=== PATIENT | female | born 1960 | race Caucasian/White ===

== ENCOUNTER 2019-02-24 09:42 | Inpatient (IN) | payer BC, OTHER ==
[~2019-02-24] VITALS: Ht 162.6 cm; Wt 110.2 kg
[~2019-02-24 09:42] MED LIST: ATEN25TA PO; ATOR40TA59 PO; BUPR100T6 PO; BUPR75TA5 PO; DABI150C PO; DABIGATRAN 75 MG; GENT30CR TP; GENTAMICIN; INSU100I13 SQ; INSULIN GLARGINE; LISI-130 PO; SERT25TA PO; SITA100T PO; TRIA15OI TP; triamcinolone cream
[2019-02-24 10:06] LABS: BASO # 0.1 x10^3/uL (0.0-0.2); BASO % 1 % (0-3); EOS # 0.1 x10^3/uL (0.0-0.7); EOS % 2 % (0-3); HEMATOCRIT 38.8 % (36.0-47.0); HEMOGLOBIN 13.1 g/dL (12.0-15.5); LYMPH # 2.2 x10^3/uL (1.0-4.8); LYMPH % 33 % (24-48); MEAN CORPUSCULAR HEMOGLOBIN 29 pg (25-35); MEAN CORPUSCULAR HGB CONC 34 g/dL (31-37); MEAN CORPUSCULAR VOLUME 87 fL (79-100); MONO # 0.4 x10^3/uL (0.0-1.1); MONO % 6 % (0-9); NEUT # 3.8 x10^3/uL (1.8-7.7); NEUT % 59 % (31-73); PLATELET COUNT 247 x10^3/uL (140-400); RED BLOOD COUNT 4.45 x10^6/uL (3.50-5.40); WHITE BLOOD COUNT 6.5 x10^3/uL (4.0-11.0)
--- NOTE | 2019-02-24 10:11 | PHYS DOC ---
Past Medical History Past Medical History: CVA, Diabetes-Type II, High Cholesterol, Hypertension Additional Past Medical Histor: PT HAD CVA IN 2010 WITH NO DEFICIT Past Surgical History: Knee Replacement, Other Additional Past Surgical Histo: R. ELBOW Alcohol Use: Occasionally Drug Use: None Adult General Chief Complaint Chief Complaint: SEIZURE HPI HPI Patient is a 59 year old female who presents with patient lives at [facility] because she had a stroke on December 17, 2018. Patient has right-sided deficits, right-sided facial droop and can only say yes or no. Patient does understand what you're saying and does follow commands. Today patient had a seizure that was witnessed by a the patient's roommate. Patient was sitting in her wheelchair when her left arm and head started moving to the left side that lasted approximately 2-3 minutes. Patient does not have a history of seizures. After the seizure the patient then slumped to the side but did not fall out of her wheelchair. She did not vomit. EMS and the Care Center states that the patient was postictal for 5-7 minutes but she is now at her baseline normal. Review of Systems Review of Systems Constitutional: Denies fever or chills [] Eyes: Denies change in visual acuity, redness, or eye pain [] HENT: Denies nasal congestion or sore throat [] Respiratory: Denies cough or shortness of breath [] Cardiovascular: No additional information not addressed in HPI [] GI: Denies abdominal pain, nausea, vomiting, bloody stools or diarrhea [] : Denies dysuria or hematuria [] Musculoskeletal: Denies back pain or joint pain [] Integument: Denies rash or skin lesions [] Neurologic: Seizure, headache, denies focal weakness or sensory changes [] Endocrine: Denies polyuria or polydipsia [] All other systems were reviewed and found to be within normal limits, except as documented in this note. Current Medications Current Medications Current Medications Medications (Trade) Dose Ordered Sig/Alice Start Time Stop Time Status Last Admin Dose Admin Sodium Chloride 1,000 ml @ 1,000 mls/hr 1X ONCE 02/24/19 10:45 02/24/19 11:44 Cancel Allergies Allergies Allergies Coded Allergies Type Severity Reaction Last Updated Verified Sulfa (Sulfonamide Antibiotics) Allergy Severe Anaphylaxis 07/22/14 Yes Physical Exam Physical Exam Constitutional: Well developed, well nourished, no acute distress, non-toxic appearance. [] HENT: Normocephalic, atraumatic, bilateral external ears normal, oropharynx moist, no oral exudates, nose normal. [] Eyes: PERRLA, EOMI, conjunctiva normal, no discharge. [] Neck: Normal range of motion, no tenderness, supple, no stridor. [] Cardiovascular:Heart rate regular rhythm, no murmur [] Lungs & Thorax: Bilateral breath sounds clear to auscultation [] Abdomen: Bowel sounds normal, soft, no tenderness, no masses, no pulsatile masses. [] Skin: Warm, dry, no erythema, no rash. [] Back: No tenderness, no CVA tenderness. [] Extremities: No tenderness, no cyanosis, no clubbing, Right arm and leg ROM not intact, no edema. [] Neurologic: Aphasia, Alert and oriented X 3, Right sided abnormal motor function, normal sensory function, Right sided focal deficits noted. [] Psychologic: Affect normal, judgement normal, mood normal. [] Current Patient Data Vital Signs Vital Signs Date Time Temp Pulse Resp B/P (MAP) Pulse Ox O2 Delivery O2 Flow Rate FiO2 02/24/19 11:06 86 16 96 02/24/19 09:44 98.7 151/73 (99) Room Air 98.7 Lab Values Laboratory Tests Test 02/24/19 09:55 02/24/19 11:04 White Blood Count 6.5 x10^3/uL (4.0-11.0) Red Blood Count 4.45 x10^6/uL (3.50-5.40) Hemoglobin 13.1 g/dL (12.0-15.5) Hematocrit 38.8 % (36.0-47.0) Mean Corpuscular Volume 87 fL (79-100) Mean Corpuscular Hemoglobin 29 pg (25-35) Mean Corpuscular Hemoglobin Concent 34 g/dL (31-37) Red Cell Distribution Width 14.0 % (11.5-14.5) Platelet Count 247 x10^3/uL (140-400) Neutrophils (%) (Auto) 59 % (31-73) Lymphocytes (%) (Auto) 33 % (24-48) Monocytes (%) (Auto) 6 % (0-9) Eosinophils (%) (Auto) 2 % (0-3) Basophils (%) (Auto) 1 % (0-3) Neutrophils # (Auto) 3.8 x10^3/uL (1.8-7.7) Lymphocytes # (Auto) 2.2 x10^3/uL (1.0-4.8) Monocytes # (Auto) 0.4 x10^3/uL (0.0-1.1) Eosinophils # (Auto) 0.1 x10^3/uL (0.0-0.7) Basophils # (Auto) 0.1 x10^3/uL (0.0-0.2) Prothrombin Time 13.4 SEC (11.7-14.0) Prothrombin Time INR 1.1 (0.8-1.1) Activated Partial Thromboplast Time 31 SEC (24-38) Sodium Level 143 mmol/L (136-145) Potassium Level 3.7 mmol/L (3.5-5.1) Chloride Level 105 mmol/L (98-107) Carbon Dioxide Level 27 mmol/L (21-32) Anion Gap 11 (6-14) Blood Urea Nitrogen 10 mg/dL (7-20) Creatinine 0.8 mg/dL (0.6-1.0) Estimated GFR (Cockcroft-Gault) 73.2 BUN/Creatinine Ratio 13 (6-20) Glucose Level 120 mg/dL (70-99) H Lactic Acid Level 3.8 mmol/L (0.4-2.0) H Calcium Level 9.2 mg/dL (8.5-10.1) Total Bilirubin 0.3 mg/dL (0.2-1.0) Aspartate Amino Transferase (AST) 12 U/L (15-37) L Alanine Aminotransferase (ALT) 13 U/L (14-59) L Alkaline Phosphatase 98 U/L (46-116) Troponin I Quantitative < 0.017 ng/mL (0.000-0.055) Total Protein 6.9 g/dL (6.4-8.2) Albumin 3.6 g/dL (3.4-5.0) Albumin/Globulin Ratio 1.1 (1.0-1.7) Urine Collection Type U cath Urine Color Yellow Urine Clarity Clear Urine pH 5.0 Urine Specific [place] 1.020 Urine Protein 30 mg/dL (NEG-TRACE) Urine Glucose (UA) Negative mg/dL (NEG) Urine Ketones (Stick) Negative mg/dL (NEG) Urine Blood Negative (NEG) Urine Nitrite Negative (NEG) Urine Bilirubin Negative (NEG) Urine Urobilinogen Dipstick 0.2 mg/dL (0.2 mg/dL) Urine Leukocyte Esterase Small (NEG) Urine RBC Occ /HPF (0-2) Urine WBC 5-10 /HPF (0-4) Urine Squamous Epithelial Cells Few /LPF Urine Renal Epithelial Cells Few /LPF Urine Bacteria Many /HPF (0-FEW) Urine Mucus Marked /LPF Laboratory Tests 02/24/19 09:55 Laboratory Tests 02/24/19 09:55 EKG EKG Sinus Rhythm and no STEMI Interpretation Time: [address] Puentes Radiology/Procedures Radiology/Procedures [] Impressions: [facility] [address] [place] [address] IMAGING REPORT Signed PATIENT: TOMMY PRIDECOUNT: [id number] : 1960 LOCATION: ER AGE: 59 SEX: F EXAM STATUS: REG ER ORD. PHYSICIAN: SOMMER MAI APRN REASON: new onset seizure hx stroke PROCEDURE: CT HEAD WO CONTRAST EXAM: CT Head without IV contrast CLINICAL HISTORY: New onset seizure, history of stroke COMPARISON: CT head 10/30/2010. TECHNIQUE: Routine CT of the head without contrast. Soft tissues and bone windows were reviewed. PQRS compliance statement - One or more of the following individualized dose reduction techniques were utilized for this study: 1. Automated exposure control 2. Adjustment of the mA and/or kV according to patient size 3. Use of iterative reconstruction technique FINDINGS: Chronic encephalomalacia of a large segment of the left frontal, parietal and temporal regions from old infarct. Associated chronic appearing calcifications are seen. Ex vacuo dilatation of the left lateral ventricle. Olivares-white differentiation is otherwise maintained with no evidence of edema. Subcortical, periventricular and deep white matter hypoattenuation may be seen with chronic small vessel disease. There is no mass effect or shift of the intracranial structures. The ventricles and cerebral sulci are prominent for the patients stated age consistent with generalized cerebral volume loss. The cerebellum and brainstem are unremarkable. The calvarium demonstrates no evidence of fracture or focal lesion. There is normal aeration of the visualized paranasal sinuses and mastoid air cells. The visualized portions of the orbits are normal. IMPRESSION: 1. No evidence for acute intracranial abnormality. 2. Chronic encephalomalacia likely from old infarct involving large portions of the frontal, parietal and temporal regions. Electronically signed by: Josiah Kidd MD (02/24/2019 10:34 AM) [facility] DICTATED and SIGNED BY: JOSIAH KIDD MD DATE: 02/24/19 1034 [facility] [address] [place] [address] IMAGING REPORT Signed PATIENT: TOMMY PRIDEUNT: [id number] : 1960 LOCATION: ER AGE: 59 SEX: F EXAM STATUS: REG ER ORD. PHYSICIAN: SOMMER MAI APRN REASON: new onset seizure. PROCEDURE: PORTABLE CHEST 1V PORTABLE CHEST 1V History: New onset seizure Comparison: October 30, 2010 Findings: Single view of the chest is submitted. There is no infiltrate, pneumothorax, or effusion. The pericardial cardiac silhouette is within normal limits in size. There is atherosclerotic calcification near aortic arch. Impression: 1. There is no radiographic evidence of acute cardiopulmonary disease. Electronically signed by: Maxwell Medel MD (02/24/2019 10:43 AM) [facility] DICTATED and SIGNED BY: MAXWELL MEDEL MD DATE: 02/24/19 1043 Course & Med Decision Making Course & Med Decision Making Patient is a 59 year old female who presents with patient lives at [facility] because she had a stroke on December 17, 2018. Patient has right-sided deficits, right-sided facial droop and can only say yes or no. Patient does understand what you're saying and does follow commands. Today patient had a seizure that was witnessed by a the patient's roommate. Patient was sitting in her wheelchair when her left arm and head started moving to the left side that lasted approximately 2-3 minutes. Patient does not have a history of seizures. After the seizure the patient then slumped to the side but did not fall out of her wheelchair. She did not vomit. EMS and the Care Center states that the patient was postictal for 5-7 minutes but she is now at her baseline normal. Patient d enies any pain, nausea, vomiting, diarrhea, abdominal pain, new weakness, dizziness, chest pain, shortness of air, numbness or tingling. When asked if patient is having a headache she nodded yes when asked if it was a slight headache she nodded yes and stated no to a bad headache. Patient stated no to visual changes. Abdomen is soft and nontender. Lungs are clear to auscultation all lobes. Skin is pink warm and dry. PERRLA. Patient is able to follow commands and move and lift her left arm and leg without any difficulties. Patient does follow commands and answers yes or no appropriately. Mucus membranes are moist. EKG shows sinus rhythm and no STEMI. Vital signs are within normal range. Afebr ile. Patient did just recently on February 21 start sertraline for depression but that is only new medication. Patient has a history of a CVA in 2009 that did not have deficits, CVA 2019 with the right-sided deficits and communication deficit, hypertension, diabetes, high cholesterol, depression, vascular dementia with behavioral disturbance, dysphasia, a facial. CT head shows no acute findings. Chest x-ray is no acute findings. Patient is admitted by Dr. denney and I have consulted neurology. Letty Disclaimer Letty Disclaimer This electronic medical record was generated, in whole or in part, using a voice recognition dictation system. NIHSS Stroke Scale NIH Stroke Scale: NIH Stroke Scale Response (Comments) Value Level of Consciousness: 0 Alert/Responsive 0 LOC Questions: 0 Answers both correctly (states yes or no only but appropriately) 0 LOC Commands: 0 Performs both tasks 0 Best Gaze: 0 Normal 0 Visual: 0 No visual loss 0 Facial Palsy: 2 Partial paralysis (Right facial droop) 2 Motor - Left Arm 0 No drift 0 Motor - Right Arm 3 Limb falls 3 Motor - Left Leg 0 No drift 0 Motor: Right Leg 3 Limb falls 3 Limb Ataxia: 1 One limb (Right sided weakness) 1 Sensory: 1 Mid to moderate loss (right sided) 1 Best Language: 1 Mild to mod aphasia (Patient nods and states yes or no only but appropriately) 1 Dysathria: 0 Normal 0 Extinction and Inattention: 0 Normal 0 Total 11 Departure Departure Impression: Primary Impression: Seizure Disposition: 09 ADMITTED INPATIENT Admitting Physician: QI Condition: STABLE Referrals: UNKNOWN PCP NAME (PCP) SOMMER MAI APRN Feb 24, 2019 10:11
--- NOTE | 2019-02-24 10:13 | EKG ---
[facility] [address] [place] [address] Test Date: 2019-02-24 Test Time: 09:47:37 Pat Name: TOMMY PRIDE Department: Room: Gender: F Identity Access Management Architect: : 1960 Requested By: SOMMER MAI Order Number: [id number] Reading MD: Measurements Intervals [place] Rate: 88 P: 47 HI: 192 QRS: -34 QRSD: 80 T: 44 QT: 360 QTc: 439 Interpretive Statements SINUS RHYTHM ABNORMAL LEFT AXIS DEVIATION QRS(T) CONTOUR ABNORMALITY CONSIDER ANTEROSEPTAL MYOCARDIAL DAMAGE CONSISTENT WITH INFERIOR INFARCT PROBABLY OLD ABNORMAL ECG No previous ECG available for comparison
[2019-02-24 10:15] LABS: PROTHROMBIN TIME PATIENT 13.4 SEC (11.7-14.0)
[2019-02-24 10:18] LABS: CALCIUM 9.2 mg/dL (8.5-10.1); CREATININE 0.8 mg/dL (0.6-1.0); GFR 73.2; POTASSIUM 3.7 mmol/L (3.5-5.1)
[2019-02-24 10:24] LABS: ALBUMIN 3.6 g/dL (3.4-5.0); ALBUMIN/GLOBULIN RATIO 1.1 (1.0-1.7); TOTAL BILIRUBIN 0.3 mg/dL (0.2-1.0); TOTAL PROTEIN 6.9 g/dL (6.4-8.2)
--- NOTE | 2019-02-24 10:37 | RAD ---
EXAM: CT Head without IV contrast CLINICAL HISTORY: New onset seizure, history of stroke COMPARISON: CT head 10/30/2010. TECHNIQUE: Routine CT of the head without contrast. Soft tissues and bone windows were reviewed. PQRS compliance statement - One or more of the following individualized dose reduction techniques were utilized for this study: 1. Automated exposure control 2. Adjustment of the mA and/or kV according to patient size 3. Use of iterative reconstruction technique FINDINGS: Chronic encephalomalacia of a large segment of the left frontal, parietal and temporal regions from old infarct. Associated chronic appearing calcifications are seen. Ex vacuo dilatation of the left lateral ventricle. Olivares-white differentiation is otherwise maintained with no evidence of edema. Subcortical, periventricular and deep white matter hypoattenuation may be seen with chronic small vessel disease. There is no mass effect or shift of the intracranial structures. The ventricles and cerebral sulci are prominent for the patients stated age consistent with generalized cerebral volume loss. The cerebellum and brainstem are unremarkable. The calvarium demonstrates no evidence of fracture or focal lesion. There is normal aeration of the visualized paranasal sinuses and mastoid air cells. The visualized portions of the orbits are normal. IMPRESSION: 1. No evidence for acute intracranial abnormality. 2. Chronic encephalomalacia likely from old infarct involving large portions of the frontal, parietal and temporal regions. Electronically signed by: Josiah Cannon MD (02/24/2019 10:34 AM) [facility]
[2019-02-24] MEDS ORDERED: IV NORMAL SALINE 1000ML BAG 1,000 ML IV ONE ×3 (10:45→16:30)
--- NOTE | 2019-02-24 10:46 | RAD ---
PORTABLE CHEST 1V History: New onset seizure Comparison: October 30, 2010 Findings: Single view of the chest is submitted. There is no infiltrate, pneumothorax, or effusion. The pericardial cardiac silhouette is within normal limits in size. There is atherosclerotic calcification near aortic arch. Impression: 1. There is no radiographic evidence of acute cardiopulmonary disease. Electronically signed by: Apollo Dubois MD (02/24/2019 10:43 AM) [facility]
[2019-02-24 11:14] LABS: BILIRUBIN,URINE NEGATIVE (NEG); CLARITY,URINE CLEAR; COLOR,URINE YELLOW; NITRITE,URINE NEGATIVE (NEG); PROTEIN,URINE 30 mg/dL (NEG-TRACE); UROBILINOGEN,URINE 0.2 mg/dL (0.2 mg/dL)
[2019-02-24 11:27] LABS: BACTERIA,URINE MANY /HPF (0-FEW); SQUAMOUS EPITHELIAL CELL,UR FEW /LPF
[2019-02-24 11:29] LABS: RBC,URINE OCC /HPF (0-2)
[2019-02-24] MEDS ORDERED: ONDANSETRON PF 4 MG/2 ML VIAL. IV PRN (11:45)
--- NOTE | 2019-02-24 15:20 | PDOC2 ---
NEUROLOGY CONSULT Date of Admission Date of Admission DATE: 02/24/19 TIME: 14:55 Reason for Consult Reason for Consult: IMPRESSION: Seizure x 2 on 02/24/19 new onset. Metabolic encephalopathy. UTI. 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 Right hemiplegia. Aphasia, mixed. DM. HTN. HLD. Obesity. RECOMMENDATIONS/PLAN: Ativan 1-2 mg IV PRN q4-6h if has further seizures. Keppra 500 mg IV q12h, or PO if can swallow. Resume her home anticoagulant if she has been on it. Seizure precautions. EEG. Lab: see orders. OT/PT. HISTORY OF THE PRESENT ILLNESS: This is a 59-year-old female patient with above medical and neurological diseases was brought to the ER of [facility] due to a seizure. She lives at [facility] because after a recent stroke reportedly on December 17, 2018 per ER docu. She had a large left MCA territory infarct in 09/2017 and was treated at . She had right side hemiplegia since and aphasia only can say yes or no, but not able to understand nor follow commands. She had a seizure that was witnessed by her roommate in facility. Patient was sitting in her wheelchair when her left arm and head started moving to the left side that lasted approximately 2-3 minutes. After the seizure the patient then slumped to the side but did not fall out of her wheelchair. EMS and the Care Center states that the patient was postictal for 5-7 minutes. She had another seizure on the floor for about 3 minutes. Past Medical History CVA, Diabetes-Type II, High Cholesterol, Hypertension, CVA. PAST SURGERY HISTORY: Knee Replacement, R. ELBOW ALLERGY: Unknown MEDICATIONS: Refer to [facility] HISTORY: Non contributory. SOCIAL HISTORY: Lives in [facility] currently. Denies current smoking, drinking, and illicit drug use. REVIEW OF SYSTEMS: Constitutional: Obesity. Head: No traumatic brain or head injury. Skin: No edema, or rash. Ear: No infection. Eyes: No vision loss or color blindness. Nose: No bleeding or purulent discharges. Hearing: No hearing decrease. Neck: No injury. Breast: No history of cancer, masses,or discharges. Cardiac: HTN, HLD. Pulmonary: No COPD. GI: No GI ulcer, GI bleeding. Urinary/genital: UTI. Endocrinologic: Diabetes Mellitus, obesity. Skeletomuscular: Right side hemiplegia. Neurological: see HP. Psychiatric: Denies drug use/abuse. Otherwise, not [id number] review of systems. PHYSICAL EXAMINATION: General appearance is in acute distress. HEENT: Normocephalic and nontraumatic. Eyes, nose, ears, and throat are unremarkable. Neck is supple. No lymphadenopathy. No bruits are heard over the carotid artery. No crepitus. Cardiovascular: S1, S2, regular rate and rhythm. 3/6 SM heard. Pulmonary: Mildly decreased to auscultation bilaterally. Abdomen: Bowel sounds are positive. Abdomen is soft, nontender, and nondistended. Extremities: No rash, lesions, or edema. No restriction of range of motion NEUROLOGICAL EXAMINATION: Sleepiness. Not oriented to time, place and person. PERRL. EOMI. CN: no focal findings. Muscle tone: Increased in right UE and LE. within normal. Muscle strength: Minimal movements in right side. 4-5 left side. DTR: 1-2 Plantar reflex: Neutral response bilaterally Gait: not examined in bed. Sensory exam: no acute abnormal findings. No other cerebellar signs elicited. F-T-N test not performed due to not follow commands . Current Medications Current Medications Current Medications Sodium Chloride 1,000 ml @ 1,000 mls/hr 1X ONCE IV Last administered on 02/24/19at 11:10; Start 02/24/19 at 10:45; Stop 02/24/19 at 11:44; Status DC Sodium Chloride 1,000 ml @ 1,000 mls/hr 1X ONCE IV ; Start 02/24/19 at 10:45; Stop 02/24/19 at 11:44; Status Cancel Ondansetron HCl (Zofran) 4 mg PRN Q8HRS PRN IV NAUSEA/VOMITING; Start 02/24/19 at 11:45; Stop 02/25/19 at 11:44 Lorazepam (Ativan Inj) 4 mg PRN Q4HRS PRN IV seizure Last administered on 02/24/19at 14:45; Start 02/24/19 at 14:00 Levetiracetam (Keppra) 500 mg BID PO ; Start 02/24/19 at 21:00 Active Scripts Active Reported [triamcinolone cream] [gentamicin cream] [Lantus 30HS ss] [pradaxa 75mg BID] Wellbutrin (Bupropion Hcl) 100 Mg Tablet 150 Mg PO DAILY Januvia (Sitagliptin Phosphate) 100 Mg Tablet 1 Tab PO DAILY Atorvastatin Calcium 40 Mg Tablet 1 Tab PO DAILY Lisinopril 40 Mg Tablet 1 Tab PO DAILY Atenolol 25 Mg Tablet 25 Mg PO BID Triamcinolone Acetonide 15 Gm Oint...g. 1 Meg TP PRN PRN Gentamicin Sulfate 15 Gm Cream..g. 1 Meg TP PRN PRN Zoloft (Sertraline Hcl) 25 Mg Tablet 1 Tab PO HS Wellbutrin (Bupropion Hcl) 75 Mg Tablet 2 Tab PO DAILY Lantus Solostar (Insulin Glargine,Hum.rec.anlog) 100 Unit/1 Ml Insuln.pen 30 Uni t SQ QHS Januvia (Sitagliptin Phosphate) 100 Mg Tablet 1 Tab PO DAILY Pradaxa (Dabigatran Etexilate Mesylate) 150 Mg Capsule 75 Mg PO BID Atorvastatin Calcium 40 Mg Tablet 1 Tab PO DAILY Lisinopril 40 Mg Tablet 1 Tab PO DAILY Atenolol 25 Mg Tablet 1 Tab PO BID Allergies Allergies: Allergies Coded Allergies Type Severity Reaction Last Updated Verified Sulfa (Sulfonamide Antibiotics) Allergy Severe Anaphylaxis 07/22/14 Yes ROS Review of System The patient denies any associated fevers, chills, headache, ear pain, rhinorrhea, sore throat, stiff neck, productive cough, chest pain, shortness of breath, back or flank pain, abdominal pain, nausea, vomiting, diarrhea, constipation, dysuria, rash, numbness, weakness, tingling, incontinence, difficulty ambulating, or diaphoresis. Physical Exam Physical Exam General: Well developed, well nourished, no acute distress, well appearing HEENT: Pupils equally round and reactive to light, EOMI, no discharge, normal conjunctiva Neck: Supple, no nuchal rigidity, no JVD, trachea midline, no tenderness Cardiac: RRR, no murmurs, no gallops, no rubs Chest/Lungs: CTAB, no wheeze, no rhonchi, no crackles Abdomen: soft, non-distended, no guarding, no peritoneal signs, non-tender Back: No tenderness Extremities: no edema, pulses intact, non-tender,capillary refill <3 sec bilateral upper and lower extremities, Neuro: Alert and oriented x 4, no focal deficits, normal speech Vitals Vitals: Vital Signs Date Time Temp Pulse Resp B/P (MAP) Pulse Ox O2 Delivery O2 Flow Rate FiO2 02/24/19 12:36 78 18 98 02/24/19 09:44 98.7 151/73 (99) Room Air 98.7 Labs Labs Laboratory Tests Test 02/24/19 09:55 02/24/19 11:04 White Blood Count 6.5 x10^3/uL (4.0-11.0) Red Blood Count 4.45 x10^6/uL (3.50-5.40) Hemoglobin 13.1 g/dL (12.0-15.5) Hematocrit 38.8 % (36.0-47.0) Mean Corpuscular Volume 87 fL (79-100) Mean Corpuscular Hemoglobin 29 pg (25-35) Mean Corpuscular Hemoglobin Concent 34 g/dL (31-37) Red Cell Distribution Width 14.0 % (11.5-14.5) Platelet Count 247 x10^3/uL (140-400) Neutrophils (%) (Auto) 59 % (31-73) Lymphocytes (%) (Auto) 33 % (24-48) Monocytes (%) (Auto) 6 % (0-9) Eosinophils (%) (Auto) 2 % (0-3) Basophils (%) (Auto) 1 % (0-3) Neutrophils # (Auto) 3.8 x10^3/uL (1.8-7.7) Lymphocytes # (Auto) 2.2 x10^3/uL (1.0-4.8) Monocytes # (Auto) 0.4 x10^3/uL (0.0-1.1) Eosinophils # (Auto) 0.1 x10^3/uL (0.0-0.7) Basophils # (Auto) 0.1 x10^3/uL (0.0-0.2) Prothrombin Time 13.4 SEC (11.7-14.0) Prothromb Time International Ratio 1.1 (0.8-1.1) Activated Partial Thromboplast Time 31 SEC (24-38) Sodium Level 143 mmol/L (136-145) Potassium Level 3.7 mmol/L (3.5-5.1) Chloride Level 105 mmol/L (98-107) Carbon Dioxide Level 27 mmol/L (21-32) Anion Gap 11 (6-14) Blood Urea Nitrogen 10 mg/dL (7-20) Creatinine 0.8 mg/dL (0.6-1.0) Estimated GFR (Cockcroft-Gault) 73.2 BUN/Creatinine Ratio 13 (6-20) Glucose Level 120 mg/dL (70-99) Lactic Acid Level 3.8 mmol/L (0.4-2.0) Calcium Level 9.2 mg/dL (8.5-10.1) Total Bilirubin 0.3 mg/dL (0.2-1.0) Aspartate Amino Transf (AST/SGOT) 12 U/L (15-37) Alanine Aminotransferase (ALT/SGPT) 13 U/L (14-59) Alkaline Phosphatase 98 U/L (46-116) Troponin I Quantitative < 0.017 ng/mL (0.000-0.055) Total Protein 6.9 g/dL (6.4-8.2) Albumin 3.6 g/dL (3.4-5.0) Albumin/Globulin Ratio 1.1 (1.0-1.7) Urine Collection Type U cath Urine Color Yellow Urine Clarity Clear Urine pH 5.0 Urine Specific [place] 1.020 Urine Protein 30 mg/dL (NEG-TRACE) Urine Glucose (UA) Negative mg/dL (NEG) Urine Ketones (Stick) Negative mg/dL (NEG) Urine Blood Negative (NEG) Urine Nitrite Negative (NEG) Urine Bilirubin Negative (NEG) Urine Urobilinogen Dipstick 0.2 mg/dL (0.2 mg/dL) Urine Leukocyte Esterase Small (NEG) Urine RBC Occ /HPF (0-2) Urine WBC 5-10 /HPF (0-4) Urine Squamous Epithelial Cells Few /LPF Urine Renal Epithelial Cells Few /LPF Urine Bacteria Many /HPF (0-FEW) Urine Mucus Marked /LPF Laboratory Tests Test 02/24/19 09:55 02/24/19 11:04 White Blood Count 6.5 x10^3/uL (4.0-11.0) Red Blood Count 4.45 x10^6/uL (3.50-5.40) Hemoglobin 13.1 g/dL (12.0-15.5) Hematocrit 38.8 % (36.0-47.0) Mean Corpuscular Volume 87 fL (79-100) Mean Corpuscular Hemoglobin 29 pg (25-35) Mean Corpuscular Hemoglobin Concent 34 g/dL (31-37) Red Cell Distribution Width 14.0 % (11.5-14.5) Platelet Count 247 x10^3/uL (140-400) Neutrophils (%) (Auto) 59 % (31-73) Lymphocytes (%) (Auto) 33 % (24-48) Monocytes (%) (Auto) 6 % (0-9) Eosinophils (%) (Auto) 2 % (0-3) Basophils (%) (Auto) 1 % (0-3) Neutrophils # (Auto) 3.8 x10^3/uL (1.8-7.7) Lymphocytes # (Auto) 2.2 x10^3/uL (1.0-4.8) Monocytes # (Auto) 0.4 x10^3/uL (0.0-1.1) Eosinophils # (Auto) 0.1 x10^3/uL (0.0-0.7) Basophils # (Auto) 0.1 x10^3/uL (0.0-0.2) Prothrombin Time 13.4 SEC (11.7-14.0) Prothromb Time International Ratio 1.1 (0.8-1.1) Activated Partial Thromboplast Time 31 SEC (24-38) Sodium Level 143 mmol/L (136-145) Potassium Level 3.7 mmol/L (3.5-5.1) Chloride Level 105 mmol/L (98-107) Carbon Dioxide Level 27 mmol/L (21-32) Anion Gap 11 (6-14) Blood Urea Nitrogen 10 mg/dL (7-20) Creatinine 0.8 mg/dL (0.6-1.0) Estimated GFR (Cockcroft-Gault) 73.2 BUN/Creatinine Ratio 13 (6-20) Glucose Level 120 mg/dL (70-99) Lactic Acid Level 3.8 mmol/L (0.4-2.0) Calcium Level 9.2 mg/dL (8.5-10.1) Total Bilirubin 0.3 mg/dL (0.2-1.0) Aspartate Amino Transf (AST/SGOT) 12 U/L (15-37) Alanine Aminotransferase (ALT/SGPT) 13 U/L (14-59) Alkaline Phosphatase 98 U/L (46-116) Troponin I Quantitative < 0.017 ng/mL (0.000-0.055) Total Protein 6.9 g/dL (6.4-8.2) Albumin 3.6 g/dL (3.4-5.0) Albumin/Globulin Ratio 1.1 (1.0-1.7) Urine Collection Type U cath Urine Color Yellow Urine Clarity Clear Urine pH 5.0 Urine Specific [place] 1.020 Urine Protein 30 mg/dL (NEG-TRACE) Urine Glucose (UA) Negative mg/dL (NEG) Urine Ketones (Stick) Negative mg/dL (NEG) Urine Blood Negative (NEG) Urine Nitrite Negative (NEG) Urine Bilirubin Negative (NEG) Urine Urobilinogen Dipstick 0.2 mg/dL (0.2 mg/dL) Urine Leukocyte Esterase Small (NEG) Urine RBC Occ /HPF (0-2) Urine WBC 5-10 /HPF (0-4) Urine Squamous Epithelial Cells Few /LPF Urine Renal Epithelial Cells Few /LPF Urine Bacteria Many /HPF (0-FEW) Urine Mucus Marked /LPF PARVEEN NAIK MD Feb 24, 2019 15:20
[2019-02-24 15:22] VITALS: BP 154/72
[2019-02-24] MEDS ORDERED: DEXT15DR5 EACHEYE (15:43)
[2019-02-24] MEDS ORDERED: ASPI-630 PO (15:43)
[2019-02-24] MEDS ORDERED: MULT-132 PO (15:44)
[2019-02-24] MEDS ORDERED: SERT100T PO (15:46)
[2019-02-24] MEDS ORDERED: FOLI1TAB16 PO (15:46)
[2019-02-24] MEDS ORDERED: DONE10TA7 PO (15:46)
[2019-02-24] MEDS ORDERED: METF500T16 PO (15:46)
[2019-02-24] MEDS ORDERED: LORA10TA3 PO (15:46)
[2019-02-24] MEDS ORDERED: TRAM50TA PO (15:47)
[2019-02-24] MEDS ORDERED: THIA100T22 PO (15:47)
[2019-02-24] MEDS ORDERED: traMADol 50 MG TABLET PO PRN (16:30)
--- NOTE | 2019-02-24 16:33 | PDOC1 ---
History and Physical Date of Admission Date of Admission DATE: 02/24/19 TIME: 16:29 History of Present Illness History of Present Illness Mary is a 59 year old female who presents with patient lives at [facility] because she had a stroke on December 17, 2018. Patient has right-sided deficits, right-sided facial droop and can only say yes or no. Patient does understand what you're saying and does follow commands. Today patient had a seizure that was witnessed by a the patient's roommate. Patient was sitting in her wheelchair when her left arm and head started moving to the left side that lasted approximately 2-3 minutes. Patient does not have a history of seizures. After the seizure the patient then slumped to the side but did not fall out of her wheelchair. She did not vomit. EMS and the Care Center states that the patient was postictal for 5-7 minutes but she is now at her baseline normal. Past Medical History Cardiovascular: HTN CENTRAL NERVOUS SYSTEM: CVA Psych: Anxiety, Depression Family History Family History: Family History Unknown Social History Smoke: No Current Problem List Problem List Problems Medical Problems: (1) Seizure Status: Acute Current Medications Current Medications Current Medications Sodium Chloride 1,000 ml @ 1,000 mls/hr 1X ONCE IV Last administered on 02/24/19at 11:10; Start 02/24/19 at 10:45; Stop 02/24/19 at 11:44; Status DC Sodium Chloride 1,000 ml @ 1,000 mls/hr 1X ONCE IV ; Start 02/24/19 at 10:45; Stop 02/24/19 at 11:44; Status Cancel Ondansetron HCl (Zofran) 4 mg PRN Q8HRS PRN IV NAUSEA/VOMITING; Start 02/24/19 at 11:45; Stop 02/25/19 at 11:44 Lorazepam (Ativan Inj) 4 mg PRN Q4HRS PRN IV seizure Last administered on 02/24/19at 14:45; Start 02/24/19 at 14:00 Levetiracetam (Keppra) 500 mg BID PO ; Start 02/24/19 at 21:00 Aspirin (Winnie Aspirin) 325 mg [id number] PO ; Start 02/25/19 at 08:00 Active Scripts Active Reported Tramadol Hcl 50 Mg Tablet 50 Mg PO Q6HRS PRN Vitamin B-1 (Thiamine Mononitrate) 100 Mg Tablet 100 Mg PO DAILY Zoloft (Sertraline Hcl) 100 Mg Tablet 150 Mg PO DAILY Metformin Hcl 500 Mg Tablet 500 Mg PO BIDWMEALS Loratadine 10 Mg Tablet 1 Tab PO DAILY Folic Acid 1 Mg Tablet 1 Tab PO DAILY Donepezil Hcl 10 Mg Tablet 10 Mg PO HS A Thru Z Advanced Formula Tab (Multivitamin W-Minerals/Lutein) 1 Each Tablet 1 Each PO DAILY Artificial Tears Eye Drops (Dextran 70/Hypromellose) 15 Ml Drops 1 Drop EACHEYE QID PRN Aspirin 81 Mg Tab.chew 1 Tab PO DAILY Atorvastatin Calcium 40 Mg Tablet 1 Tab PO DAILY Wellbutrin (Bupropion Hcl) 75 Mg Tablet 1 Tab PO BID Allergies Allergies: Coded Allergies: Sulfa (Sulfonamide Antibiotics) (Verified Allergy, Severe, Anaphylaxis, 07/22/14) ROS Review of System unable, pt seizing, then post-ictal Physical Exam General: Other (obtunded, post-ictal) HEENT: Atraumatic, EOMI Lungs: Clear to auscultation Heart: S1S2, RRR Extremities: No clubbing, Normal pulses Skin: No rashes Neuro: Normal tone, Sensation intact, Cranial nerves 3-12 NL Psych/Mental Status: Other (obtunded) Vitals Vitals Vital Signs Date Time Temp Pulse Resp B/P (MAP) Pulse Ox O2 Delivery O2 Flow Rate FiO2 02/24/19 12:36 78 18 98 02/24/19 09:44 98.7 151/73 (99) Room Air 98.7 Labs Labs Laboratory Tests Test 02/24/19 09:55 02/24/19 11:04 02/24/19 13:50 White Blood Count 6.5 x10^3/uL (4.0-11.0) Red Blood Count 4.45 x10^6/uL (3.50-5.40) Hemoglobin 13.1 g/dL (12.0-15.5) Hematocrit 38.8 % (36.0-47.0) Mean Corpuscular Volume 87 fL (79-100) Mean Corpuscular Hemoglobin 29 pg (25-35) Mean Corpuscular Hemoglobin Concent 34 g/dL (31-37) Red Cell Distribution Width 14.0 % (11.5-14.5) Platelet Count 247 x10^3/uL (140-400) Neutrophils (%) (Auto) 59 % (31-73) Lymphocytes (%) (Auto) 33 % (24-48) Monocytes (%) (Auto) 6 % (0-9) Eosinophils (%) (Auto) 2 % (0-3) Basophils (%) (Auto) 1 % (0-3) Neutrophils # (Auto) 3.8 x10^3/uL (1.8-7.7) Lymphocytes # (Auto) 2.2 x10^3/uL (1.0-4.8) Monocytes # (Auto) 0.4 x10^3/uL (0.0-1.1) Eosinophils # (Auto) 0.1 x10^3/uL (0.0-0.7) Basophils # (Auto) 0.1 x10^3/uL (0.0-0.2) Prothrombin Time 13.4 SEC (11.7-14.0) Prothromb Time International Ratio 1.1 (0.8-1.1) Activated Partial Thromboplast Time 31 SEC (24-38) Sodium Level 143 mmol/L (136-145) Potassium Level 3.7 mmol/L (3.5-5.1) Chloride Level 105 mmol/L (98-107) Carbon Dioxide Level 27 mmol/L (21-32) Anion Gap 11 (6-14) Blood Urea Nitrogen 10 mg/dL (7-20) Creatinine 0.8 mg/dL (0.6-1.0) Estimated GFR (Cockcroft-Gault) 73.2 BUN/Creatinine Ratio 13 (6-20) Glucose Level 120 mg/dL (70-99) Lactic Acid Level 3.8 mmol/L (0.4-2.0) 9.4 mmol/L (0.4-2.0) Calcium Level 9.2 mg/dL (8.5-10.1) Total Bilirubin 0.3 mg/dL (0.2-1.0) Aspartate Amino Transf (AST/SGOT) 12 U/L (15-37) Alanine Aminotransferase (ALT/SGPT) 13 U/L (14-59) Alkaline Phosphatase 98 U/L (46-116) Troponin I Quantitative < 0.017 ng/mL (0.000-0.055) Total Protein 6.9 g/dL (6.4-8.2) Albumin 3.6 g/dL (3.4-5.0) Albumin/Globulin Ratio 1.1 (1.0-1.7) Urine Collection Type U cath Urine Color Yellow Urine Clarity Clear Urine pH 5.0 Urine Specific [place] 1.020 Urine Protein 30 mg/dL (NEG-TRACE) Urine Glucose (UA) Negative mg/dL (NEG) Urine Ketones (Stick) Negative mg/dL (NEG) Urine Blood Negative (NEG) Urine Nitrite Negative (NEG) Urine Bilirubin Negative (NEG) Urine Urobilinogen Dipstick 0.2 mg/dL (0.2 mg/dL) Urine Leukocyte Esterase Small (NEG) Urine RBC Occ /HPF (0-2) Urine WBC 5-10 /HPF (0-4) Urine Squamous Epithelial Cells Few /LPF Urine Renal Epithelial Cells Few /LPF Urine Bacteria Many /HPF (0-FEW) Urine Mucus Marked /LPF Laboratory Tests Test 02/24/19 09:55 02/24/19 11:04 02/24/19 13:50 White Blood Count 6.5 x10^3/uL (4.0-11.0) Red Blood Count 4.45 x10^6/uL (3.50-5.40) Hemoglobin 13.1 g/dL (12.0-15.5) Hematocrit 38.8 % (36.0-47.0) Mean Corpuscular Volume 87 fL (79-100) Mean Corpuscular Hemoglobin 29 pg (25-35) Mean Corpuscular Hemoglobin Concent 34 g/dL (31-37) Red Cell Distribution Width 14.0 % (11.5-14.5) Platelet Count 247 x10^3/uL (140-400) Neutrophils (%) (Auto) 59 % (31-73) Lymphocytes (%) (Auto) 33 % (24-48) Monocytes (%) (Auto) 6 % (0-9) Eosinophils (%) (Auto) 2 % (0-3) Basophils (%) (Auto) 1 % (0-3) Neutrophils # (Auto) 3.8 x10^3/uL (1.8-7.7) Lymphocytes # (Auto) 2.2 x10^3/uL (1.0-4.8) Monocytes # (Auto) 0.4 x10^3/uL (0.0-1.1) Eosinophils # (Auto) 0.1 x10^3/uL (0.0-0.7) Basophils # (Auto) 0.1 x10^3/uL (0.0-0.2) Prothrombin Time 13.4 SEC (11.7-14.0) Prothromb Time International Ratio 1.1 (0.8-1.1) Activated Partial Thromboplast Time 31 SEC (24-38) Sodium Level 143 mmol/L (136-145) Potassium Level 3.7 mmol/L (3.5-5.1) Chloride Level 105 mmol/L (98-107) Carbon Dioxide Level 27 mmol/L (21-32) Anion Gap 11 (6-14) Blood Urea Nitrogen 10 mg/dL (7-20) Creatinine 0.8 mg/dL (0.6-1.0) Estimated GFR (Cockcroft-Gault) 73.2 BUN/Creatinine Ratio 13 (6-20) Glucose Level 120 mg/dL (70-99) Lactic Acid Level 3.8 mmol/L (0.4-2.0) 9.4 mmol/L (0.4-2.0) Calcium Level 9.2 mg/dL (8.5-10.1) Total Bilirubin 0.3 mg/dL (0.2-1.0) Aspartate Amino Transf (AST/SGOT) 12 U/L (15-37) Alanine Aminotransferase (ALT/SGPT) 13 U/L (14-59) Alkaline Phosphatase 98 U/L (46-116) Troponin I Quantitative < 0.017 ng/mL (0.000-0.055) Total Protein 6.9 g/dL (6.4-8.2) Albumin 3.6 g/dL (3.4-5.0) Albumin/Globulin Ratio 1.1 (1.0-1.7) Urine Collection Type U cath Urine Color Yellow Urine Clarity Clear Urine pH 5.0 Urine Specific [place] 1.020 Urine Protein 30 mg/dL (NEG-TRACE) Urine Glucose (UA) Negative mg/dL (NEG) Urine Ketones (Stick) Negative mg/dL (NEG) Urine Blood Negative (NEG) Urine Nitrite Negative (NEG) Urine Bilirubin Negative (NEG) Urine Urobilinogen Dipstick 0.2 mg/dL (0.2 mg/dL) Urine Leukocyte Esterase Small (NEG) Urine RBC Occ /HPF (0-2) Urine WBC 5-10 /HPF (0-4) Urine Squamous Epithelial Cells Few /LPF Urine Renal Epithelial Cells Few /LPF Urine Bacteria Many /HPF (0-FEW) Urine Mucus Marked /LPF VTE Prophylaxis Ordered VTE Prophylaxis Devices: No VTE Pharmacological Prophylaxi: Yes Assessment/Plan Assessment/Plan seizure, new, was status, start sarah, neuro consult ativan PRN major depression weakness and debility post CVA hemiparesis admit GHANSHYAM VERDIN MD Feb 24, 2019 16:33
[2019-02-24] MEDS ORDERED: POLYVINYL ALCOHOL 1.4% OPHTH SOLUTION 15ML BOTTLE. OU PRN (17:15)
[2019-02-24] MEDS: metFORMIN 500 MG TABLET PO SCH (17:30)
[2019-02-24 19:20] VITALS: BP 147/75
[2019-02-24] MEDS: DONEPEZIL HCL 10 MG TABLET. PO SCH (20:38)
[2019-02-24] MEDS: ATORVASTATIN CALCIUM 40 MG TABLET. PO SCH (20:38)
[2019-02-24] MEDS: levETIRAcetam 500 MG TABLET PO SCH (20:38)
[2019-02-24] MEDS: buPROPion 75 MG TABLET. PO SCH (20:38)
--- NOTE | 2019-02-24 21:47 | NUR ---
This publications writer unsure if glucophage given per day rn.
[2019-02-24 23:20] VITALS: BP 150/70
[2019-02-25] VITALS (7 sets, daily range): BP systolic 109–155; BP diastolic 52–95
[2019-02-25 04:59] LABS: BASO % 1 % (0-3); EOS % 1 % (0-3); HEMOGLOBIN 12.2 g/dL (12.0-15.5); LYMPH # 3.1 x10^3/uL (1.0-4.8); LYMPH % 38 % (24-48); MEAN CORPUSCULAR HEMOGLOBIN 30 pg (25-35); MEAN CORPUSCULAR HGB CONC 34 g/dL (31-37); MEAN CORPUSCULAR VOLUME 87 fL (79-100); MONO # 0.5 x10^3/uL (0.0-1.1); MONO % 7 % (0-9); NEUT # 4.5 x10^3/uL (1.8-7.7); NEUT % 55 % (31-73); PLATELET COUNT 244 x10^3/uL (140-400); RED BLOOD COUNT 4.13 x10^6/uL (3.50-5.40); WHITE BLOOD COUNT 8.1 x10^3/uL (4.0-11.0)
[2019-02-25 05:40] LABS: ALBUMIN 3.3 g/dL (3.4-5.0); ALBUMIN/GLOBULIN RATIO 1.1 (1.0-1.7); CALCIUM 9.2 mg/dL (8.5-10.1); CREATININE 0.5 mg/dL (0.6-1.0); GFR 125.9; POTASSIUM 3.3 mmol/L (3.5-5.1); TOTAL BILIRUBIN 0.4 mg/dL (0.2-1.0); TOTAL PROTEIN 6.3 g/dL (6.4-8.2)
[2019-02-25] MEDS: metFORMIN 500 MG TABLET PO SCH ×2 (08:00→16:05)
[2019-02-25] MEDS ORDERED: ASPIRIN CHEWABLE 81 MG TABLET. PO SCH (09:00)
--- NOTE | 2019-02-25 09:20 | NUR ---
Pt went to EEG this am @ 0750. Report given to Nannette HORNE who will now assume care. No assessment or meds given prior to pt going to EEG.
[2019-02-25] MEDS: FOLIC ACID 1 MG TABLET. PO SCH (10:02)
[2019-02-25] MEDS: buPROPion 75 MG TABLET. PO SCH ×2 (10:02→21:07)
[2019-02-25] MEDS: levETIRAcetam 500 MG TABLET PO SCH ×2 (10:02→21:07)
[2019-02-25] MEDS: SERTRALINE 50 MG TABLET. PO SCH (10:02)
[2019-02-25] MEDS: MULTIVITAMIN with MINERAL TABLET. PO SCH (10:02)
[2019-02-25] MEDS: ASPIRIN 325 MG TABLET PO SCH (10:02)
[2019-02-25] MEDS: ENOXAPARIN 40 MG/0.4 ML SYRINGE. SQ SCH (10:02)
[2019-02-25] MEDS: THIAMINE 100 MG TABLET. PO SCH (10:02)
[2019-02-25] MEDS: CETIRIZINE HCL 10 MG TABLET. PO SCH (10:06)
--- NOTE | 2019-02-25 10:19 | NUR ---
This nurse took over care of the patient around 0920. Patient was not in her room at the time and returned to the floor around 1000 in which morning medications were given and she was assessed by this RN. Will continue to monitor.
--- NOTE | 2019-02-25 10:49 | PDOC ---
PROGRESS NOTES Assessment Problems Medical Problems: (1) Aphasia, mixed Status: Chronic (2) Diabetes mellitus Status: Chronic (3) HLD (hyperlipidemia) Status: Chronic (4) HTN (hypertension) Status: Chronic (5) Major depression Status: Chronic (6) Metabolic encephalopathy Status: Chronic (7) Obesity Status: Chronic (8) Right hemiplegia Status: Chronic (9) Seizure Status: Acute (10) UTI (urinary tract infection) Status: Acute (11) Weakness Status: Acute Seizure x 2 on 02/24/19 new onset, EEG 02/25 shows left hemispheric slowing, no epileptic activity. Metabolic encephalopathy. UTI. 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 Right hemiplegia. Aphasia Plan Ativan 1-2 mg IV PRN q4-6h if has further seizures. Keppra 500 mg IV q12h, or PO if can swallow. Aspirin, statin Seizure precautions. OT/PT. Return to [facility] any time. Subjective Indicates no pain Objective Vital Signs Date Time Temp Pulse Resp B/P (MAP) Pulse Ox O2 Delivery O2 Flow Rate FiO2 02/25/19 10:13 Room Air 02/25/19 07:00 97.6 78 17 109/52 (71) 93 97.6 Intake and Output 02/25/19 06:59 Intake Total 2000 ml Balance 2000 ml Intake Oral 0 ml IV Total 2000 ml # Voids 6 # Bowel Movements 1 PHYSICAL EXAM Alert. Nonverbal, expressive and receptive aphasia PERRL. EOMI. CN: no focal findings. Muscle tone: spastic on right. Muscle strength: 4/5 left, 1/5 right DTR: 1+ Plantar reflex: flexor on left, silent on right Gait: not examined in bed. Sensory exam: no abnormal findings. No cerebellar signs elicited. Review of Relevant I have reviewed the following items kay (where applicable) has been applied. Labs Laboratory Tests Test 02/24/19 09:55 02/24/19 11:04 02/24/19 13:50 02/24/19 21:05 White Blood Count 6.5 x10^3/uL (4.0-11.0) Red Blood Count 4.45 x10^6/uL (3.50-5.40) Hemoglobin 13.1 g/dL (12.0-15.5) Hematocrit 38.8 % (36.0-47.0) Mean Corpuscular Volume 87 fL (79-100) Mean Corpuscular Hemoglobin 29 pg (25-35) Mean Corpuscular Hemoglobin Concent 34 g/dL (31-37) Red Cell Distribution Width 14.0 % (11.5-14.5) Platelet Count 247 x10^3/uL (140-400) Neutrophils (%) (Auto) 59 % (31-73) Lymphocytes (%) (Auto) 33 % (24-48) Monocytes (%) (Auto) 6 % (0-9) Eosinophils (%) (Auto) 2 % (0-3) Basophils (%) (Auto) 1 % (0-3) Neutrophils # (Auto) 3.8 x10^3/uL (1.8-7.7) Lymphocytes # (Auto) 2.2 x10^3/uL (1.0-4.8) Monocytes # (Auto) 0.4 x10^3/uL (0.0-1.1) Eosinophils # (Auto) 0.1 x10^3/uL (0.0-0.7) Basophils # (Auto) 0.1 x10^3/uL (0.0-0.2) Prothrombin Time 13.4 SEC (11.7-14.0) Prothromb Time International Ratio 1.1 (0.8-1.1) Activated Partial Thromboplast Time 31 SEC (24-38) Sodium Level 143 mmol/L (136-145) Potassium Level 3.7 mmol/L (3.5-5.1) Chloride Level 105 mmol/L (98-107) Carbon Dioxide Level 27 mmol/L (21-32) Anion Gap 11 (6-14) Blood Urea Nitrogen 10 mg/dL (7-20) Creatinine 0.8 mg/dL (0.6-1.0) Estimated GFR (Cockcroft-Gault) 73.2 BUN/Creatinine Ratio 13 (6-20) Glucose Level 120 mg/dL (70-99) Lactic Acid Level 3.8 mmol/L (0.4-2.0) 9.4 mmol/L (0.4-2.0) Calcium Level 9.2 mg/dL (8.5-10.1) Total Bilirubin 0.3 mg/dL (0.2-1.0) Aspartate Amino Transf (AST/SGOT) 12 U/L (15-37) Alanine Aminotransferase (ALT/SGPT) 13 U/L (14-59) Alkaline Phosphatase 98 U/L (46-116) Troponin I Quantitative < 0.017 ng/mL (0.000-0.055) Total Protein 6.9 g/dL (6.4-8.2) Albumin 3.6 g/dL (3.4-5.0) Albumin/Globulin Ratio 1.1 (1.0-1.7) Urine Collection Type U cath Urine Color Yellow Urine Clarity Clear Urine pH 5.0 Urine Specific [place] 1.020 Urine Protein 30 mg/dL (NEG-TRACE) Urine Glucose (UA) Negative mg/dL (NEG) Urine Ketones (Stick) Negative mg/dL (NEG) Urine Blood Negative (NEG) Urine Nitrite Negative (NEG) Urine Bilirubin Negative (NEG) Urine Urobilinogen Dipstick 0.2 mg/dL (0.2 mg/dL) Urine Leukocyte Esterase Small (NEG) Urine RBC Occ /HPF (0-2) Urine WBC 5-10 /HPF (0-4) Urine Squamous Epithelial Cells Few /LPF Urine Renal Epithelial Cells Few /LPF Urine Bacteria Many /HPF (0-FEW) Urine Mucus Marked /LPF Glucose (Fingerstick) 87 mg/dL (70-99) Test 02/24/19 23:10 02/25/19 04:20 02/25/19 07:20 Lactic Acid Level 0.6 mmol/L (0.4-2.0) White Blood Count 8.1 x10^3/uL (4.0-11.0) Red Blood Count 4.13 x10^6/uL (3.50-5.40) Hemoglobin 12.2 g/dL (12.0-15.5) Hematocrit 36.0 % (36.0-47.0) Mean Corpuscular Volume 87 fL (79-100) Mean Corpuscular Hemoglobin 30 pg (25-35) Mean Corpuscular Hemoglobin Concent 34 g/dL (31-37) Red Cell Distribution Width 14.0 % (11.5-14.5) Platelet Count 244 x10^3/uL (140-400) Neutrophils (%) (Auto) 55 % (31-73) Lymphocytes (%) (Auto) 38 % (24-48) Monocytes (%) (Auto) 7 % (0-9) Eosinophils (%) (Auto) 1 % (0-3) Basophils (%) (Auto) 1 % (0-3) Neutrophils # (Auto) 4.5 x10^3/uL (1.8-7.7) Lymphocytes # (Auto) 3.1 x10^3/uL (1.0-4.8) Monocytes # (Auto) 0.5 x10^3/uL (0.0-1.1) Eosinophils # (Auto) 0.0 x10^3/uL (0.0-0.7) Basophils # (Auto) 0.0 x10^3/uL (0.0-0.2) Sodium Level 141 mmol/L (136-145) Potassium Level 3.3 mmol/L (3.5-5.1) Chloride Level 106 mmol/L (98-107) Carbon Dioxide Level 27 mmol/L (21-32) Anion Gap 8 (6-14) Blood Urea Nitrogen 7 mg/dL (7-20) Creatinine 0.5 mg/dL (0.6-1.0) Estimated GFR (Cockcroft-Gault) 125.9 BUN/Creatinine Ratio 14 (6-20) Glucose Level 92 mg/dL (70-99) Calcium Level 9.2 mg/dL (8.5-10.1) Total Bilirubin 0.4 mg/dL (0.2-1.0) Aspartate Amino Transf (AST/SGOT) 14 U/L (15-37) Alanine Aminotransferase (ALT/SGPT) 14 U/L (14-59) Alkaline Phosphatase 87 U/L (46-116) Total Protein 6.3 g/dL (6.4-8.2) Albumin 3.3 g/dL (3.4-5.0) Albumin/Globulin Ratio 1.1 (1.0-1.7) Glucose (Fingerstick) 82 mg/dL (70-99) Laboratory Tests Test 02/24/19 11:04 02/24/19 13:50 02/24/19 21:05 02/24/19 23:10 Urine Collection Type U cath Urine Color Yellow Urine Clarity Clear Urine pH 5.0 Urine Specific [place] 1.020 Urine Protein 30 mg/dL (NEG-TRACE) Urine Glucose (UA) Negative mg/dL (NEG) Urine Ketones (Stick) Negative mg/dL (NEG) Urine Blood Negative (NEG) Urine Nitrite Negative (NEG) Urine Bilirubin Negative (NEG) Urine Urobilinogen Dipstick 0.2 mg/dL (0.2 mg/dL) Urine Leukocyte Esterase Small (NEG) Urine RBC Occ /HPF (0-2) Urine WBC 5-10 /HPF (0-4) Urine Squamous Epithelial Cells Few /LPF Urine Renal Epithelial Cells Few /LPF Urine Bacteria Many /HPF (0-FEW) Urine Mucus Marked /LPF Lactic Acid Level 9.4 mmol/L (0.4-2.0) 0.6 mmol/L (0.4-2.0) Glucose (Fingerstick) 87 mg/dL (70-99) Test 02/25/19 04:20 02/25/19 07:20 White Blood Count 8.1 x10^3/uL (4.0-11.0) Red Blood Count 4.13 x10^6/uL (3.50-5.40) Hemoglobin 12.2 g/dL (12.0-15.5) Hematocrit 36.0 % (36.0-47.0) Mean Corpuscular Volume 87 fL (79-100) Mean Corpuscular Hemoglobin 30 pg (25-35) Mean Corpuscular Hemoglobin Concent 34 g/dL (31-37) Red Cell Distribution Width 14.0 % (11.5-14.5) Platelet Count 244 x10^3/uL (140-400) Neutrophils (%) (Auto) 55 % (31-73) Lymphocytes (%) (Auto) 38 % (24-48) Monocytes (%) (Auto) 7 % (0-9) Eosinophils (%) (Auto) 1 % (0-3) Basophils (%) (Auto) 1 % (0-3) Neutrophils # (Auto) 4.5 x10^3/uL (1.8-7.7) Lymphocytes # (Auto) 3.1 x10^3/uL (1.0-4.8) Monocytes # (Auto) 0.5 x10^3/uL (0.0-1.1) Eosinophils # (Auto) 0.0 x10^3/uL (0.0-0.7) Basophils # (Auto) 0.0 x10^3/uL (0.0-0.2) Sodium Level 141 mmol/L (136-145) Potassium Level 3.3 mmol/L (3.5-5.1) Chloride Level 106 mmol/L (98-107) Carbon Dioxide Level 27 mmol/L (21-32) Anion Gap 8 (6-14) Blood Urea Nitrogen 7 mg/dL (7-20) Creatinine 0.5 mg/dL (0.6-1.0) Estimated GFR (Cockcroft-Gault) 125.9 BUN/Creatinine Ratio 14 (6-20) Glucose Level 92 mg/dL (70-99) Calcium Level 9.2 mg/dL (8.5-10.1) Total Bilirubin 0.4 mg/dL (0.2-1.0) Aspartate Amino Transf (AST/SGOT) 14 U/L (15-37) Alanine Aminotransferase (ALT/SGPT) 14 U/L (14-59) Alkaline Phosphatase 87 U/L (46-116) Total Protein 6.3 g/dL (6.4-8.2) Albumin 3.3 g/dL (3.4-5.0) Albumin/Globulin Ratio 1.1 (1.0-1.7) Glucose (Fingerstick) 82 mg/dL (70-99) Medications Current Medications Sodium Chloride 1,000 ml @ 1,000 mls/hr 1X ONCE IV Last administered on 02/24/19at 11:10; Start 02/24/19 at 10:45; Stop 02/24/19 at 11:44; Status DC Sodium Chloride 1,000 ml @ 1,000 mls/hr 1X ONCE IV ; Start 02/24/19 at 10:45; Stop 02/24/19 at 11:44; Status Cancel Ondansetron HCl (Zofran) 4 mg PRN Q8HRS PRN IV NAUSEA/VOMITING; Start 02/24/19 at 11:45; Stop 02/25/19 at 11:44 Lorazepam (Ativan Inj) 4 mg PRN Q4HRS PRN IV seizure Last administered on 02/24/19at 14:45; Start 02/24/19 at 14:00 Levetiracetam (Keppra) 500 mg BID PO Last administered on 02/25/19at 10:07; Start 02/24/19 at 21:00 Aspirin (Winnie Aspirin) 325 mg DAILYWBKFT PO Last administered on 02/25/19 10:07; Start 02/25/19 at 08:00 Sodium Chloride 1,000 ml @ 100 mls/hr 1X ONCE IV Last administered on 02/24/19 17:00; Start 02/24/19 at 16:30; Stop 02/25/19 at 02:29; Status DC Enoxaparin Sodium (Lovenox Per Pharmacy Prophylaxis Dosing) 1 each PRN DAILY PRN MC SEE COMMENTS; Start 02/24/19 at 16:30 Aspirin (Children'S Aspirin) 81 mg DAILY PO ; Start 02/25/19 at 09:00; Status UNV Atorvastatin Calcium (Lipitor) 40 mg QHS PO Last administered on 02/24/19at 20:38; Start 02/24/19 at 21:00 Bupropion HCl (Wellbutrin) 75 mg BID PO Last administered on 02/25/19 10:07; Start 02/24/19 at 21:00 Donepezil HCl (Aricept) 10 mg HS PO Last administered on 02/24/19at 20:38; Start 02/24/19 at 21:00 Folic Acid (Folic Acid) 1 mg DAILY PO Last administered on 02/25/19 10:07; Start 02/25/19 at 09:00 Metformin HCl (Glucophage) 500 mg BIDWMEALS PO ; Start 02/24/19 at 17:30 Thiamine Mononitrate (Vitamin B-1) 100 mg DAILY PO Last administered on 02/25/19 10:07; Start 02/25/19 at 09:00 Tramadol HCl (Ultram) 50 mg PRN Q6HRS PRN PO PAIN; Start 02/24/19 at 16:30 Artificial Tears (Artificial Tears) 1 drop PRN Q15MIN PRN OU DRY EYE; Start 02/24/19 at 17:15 Cetirizine HCl (ZyrTEC) 10 mg DAILY PO Last administered on 02/25/19 10:07; Start 02/25/19 at 09:00 Multivitamins (Thera M Plus) 1 tab DAILY PO Last administered on 02/25/19 10:07; Start 02/25/19 at 09:00 Sertraline HCl (Zoloft) 150 mg DAILY PO Last administered on 02/25/19at 10:07; Start 02/25/19 at 09:00 Enoxaparin Sodium (Lovenox 40mg Syringe) 40 mg DAILY SQ Last administered on 02/25/19at 10:07; Start 02/25/19 at 09:00 Active Scripts Active Reported Tramadol Hcl 50 Mg Tablet 50 Mg PO Q6HRS PRN Vitamin B-1 (Thiamine Mononitrate) 100 Mg Tablet 100 Mg PO DAILY Zoloft (Sertraline Hcl) 100 Mg Tablet 150 Mg PO DAILY Metformin Hcl 500 Mg Tablet 500 Mg PO BIDWMEALS Loratadine 10 Mg Tablet 1 Tab PO DAILY Folic Acid 1 Mg Tablet 1 Tab PO DAILY Donepezil Hcl 10 Mg Tablet 10 Mg PO HS A Thru Z Advanced Formula Tab (Multivitamin W-Minerals/Lutein) 1 Each Tablet 1 Each PO DAILY Artificial Tears Eye Drops (Dextran 70/Hypromellose) 15 Ml Drops 1 Drop EACHEYE QID PRN Aspirin 81 Mg Tab.chew 1 Tab PO DAILY Atorvastatin Calcium 40 Mg Tablet 1 Tab PO DAILY Wellbutrin (Bupropion Hcl) 75 Mg Tablet 1 Tab PO BID Vitals/I & O Vital Sign - Last 24 Hours 02/24/19 02/24/19 02/24/19 02/24/19 11:06 11:36 12:36 15:22 Temp 98.9 98.9 Pulse 86 83 78 94 Resp 16 23 18 16 B/P (MAP) 154/72 (99) Pulse Ox 96 97 98 94 O2 Delivery Room Air 02/24/19 02/24/19 02/24/19 02/24/19 16:21 19:20 19:55 23:20 Temp 99.3 99.0 99.3 99.0 Pulse 112 97 Resp 18 17 B/P (MAP) 147/75 (99) 150/70 (96) Pulse Ox 95 95 O2 Delivery Room Air Room Air Room Air Room Air 02/25/19 02/25/19 02/25/19 03:20 07:00 10:13 Temp 98.5 97.6 98.5 97.6 Pulse 74 78 Resp 18 17 B/P (MAP) 130/66 (87) 109/52 (71) Pulse Ox 95 93 O2 Delivery Room Air Room Air Room Air Intake and Output 02/24/19 02/24/1919 14:59 22:59 06:59 Intake Total 1000 ml 0 ml 1000 ml Balance 1000 ml 0 ml [address] Head without IV contrast CLINICAL HISTORY: New onset seizure, history of stroke COMPARISON: CT head 10/30/2010. TECHNIQUE: Routine CT of the head without contrast. Soft tissues and bone windows were reviewed. PQRS compliance statement - One or more of the following individualized dose reduction techniques were utilized for this study: 1. Automated exposure control 2. Adjustment of the mA and/or kV according to patient size 3. Use of iterative reconstruction technique FINDINGS: Chronic encephalomalacia of a large segment of the left frontal, parietal and temporal regions from old infarct. Associated chronic appearing calcifications are seen. Ex vacuo dilatation of the left lateral ventricle. Olivares-white differentiation is otherwise maintained with no evidence of edema. Subcortical, periventricular and deep white matter hypoattenuation may be seen with chronic small vessel disease. There is no mass effect or shift of the intracranial structures. The ventricles and cerebral sulci are prominent for the patients stated age consistent with generalized cerebral volume loss. The cerebellum and brainstem are unremarkable. The calvarium demonstrates no evidence of fracture or focal lesion. There is normal aeration of the visualized paranasal sinuses and mastoid air cells. The visualized portions of the orbits are normal. IMPRESSION: 1. No evidence for acute intracranial abnormality. 2. Chronic encephalomalacia likely from old infarct involving large portions of the frontal, parietal and temporal regions. NATALI JOHNSON MD Feb 25, 2019 10:49
--- NOTE | 2019-02-25 11:04 | NUR ---
SS following for discharge planning. SS reviewed pt chart. Pt is from home with spouse and is currently on room air. No discharge needs noted at this time. SS will continue to follow for discharge planning.
--- NOTE | 2019-02-25 11:10 | EEG ---
DATE OF SERVICE: 02/25/2019 PROCEDURE: Electroencephalogram. EEG NUMBER: [id number]. OBJECTIVE: The patient is a 59-year-old female who had a left hemispheric stroke a year ago and had new onset of seizures x 2, yesterday. DESCRIPTION: This is a digital study. Electrodes are placed according to the international 10-20 system. Bipolar and referential montages are available. Activation procedures typically include hyperventilation and intermittent photic stimulation. INTERPRETATION: The background activity consists of 8-9 Hz, 50-100 microvolt activity with slowing of background noted over the left hemispheric leads. Stage 1 sleep is achieved with normal electroencephalogram patterns. Hyperventilation is not performed. Intermittent photic stimulation is noncontributory. IMPRESSION: This electroencephalogram with the patient awake and asleep is within normal limits. There is no focal, paroxysmal, or epileptiform activity. Thank you for letting us help with the patient's care. NATALI JOHNSON MD DR: PILI/coni JOB#: [id number] / [id number] GHANSHYAM Trevizo MD
--- NOTE | 2019-02-25 12:20 | NUR ---
As of this morning patient had not eaten any food in roughly 24 hours due to being admitted yesterday/sleeping and then this morning she went to do an EEG during breakfast. She ate one mckenna cracker upon arrival back to the unit this morning post EEG and grimaced at other food offerings. Metformin held due to BS 82 and patient not eating in 24 hours. Afternoon BS 114 and patient is eating lunch at this time. Will continue to monitor.
--- NOTE | 2019-02-25 14:14 | PDOC ---
[facility] PROGRESS NOTE Chief Complaint Chief Complaint Seizure History of Present Illness History of Present Illness 02/25/19 Pt seen and examined Resting in bed comfortably and speaking softly Vitals/I&O Vitals/I&O: Vital Signs Date Time Temp Pulse Resp B/P (MAP) Pulse Ox O2 Delivery O2 Flow Rate FiO2 02/25/19 11:00 97.9 74 18 123/64 (83) 96 Room Air 97.9 I & O 02/24/19 02/24/19 02/25/19 14:59 22:59 06:59 Intake Total 1000 ml 0 ml 1000 ml Balance 1000 ml 0 ml 1000 ml Physical Exam General: Other (obtunded, post-ictal) Extremities: No clubbing, Normal pulses Skin: No rashes Labs Labs: Laboratory Tests Test 02/24/19 21:05 02/24/19 23:10 02/25/19 04:20 02/25/19 07:20 Glucose (Fingerstick) 87 mg/dL (70-99) 82 mg/dL (70-99) Lactic Acid Level 0.6 mmol/L (0.4-2.0) White Blood Count 8.1 x10^3/uL (4.0-11.0) Red Blood Count 4.13 x10^6/uL (3.50-5.40) Hemoglobin 12.2 g/dL (12.0-15.5) Hematocrit 36.0 % (36.0-47.0) Mean Corpuscular Volume 87 fL (79-100) Mean Corpuscular Hemoglobin 30 pg (25-35) Mean Corpuscular Hemoglobin Concent 34 g/dL (31-37) Red Cell Distribution Width 14.0 % (11.5-14.5) Platelet Count 244 x10^3/uL (140-400) Neutrophils (%) (Auto) 55 % (31-73) Lymphocytes (%) (Auto) 38 % (24-48) Monocytes (%) (Auto) 7 % (0-9) Eosinophils (%) (Auto) 1 % (0-3) Basophils (%) (Auto) 1 % (0-3) Neutrophils # (Auto) 4.5 x10^3/uL (1.8-7.7) Lymphocytes # (Auto) 3.1 x10^3/uL (1.0-4.8) Monocytes # (Auto) 0.5 x10^3/uL (0.0-1.1) Eosinophils # (Auto) 0.0 x10^3/uL (0.0-0.7) Basophils # (Auto) 0.0 x10^3/uL (0.0-0.2) Sodium Level 141 mmol/L (136-145) Potassium Level 3.3 mmol/L (3.5-5.1) Chloride Level 106 mmol/L (98-107) Carbon Dioxide Level 27 mmol/L (21-32) Anion Gap 8 (6-14) Blood Urea Nitrogen 7 mg/dL (7-20) Creatinine 0.5 mg/dL (0.6-1.0) Estimated GFR (Cockcroft-Gault) 125.9 BUN/Creatinine Ratio 14 (6-20) Glucose Level 92 mg/dL (70-99) Calcium Level 9.2 mg/dL (8.5-10.1) Total Bilirubin 0.4 mg/dL (0.2-1.0) Aspartate Amino Transf (AST/SGOT) 14 U/L (15-37) Alanine Aminotransferase (ALT/SGPT) 14 U/L (14-59) Alkaline Phosphatase 87 U/L (46-116) Total Protein 6.3 g/dL (6.4-8.2) Albumin 3.3 g/dL (3.4-5.0) Albumin/Globulin Ratio 1.1 (1.0-1.7) Test 02/25/19 11:40 Glucose (Fingerstick) 114 mg/dL (70-99) Review of Systems Review of Systems: Denies headache Denies change of vision Assessment and Plan Assessmemt and Plan Problems Medical Problems: (1) Aphasia, mixed Status: Chronic (2) Diabetes mellitus Status: Chronic (3) HLD (hyperlipidemia) Status: Chronic (4) HTN (hypertension) Status: Chronic (5) Major depression Status: Chronic (6) Metabolic encephalopathy Status: Chronic (7) Obesity Status: Chronic (8) Right hemiplegia Status: Chronic (9) Seizure Status: Acute (10) UTI (urinary tract infection) Status: Acute (11) Weakness Status: Acute Seizure x 2 on 02/24/19 new onset, EEG 02/25 shows left hemispheric slowing, no epileptic activity. Metabolic encephalopathy. UTI. 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 Right hemiplegia. Aphasia Plan Ativan 1-2 mg IV PRN q4-6h if has further seizures. Keppra 500 mg IV q12h, or PO if can swallow. Aspirin, statin Seizure precautions. OT/PT. Return to group home any time Comment Review of Relevant I have reviewed the following items kay (where applicable) has been applied. Medications: Current Medications Medications (Trade) Dose Ordered Sig/Alice Route PRN Reason Start Time Stop Time Status Last Admin Dose Admin Levetiracetam (Keppra) 500 mg BID PO 02/24/19 21:00 02/25/19 10:07 Aspirin (Winnie Aspirin) 325 mg DAILYWBKFT PO 02/25/19 08:00 02/25/19 10:07 Sodium Chloride 1,000 ml @ 100 mls/hr 1X ONCE IV 02/24/19 16:30 02/25/19 02:29 DC 02/24/19 17:00 Atorvastatin Calcium (Lipitor) 40 mg QHS PO 02/24/19 21:00 02/24/19 20:38 Bupropion HCl (Wellbutrin) 75 mg BID PO 02/24/19 21:00 02/25/19 10:07 Donepezil HCl (Aricept) 10 mg HS PO 02/24/19 21:00 02/24/19 20:38 Folic Acid (Folic Acid) 1 mg DAILY PO 02/25/19 09:00 02/25/19 10:07 Thiamine Mononitrate (Vitamin B-1) 100 mg DAILY PO 02/25/19 09:00 02/25/19 10:07 Cetirizine HCl (ZyrTEC) 10 mg DAILY PO 02/25/19 09:00 02/25/19 10:07 Multivitamins (Thera M Plus) 1 tab DAILY PO 02/25/19 09:00 02/25/19 10:07 Sertraline HCl (Zoloft) 150 mg DAILY PO 02/25/19 09:00 02/25/19 10:07 Enoxaparin Sodium (Lovenox 40mg Syringe) 40 mg DAILY SQ 02/25/19 09:00 02/25/19 10:07 LAUREN CHRIS III DO Feb 25, 2019 14:13
--- NOTE | 2019-02-25 16:47 | NUR ---
SS following up with discharge planning. SS received notification that pt was a LTC resident from [facility]. SS will continue to follow for discharge planning.
[2019-02-25] MEDS: DONEPEZIL HCL 10 MG TABLET. PO SCH (21:07)
[2019-02-25] MEDS: ATORVASTATIN CALCIUM 40 MG TABLET. PO SCH (21:07)
[2019-02-26 03:48] VITALS: BP 132/58
[2019-02-26 07:00] VITALS: BP 122/64
[2019-02-26] MEDS: THIAMINE 100 MG TABLET. PO SCH (07:45)
[2019-02-26] MEDS: ASPIRIN 325 MG TABLET PO SCH (07:45)
[2019-02-26] MEDS: SERTRALINE 50 MG TABLET. PO SCH (07:45)
[2019-02-26] MEDS: metFORMIN 500 MG TABLET PO SCH (07:45)
[2019-02-26] MEDS: MULTIVITAMIN with MINERAL TABLET. PO SCH (07:45)
[2019-02-26] MEDS: buPROPion 75 MG TABLET. PO SCH (07:45)
[2019-02-26] MEDS: levETIRAcetam 500 MG TABLET PO SCH (07:46)
[2019-02-26] MEDS: FOLIC ACID 1 MG TABLET. PO SCH (07:46)
[2019-02-26] MEDS: ENOXAPARIN 40 MG/0.4 ML SYRINGE. SQ SCH (07:46)
[2019-02-26] MEDS: CETIRIZINE HCL 10 MG TABLET. PO SCH (07:46)
--- NOTE | 2019-02-26 10:16 | PDOC ---
[facility] [facility] PROGRESS NOTE Chief Complaint Chief Complaint Seizure Metabolic encephalopathy. UTI. 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 Right hemiplegia. Aphasia History of Present Illness History of Present Illness 02/26/19 Pt seen and examined Pt appears in NAD and resting comfortably 02/25/19 Pt seen and examined Resting in bed comfortably and speaking softly Vitals/I&O Vitals/I&O: Vital Signs Date Time Temp Pulse Resp B/P (MAP) Pulse Ox O2 Delivery O2 Flow Rate FiO2 02/26/19 07:52 Room Air 02/26/19 07:00 98.2 75 18 122/64 (83) 95 98.2 02/25/19 14:30 3.0 I & O 02/25/19 02/25/19 02/26/19 15:00 23:00 07:00 Intake Total 50 ml 50 ml Balance 50 ml 50 ml Physical Exam General: Other (obtunded, post-ictal) Extremities: No clubbing, Normal pulses Skin: No rashes Labs Labs: Laboratory Tests Test 02/25/19 11:40 02/25/19 16:56 02/25/19 19:25 02/26/19 07:22 Glucose (Fingerstick) 114 mg/dL (70-99) 103 mg/dL (70-99) 88 mg/dL (70-99) 78 mg/dL (70-99) Review of Systems Review of Systems: Pt denies headache Pt denies vision change Assessment and Plan Assessmemt and Plan Problems Medical Problems: (1) Aphasia, mixed Status: Chronic (2) Diabetes mellitus Status: Chronic (3) HLD (hyperlipidemia) Status: Chronic (4) HTN (hypertension) Status: Chronic (5) Major depression Status: Chronic (6) Metabolic encephalopathy Status: Chronic (7) Obesity Status: Chronic (8) Right hemiplegia Status: Chronic (9) Seizure Status: Acute (10) UTI (urinary tract infection) Status: Acute (11) Weakness Status: Acute Assessment: Seizure x 2 on 02/24/19 new onset, EEG 02/25 shows left hemispheric slowing, no epileptic activity. Metabolic encephalopathy. UTI. 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 Right hemiplegia. Aphasia Plan Ativan 1-2 mg IV PRN q4-6h if has further seizures. Keppra 500 mg IV q12h, or PO if can swallow. Aspirin, statin Seizure precautions. OT/PT. Discussed treatment plan with neuro Discharge today with home health Comment Review of Relevant I have reviewed the following items kay (where applicable) has been applied. LAUREN CHRIS III DO Feb 26, 2019 10:16
--- NOTE | 2019-02-26 10:32 | SNU/HH DC ---
DISCHARGE WITH HOME HEALTH DISCHARGE INFORMATION: Final Diagnosis: Problems Medical Problems: (1) Aphasia, mixed Status: Chronic (2) Diabetes mellitus Status: Chronic (3) HLD (hyperlipidemia) Status: Chronic (4) HTN (hypertension) Status: Chronic (5) Major depression Status: Chronic (6) Metabolic encephalopathy Status: Chronic (7) Obesity Status: Chronic (8) Right hemiplegia Status: Chronic (9) Seizure Status: Acute (10) UTI (urinary tract infection) Status: Acute (11) Weakness Status: Acute Condition on Discharge: Stable CODE STATUS: Code Status: Full HOME HEALTH: Face to Face: I certify this patient is under my care and that I, or a nurse practitioner or physician's assistant property manager working with me, had a face to face encounter that meets the physician face to face encounter requirements with this patient on []. Medical Complications: THIERRY RN For Eval/Treatment: Yes Physical Therapy For: Evalulation/Treatment Occupational Therapy For: Evaluation/Treatment Home Health Aide For: Self-care TRAINING SPECIALIST For: Community Resources Pt Meets Homebound Status: Poor coordination w/ amb. POST DISCHARGE ORDERS: DIET AFTER DISCHARGE: Cardiac CERTIFICATION STATEMENT: Certification Statement: Certification Statement: Based on the above finding, I certify that this patient is confined to the home and needs intermittent long term care, physical therapy and/or speech therapy, or continues to need occupational therapy.~ This patient is under my care, and I have initiated the establishment of the plan of care.~ This patient will be followed by myself or a community physician who will periodically review the plan of care. Home Meds Reported Medications Tramadol Hcl (TRAMADOL HCL) 50 Mg Tablet, 50 MG PO Q6HRS PRN for PAIN, TAB 02/24/19 Thiamine Mononitrate (VITAMIN B-1) 100 Mg Tablet, 100 MG PO DAILY, TAB 02/24/19 Sertraline Hcl (ZOLOFT) 100 Mg Tablet, 150 MG PO DAILY for ANTI-DEPRESSANT, TAB 0 Refills 02/24/19 Metformin Hcl (METFORMIN HCL) 500 Mg Tablet, 500 MG PO BIDWMEALS for ANTI- DIABETIC, TAB 0 Refills 02/24/19 Loratadine (LORATADINE) 10 Mg Tablet, 1 TAB PO DAILY, #30 TAB 5 Refills 02/24/19 Folic Acid (FOLIC ACID) 1 Mg Tablet, 1 TAB PO DAILY, #90 TAB 1 Refill 02/24/19 Donepezil Hcl (DONEPEZIL HCL) 10 Mg Tablet, 10 MG PO HS, TAB 02/24/19 Multivitamin W-Minerals/Lutein (A THRU Z ADVANCED FORMULA TAB) 1 Each Tablet, 1 EACH PO DAILY, TAB 02/24/19 Dextran 70/Hypromellose (ARTIFICIAL TEARS EYE DROPS) 15 Ml Drops, 1 DROP EACHEYE QID PRN for dry eye, #15 ML 5 Refills 02/24/19 Aspirin (ASPIRIN) 81 Mg Tab.chew, 1 TAB PO DAILY, #30 TAB 3 Refills 02/24/19 Atorvastatin Calcium (ATORVASTATIN CALCIUM) 40 Mg Tablet, 1 TAB PO DAILY, #30 TAB 5 Refills 07/22/14 Bupropion Hcl (WELLBUTRIN) 75 Mg Tablet, 1 TAB PO BID 07/22/14 Discontinued Reported Medications [triamcinolone cream] No Conflict Check 07/22/14 [gentamicin cream] No Conflict Check 07/22/14 [Lantus 30HS ss] No Conflict Check 07/22/14 [pradaxa 75mg BID] No Conflict Check 07/22/14 Bupropion Hcl (WELLBUTRIN) 100 Mg Tablet, 150 MG PO DAILY, TAB 07/22/14 Sitagliptin Phosphate (JANUVIA) 100 Mg Tablet, 1 TAB PO DAILY, #30 TAB 5 Refills 07/22/14 Lisinopril (LISINOPRIL) 40 Mg Tablet, 1 TAB PO DAILY, #30 TAB 5 Refills 07/22/14 Atenolol (ATENOLOL) 25 Mg Tablet, 25 MG PO BID, TAB 07/22/14 Triamcinolone Acetonide (TRIAMCINOLONE ACETONIDE 0.1% OINT) 15 Gm Oint...g., 1 LEEANN TP PRN PRN for RASH, #454 GM 07/22/14 Gentamicin Sulfate (GENTAMICIN SULFATE 0.1% CREAM) 15 Gm Cream..g., 1 LEEANN TP PRN PRN for RASH, #30 GM 1 Refill 07/22/14 Sertraline Hcl (ZOLOFT) 25 Mg Tablet, 1 TAB PO HS, #30 TAB 2 Refills 07/22/14 Insulin Glargine,Hum.rec.anlog (LANTUS SOLOSTAR) 100 Unit/1 Ml Insuln.pen, 30 UNIT SQ QHS, #15 ML 3 Refills 1/13/15 Sitagliptin Phosphate (JANUVIA) 100 Mg Tablet, 1 TAB PO DAILY, #30 TAB 5 Refills 07/22/14 Dabigatran Etexilate Mesylate (PRADAXA) 150 Mg Capsule, 75 MG PO BID, #180 CAP 1 Refill 07/22/14 Atorvastatin Calcium (ATORVASTATIN CALCIUM) 40 Mg Tablet, 1 TAB PO DAILY, #30 TAB 5 Refills 07/22/14 Lisinopril (LISINOPRIL) 40 Mg Tablet, 1 TAB PO DAILY, #30 TAB 5 Refills 07/22/14 Atenolol (ATENOLOL) 25 Mg Tablet, 1 TAB PO BID, #30 TAB 5 Refills 07/22/14 LAUREN CHRIS III DO Feb 26, 2019 10:32
[2019-02-26 11:00] VITALS: BP 111/54
--- NOTE | 2019-02-26 11:12 | DS ---
DATE OF DISCHARGE: 02/26/2019 ADMISSION DIAGNOSIS: Seizure. DISCHARGE DIAGNOSIS: Resolving seizure. CONSULTS: Neurology. PROCEDURES: None. HOSPITAL COURSE: The patient is a pleasant elderly female who presented with acute on chronic seizures. She was admitted. We consulted Dr. Velez. Dr. Velez recommended Keppra 500 b.i.d. and p.r.n. Ativan. Today, I saw the patient, she is doing well. She wants to go home. Her heart tones are normal. Lungs are clear. We plan to discharge with close outpatient followup. DISPOSITION: Home. ACTIVITY: As tolerated. DIET: Low sodium. MEDICATIONS: Please see the MRAD. I resumed her home meds and we put her on Keppra. TOTAL TIME: 34 minutes. LAUREN CHRIS DO DR: PACO/coni JOB#: [id number] / [id number]
--- NOTE | 2019-02-26 12:04 | PDOC ---
PROGRESS NOTES Assessment Problems Medical Problems: (1) Aphasia, mixed Status: Chronic (2) Diabetes mellitus Status: Chronic (3) HLD (hyperlipidemia) Status: Chronic (4) HTN (hypertension) Status: Chronic (5) Major depression Status: Chronic (6) Metabolic encephalopathy Status: Chronic (7) Obesity Status: Chronic (8) Right hemiplegia Status: Chronic (9) Seizure Status: Acute (10) UTI (urinary tract infection) Status: Acute (11) Weakness Status: Acute Seizure x 2 on 02/24/19 new onset, EEG 02/25 shows left hemispheric slowing, no epileptic activity. Metabolic encephalopathy. UTI. 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 Right hemiplegia. Aphasia Plan Keppra 500 mg q12hPO Aspirin, statin Seizure precautions. OT/PT. [facility]. Followup with me 2 months Subjective Indicates no complaints Objective Vital Signs Date Time Temp Pulse Resp B/P (MAP) Pulse Ox O2 Delivery O2 Flow Rate FiO2 02/26/19 11:00 97.5 90 18 111/54 (73) 94 Room Air 97.5 02/25/19 14:30 3.0 Intake and Output 02/26/19 06:59 Intake Total 100 ml Balance 100 ml Intake Oral 100 ml # Voids 5 PHYSICAL EXAM Alert. Nonverbal, expressive and receptive aphasia, but does says "yes," to one question PERRL. EOMI. CN: no focal findings. Muscle tone: spastic on right. Muscle strength: 4/5 left, 1/5 right DTR: 1+ Plantar reflex: flexor on left, silent on right Gait: not examined in bed. Sensory exam: no abnormal findings. No cerebellar signs elicited. Review of Relevant I have reviewed the following items kay (where applicable) has been applied. Labs Laboratory Tests Test 02/24/19 13:50 02/24/19 21:05 02/24/19 23:10 02/25/19 04:20 Lactic Acid Level 9.4 mmol/L (0.4-2.0) 0.6 mmol/L (0.4-2.0) Glucose (Fingerstick) 87 mg/dL (70-99) White Blood Count 8.1 x10^3/uL (4.0-11.0) Red Blood Count 4.13 x10^6/uL (3.50-5.40) Hemoglobin 12.2 g/dL (12.0-15.5) Hematocrit 36.0 % (36.0-47.0) Mean Corpuscular Volume 87 fL (79-100) Mean Corpuscular Hemoglobin 30 pg (25-35) Mean Corpuscular Hemoglobin Concent 34 g/dL (31-37) Red Cell Distribution Width 14.0 % (11.5-14.5) Platelet Count 244 x10^3/uL (140-400) Neutrophils (%) (Auto) 55 % (31-73) Lymphocytes (%) (Auto) 38 % (24-48) Monocytes (%) (Auto) 7 % (0-9) Eosinophils (%) (Auto) 1 % (0-3) Basophils (%) (Auto) 1 % (0-3) Neutrophils # (Auto) 4.5 x10^3/uL (1.8-7.7) Lymphocytes # (Auto) 3.1 x10^3/uL (1.0-4.8) Monocytes # (Auto) 0.5 x10^3/uL (0.0-1.1) Eosinophils # (Auto) 0.0 x10^3/uL (0.0-0.7) Basophils # (Auto) 0.0 x10^3/uL (0.0-0.2) Sodium Level 141 mmol/L (136-145) Potassium Level 3.3 mmol/L (3.5-5.1) Chloride Level 106 mmol/L (98-107) Carbon Dioxide Level 27 mmol/L (21-32) Anion Gap 8 (6-14) Blood Urea Nitrogen 7 mg/dL (7-20) Creatinine 0.5 mg/dL (0.6-1.0) Estimated GFR (Cockcroft-Gault) 125.9 BUN/Creatinine Ratio 14 (6-20) Glucose Level 92 mg/dL (70-99) Calcium Level 9.2 mg/dL (8.5-10.1) Total Bilirubin 0.4 mg/dL (0.2-1.0) Aspartate Amino Transf (AST/SGOT) 14 U/L (15-37) Alanine Aminotransferase (ALT/SGPT) 14 U/L (14-59) Alkaline Phosphatase 87 U/L (46-116) Total Protein 6.3 g/dL (6.4-8.2) Albumin 3.3 g/dL (3.4-5.0) Albumin/Globulin Ratio 1.1 (1.0-1.7) Test 02/25/19 07:20 02/25/19 11:40 02/25/19 16:56 02/25/19 19:25 Glucose (Fingerstick) 82 mg/dL (70-99) 114 mg/dL (70-99) 103 mg/dL (70-99) 88 mg/dL (70-99) Test 02/26/19 07:22 02/26/19 11:36 Glucose (Fingerstick) 78 mg/dL (70-99) 113 mg/dL (70-99) Laboratory Tests Test 02/25/19 16:56 02/25/19 19:25 02/26/19 07:22 02/26/19 11:36 Glucose (Fingerstick) 103 mg/dL (70-99) 88 mg/dL (70-99) 78 mg/dL (70-99) 113 mg/dL (70-99) Medications Current Medications Sodium Chloride 1,000 ml @ 1,000 mls/hr 1X ONCE IV Last administered on 02/24/19 11:10; Start 02/24/19 at 10:45; Stop 02/24/19 at 11:44; Status DC Sodium Chloride 1,000 ml @ 1,000 mls/hr 1X ONCE IV ; Start 02/24/19 at 10:45; Stop 02/24/19 at 11:44; Status Cancel Ondansetron HCl (Zofran) 4 mg PRN Q8HRS PRN IV NAUSEA/VOMITING; Start 02/24/19 at 11:45; Stop 02/25/19 at 11:44; Status DC Lorazepam (Ativan Inj) 4 mg PRN Q4HRS PRN IV seizure Last administered on 02/24/19at 14:45; Start 02/24/19 at 14:00 Levetiracetam (Keppra) 500 mg BID PO Last administered on 02/26/19 07:46; Start 02/24/19 at 21:00 Aspirin (Winnie Aspirin) 325 mg DAILYWBKFT PO Last administered on 02/26/19 07:46; Start 02/25/19 at 08:00 Sodium Chloride 1,000 ml @ 100 mls/hr 1X ONCE IV Last administered on 02/24/19 17:00; Start 02/24/19 at 16:30; Stop 02/25/19 at 02:29; Status DC Enoxaparin Sodium (Lovenox Per Pharmacy Prophylaxis Dosing) 1 each PRN DAILY PRN MC SEE COMMENTS; Start 02/24/19 at 16:30; Stop 02/25/19 at 13:16; Status DC Aspirin (Children'S Aspirin) 81 mg DAILY PO ; Start 02/25/19 at 09:00; Status UNV Atorvastatin Calcium (Lipitor) 40 mg QHS PO Last administered on 02/25/19 21:08; Start 02/24/19 at 21:00 Bupropion HCl (Wellbutrin) 75 mg BID PO Last administered on 02/26/19 07:46; Start 02/24/19 at 21:00 Donepezil HCl (Aricept) 10 mg HS PO Last administered on 02/25/19at 21:08; Start 02/24/19 at 21:00 Folic Acid (Folic Acid) 1 mg DAILY PO Last administered on 02/26/19 07:46; Start 02/25/19 at 09:00 Metformin HCl (Glucophage) 500 mg BIDWMEALS PO Last administered on 02/26/19 07:46; Start 02/24/19 at 17:30 Thiamine Mononitrate (Vitamin B-1) 100 mg DAILY PO Last administered on 02/26/19 07:46; Start 02/25/19 at 09:00 Tramadol HCl (Ultram) 50 mg PRN Q6HRS PRN PO PAIN; Start 02/24/19 at 16:30 Artificial Tears (Artificial Tears) 1 drop PRN Q15MIN PRN OU DRY EYE; Start at 17:15 Cetirizine HCl (ZyrTEC) 10 mg DAILY PO Last administered on 02/26/19 07:46; Start 02/25/19 at 09:00 Multivitamins (Thera M Plus) 1 tab DAILY PO Last administered on 02/26/19 07:46; Start 02/25/19 at 09:00 Sertraline HCl (Zoloft) 150 mg DAILY PO Last administered on 8/20/19at 07:46; Start 02/25/19 at 09:00 Enoxaparin Sodium (Lovenox 40mg Syringe) 40 mg DAILY SQ Last administered on 02/26/19at 07:46; Start 02/25/19 at 09:00 Active Scripts Active Reported Tramadol Hcl 50 Mg Tablet 50 Mg PO Q6HRS PRN Vitamin B-1 (Thiamine Mononitrate) 100 Mg Tablet 100 Mg PO DAILY Zoloft (Sertraline Hcl) 100 Mg Tablet 150 Mg PO DAILY Metformin Hcl 500 Mg Tablet 500 Mg PO BIDWMEALS Loratadine 10 Mg Tablet 1 Tab PO DAILY Folic Acid 1 Mg Tablet 1 Tab PO DAILY Donepezil Hcl 10 Mg Tablet 10 Mg PO HS A Thru Z Advanced Formula Tab (Multivitamin W-Minerals/Lutein) 1 Each Tablet 1 Each PO DAILY Artificial Tears Eye Drops (Dextran 70/Hypromellose) 15 Ml Drops 1 Drop EACHEYE QID PRN Aspirin 81 Mg Tab.chew 1 Tab PO DAILY Atorvastatin Calcium 40 Mg Tablet 1 Tab PO DAILY Wellbutrin (Bupropion Hcl) 75 Mg Tablet 1 Tab PO BID Vitals/I & O Vital Sign - Last 24 Hours 02/25/19 02/25/19 02/25/19 02/25/19 14:30 15:00 19:55 19:55 Temp 98.1 98.5 98.1 98.5 Pulse 90 69 72 Resp 17 18 B/P (MAP) 139/95 (110) 114/61 (78) 130/63 (85) Pulse Ox 94 94 93 O2 Delivery Nasal Cannula Room Air Room Air Room Air O2 Flow Rate 3.0 02/25/19 02/26/19 02/26/19 02/26/19 23:30 03:48 07:00 07:52 Temp 98.2 98.4 98.2 98.2 98.4 98.2 Pulse 67 80 75 Resp 18 18 18 B/P (MAP) 155/75 (101) 132/58 (82) 122/64 (83) Pulse Ox 93 95 95 O2 Delivery Room Air Room Air Room Air Room Air 02/26/19 11:00 Temp 97.5 97.5 Pulse 90 Resp 18 B/P (MAP) 111/54 (73) Pulse Ox 94 O2 Delivery Room Air Intake and Output 02/25/19 02/25/19 02/26/19 14:59 22:59 06:59 Intake Total 50 ml 50 ml Balance 50 ml 50 ml NATALI JOHNSON MD Feb 26, 2019 12:04
--- NOTE | 2019-02-26 15:32 | NUR ---
Discharge Note: [facility]OMMY PR[facility] Discharge instructions and discharge home medications reviewed with Valentina at [facility] and a copy given. All questions have been answered and understanding verbalized. The following instructions and handouts were given: transfer of care Discontinued lines and drains: 20 gauge left wrist, tip intact. patient tolerated well. Patient discharged to [facility] via transport.
--- NOTE | 2019-02-26 15:42 | NUR ---
late note: Orders faxed to [place] and pt will transport via facility arranged stretcher at 1500. Packet on chart. RN and pt's notified of plan.
== END 2019-02-26 14:41 | DRG 101 ==
LOC: ER 09:42 → 6 SOUTH 11:42
PROVIDERS: ADMIT Internal Medicine; ATTEND Internal Medicine
DX: R56.9 Unspecified convulsions (principal); N39.0 Urinary tract infection, site not specified; G81.91 Hemiplegia, unspecified affecting right dominant side; R47.01 Aphasia; E11.9 Type 2 diabetes mellitus without complications; E66.9 Obesity, unspecified; E78.00 Pure hypercholesterolemia, unspecified; E78.5 Hyperlipidemia, unspecified; F32.9 Major depressive disorder, single episode, unspecified; I10 Essential (primary) hypertension; I69.398 Other sequelae of cerebral infarction; R29.810 Facial weakness; Z96.659 Presence of unspecified artificial knee joint; G93.89 Other specified disorders of brain; F41.9 Anxiety disorder, unspecified; Z88.2 Allergy status to sulfonamides
CPT/HCPCS: 36415; 70450; 71045; 80053; 81001; 82962; 83605; 84484; 85025; 85610; 85730; 87086; 93005; 95816; J1650; J2060; J7030; 92610; G0378

== ENCOUNTER 2020-03-13 12:37 | Inpatient (IN) | payer OTHER ==
[~2020-03-13] VITALS: Ht 157.5 cm; Wt 90.4 kg
[~2020-03-13 12:37] MED LIST changes: +ASPI-630 PO; +DEXT15DR5 EACHEYE; +DONE10TA7 PO; +FOLI1TAB16 PO; +LORA10TA3 PO; +METF500T16 PO; +MULT-132 PO; +SERT100T PO; +THIA100T22 PO; +TRAM50TA PO
[2020-03-13] MEDS ORDERED: IV NORMAL SALINE 1000ML BAG 1,000 ML IV ONE ×2 (12:45→18:30)
[2020-03-13 13:21] LABS: BASO % 0 % (0-3); EOS % 0 % (0-3); HEMATOCRIT 43.4 % (36.0-47.0); HEMOGLOBIN 14.4 g/dL (12.0-15.5); LYMPH # 1.3 x10^3/uL (1.0-4.8); LYMPH % 8 % (24-48); MEAN CORPUSCULAR HEMOGLOBIN 30 pg (25-35); MEAN CORPUSCULAR HGB CONC 33 g/dL (31-37); MEAN CORPUSCULAR VOLUME 89 fL (79-100); MONO # 0.2 x10^3/uL (0.0-1.1); MONO % 1 % (0-9); NEUT # 15.5 x10^3/uL (1.8-7.7); NEUT % 91 % (31-73); PLATELET COUNT 336 x10^3/uL (140-400); RED BLOOD COUNT 4.87 x10^6/uL (3.50-5.40); WHITE BLOOD COUNT 17.1 x10^3/uL (4.0-11.0)
[2020-03-13 13:30] LABS: PROTHROMBIN TIME PATIENT 14.3 SEC (11.7-14.0)
[2020-03-13 13:38] LABS: CALCIUM 9.2 mg/dL (8.5-10.1); GFR 56.4; POTASSIUM 3.3 mmol/L (3.5-5.1)
[2020-03-13 13:43] LABS: ALBUMIN 4.5 g/dL (3.4-5.0); ALBUMIN/GLOBULIN RATIO 1.3 (1.0-1.7); MAGNESIUM 1.8 mg/dL (1.8-2.4); TOTAL BILIRUBIN 0.3 mg/dL (0.2-1.0); TOTAL PROTEIN 7.9 g/dL (6.4-8.2)
--- NOTE | 2020-03-13 13:44 | RAD ---
CT head without contrast: Reason for examination: Seizure like activity. History of stroke. Comparison is made to previous study dated 02/24/2019. Axial images were obtained through the brain. No contrast was administered. Exposure: One or more of the following individualized dose reduction techniques were utilized for this examination: 1. Automated exposure control 2. Adjustment of the mA and/or kV according to patient size 3. Use of iterative reconstruction technique. Ventricular systems show some asymmetric dilatation of the left ventricular system consistent with some compensatory enlargement due to the large area of encephalomalacia involving the left frontal, parietal and temporal lobes from chronic infarct. There continues to be associated calcification at the infarct site. No midline shift is seen. No new sites of hemorrhage, infarct or masses are seen. No abnormalities of seen at the orbits. There is a lesion probably representing a mucous retention cyst in the right maxillary antrum measuring approximately 2.2 cm in greatest dimension. The remaining paranasal sinuses and mastoid air cells are clear. No acute skull abnormality is seen. IMPRESSION: No acute intracranial abnormality seen. Chronic infarcts in the left frontal, temporal and parietal lobes with encephalomalacia and some compensatory enlargement of the left lateral ventricular system. Mucous retention cyst in the right maxillary antrum. Electronically signed by: Sigrid Donnelly MD (03/13/2020 1:41 PM) [facility]
[2020-03-13 13:47] LABS: % BANDS 4 % (0-9); % LYMPHS 12 % (24-48); % MONOS 1 % (0-10); % SEGS 83 % (35-66)
[2020-03-13 13:48] LABS: PLT ESTIMATE ADEQUATE (ADEQUATE)
[2020-03-13 13:49] LABS: TOXIC GRANULATION SLIGHT
[2020-03-13 13:54] LABS: BILIRUBIN,URINE NEGATIVE (NEG); CLARITY,URINE CLOUDY; COLOR,URINE YELLOW; NITRITE,URINE NEGATIVE (NEG); PROTEIN,URINE >=300 mg/dL (NEG-TRACE); UROBILINOGEN,URINE 0.2 mg/dL (0.2 mg/dL)
[2020-03-13 13:59] LABS: SQUAMOUS EPITHELIAL CELL,UR MANY /LPF
[2020-03-13 14:00] LABS: BACTERIA,URINE MODERATE /HPF (0-FEW)
[2020-03-13 14:02] LABS: RBC,URINE OCC /HPF (0-2); WBC,URINE RARE /HPF (0-4)
--- NOTE | 2020-03-13 14:05 | PDOC1 ---
History and Physical Date of Admission Date of Admission DATE: 03/13/20 TIME: 14:05 Identification/Chief Complaint Chief Complaint Seizures Source Source: Caregiver, Chart review History of Present Illness History of Present Illness Ms Griffin is a 59 yo F retirement SNF resident w/ PMHx CVA, Diabetes-Type II, High Cholesterol, Hypertension brought to the ER of [facility] due to a seizure witnessed at SNF 0[facility]. She presented to ED approximately 4 hours after having a witnessed seizure at her SNF. Notably confused with new left-sided facial droop and left sided weakness. At baseline has right sided weakness from a large left MCA territory infarct in 09/2017, and is basically non-verbal, but does normally follow most commands and visual prompting. Per EMS the patient is confused and not able to follow commands, which is not her baseline. She is not able to use her left side. EKG sinus tachycardia, no ST segment changes or T wave inversions. Labs significant for WBC 17, Hb 14.4, platelets 336, INR 1.2, troponin 0 0.145, NA 138, K3.3, BUN 13, CR 1, glucose 288, Mg 1.8. Lactate 3.9. CT head negative for acute infarct, Chronic infarcts in the left frontal, temporal and parietal lobes with encephalomalacia and some compensatory enlargement of the left lateral ventricular system On repeat evaluation after 30 minutes she is moving her left side and occasionally answers "yeah" to questions. Past Medical History Cardiovascular: HTN CENTRAL NERVOUS SYSTEM: CVA Psych: Anxiety, Depression Past Surgical History Past Surgical History: No pertinent history Family History Family History: Family History Unknown Social History Smoke: No ALCOHOL: none Drugs: None Current Medications Current Medications Current Medications Sodium Chloride 1,000 ml @ 1,000 mls/hr 1X ONCE IV Last administered on 03/13/20at 13:30; Start 03/13/20 at 12:45; Stop 03/13/20 at 13:44; Status DC Lorazepam (Ativan Inj) 0.5 mg 1X ONCE IVP Last administered on 03/13/20at 13:20; Start 03/13/20 at 13:00; Stop 03/13/20 at 13:01; Status DC Aspirin (Aspirin Rectal Supp) 300 mg 1X ONCE NH ; Start 03/13/20 at 14:15; Stop 03/13/20 at 14:16; Status UNV Labetalol HCl (Normodyne Iv Push) 20 mg 1X ONCE IVP ; Start 03/13/20 at 14:15; Stop 03/13/20 at 14:16; Status UNV Active Scripts Active Reported Tramadol Hcl 50 Mg Tablet 50 Mg PO Q6HRS PRN Vitamin B-1 (Thiamine Mononitrate) 100 Mg Tablet 100 Mg PO DAILY Zoloft (Sertraline Hcl) 100 Mg Tablet 150 Mg PO DAILY Metformin Hcl 500 Mg Tablet 500 Mg PO BIDWMEALS Loratadine 10 Mg Tablet 1 Tab PO DAILY Folic Acid 1 Mg Tablet 1 Tab PO DAILY Donepezil Hcl 10 Mg Tablet 10 Mg PO HS A Thru Z Advanced Formula Tab (Multivitamin W-Minerals/Lutein) 1 Each Tablet 1 Each PO DAILY Artificial Tears Eye Drops (Dextran 70/Hypromellose) 15 Ml Drops 1 Drop EACHEYE QID PRN Aspirin 81 Mg Tab.chew 1 Tab PO DAILY Atorvastatin Calcium 40 Mg Tablet 1 Tab PO DAILY Wellbutrin (Bupropion Hcl) 75 Mg Tablet 1 Tab PO BID Allergies Allergies: Coded Allergies: Sulfa (Sulfonamide Antibiotics) (Verified Allergy, Severe, Anaphylaxis, 07/22/14) ROS Review of System Unable to obtain due to patient nonverbal status. Physical Exam General: Alert, Cooperative, No acute distress HEENT: Atraumatic, PERRLA, EOMI, Mucous membr. moist/pink Lungs: Clear to auscultation, Normal air movement Heart: S1S2, RRR, no thrills, no rubs, murmurs (4/6 ONIEL) Abdomen: Normal bowel sounds, Soft, No tenderness, No hepatosplenomegaly, No masses Rectal Exam: not examined Extremities: No clubbing, No cyanosis, No edema, Normal pulses, No tendern ess/swelling Skin: No rashes, No breakdown, No significant lesion Neuro: Other (Right dense hemiparesis and right facial droop) Psych/Mental Status: Other (Non-verbal except for saying yes) Vitals Vitals Vital Signs Date Time Temp Pulse Resp B/P (MAP) Pulse Ox O2 Delivery O2 Flow Rate FiO2 03/13/20 12:47 98.9 128 22 217/103 (141) 89 Room Air 98.9 Labs Labs Laboratory Tests Test 03/13/20 13:12 03/13/20 13:40 White Blood Count 17.1 x10^3/uL (4.0-11.0) Red Blood Count 4.87 x10^6/uL (3.50-5.40) Hemoglobin 14.4 g/dL (12.0-15.5) Hematocrit 43.4 % (36.0-47.0) Mean Corpuscular Volume 89 fL (79-100) Mean Corpuscular Hemoglobin 30 pg (25-35) Mean Corpuscular Hemoglobin Concent 33 g/dL (31-37) Red Cell Distribution Width 15.0 % (11.5-14.5) Platelet Count 336 x10^3/uL (140-400) Neutrophils (%) (Auto) 91 % (31-73) Lymphocytes (%) (Auto) 8 % (24-48) Monocytes (%) (Auto) 1 % (0-9) Eosinophils (%) (Auto) 0 % (0-3) Basophils (%) (Auto) 0 % (0-3) Neutrophils # (Auto) 15.5 x10^3/uL (1.8-7.7) Lymphocytes # (Auto) 1.3 x10^3/uL (1.0-4.8) Monocytes # (Auto) 0.2 x10^3/uL (0.0-1.1) Eosinophils # (Auto) 0.0 x10^3/uL (0.0-0.7) Basophils # (Auto) 0.0 x10^3/uL (0.0-0.2) Segmented Neutrophils % 83 % (35-66) Band Neutrophils % 4 % (0-9) Lymphocytes % 12 % (24-48) Monocytes % 1 % (0-10) Toxic Granulation Slight Platelet Estimate Adequate (ADEQUATE) Prothrombin Time 14.3 SEC (11.7-14.0) Prothromb Time International Ratio 1.2 (0.8-1.1) Activated Partial Thromboplast Time 36 SEC (24-38) Sodium Level 138 mmol/L (136-145) Potassium Level 3.3 mmol/L (3.5-5.1) Chloride Level 102 mmol/L (98-107) Carbon Dioxide Level 25 mmol/L (21-32) Anion Gap 11 (6-14) Blood Urea Nitrogen 13 mg/dL (7-20) Creatinine 1.0 mg/dL (0.6-1.0) Estimated GFR (Cockcroft-Gault) 56.4 BUN/Creatinine Ratio 13 (6-20) Glucose Level 288 mg/dL (70-99) Calcium Level 9.2 mg/dL (8.5-10.1) Magnesium Level 1.8 mg/dL (1.8-2.4) Total Bilirubin 0.3 mg/dL (0.2-1.0) Aspartate Amino Transf (AST/SGOT) 17 U/L (15-37) Alanine Aminotransferase (ALT/SGPT) 19 U/L (14-59) Alkaline Phosphatase 101 U/L (46-116) Creatine Kinase 103 U/L (26-192) Creatine Kinase MB (Mass) 1.7 ng/mL (0.0-3.6) Creatine Kinase MB Relative Index 1.7 % (0-4) Troponin I Quantitative 0.145 ng/mL (0.000-0.055) Total Protein 7.9 g/dL (6.4-8.2) Albumin 4.5 g/dL (3.4-5.0) Albumin/Globulin Ratio 1.3 (1.0-1.7) Urine Collection Type U cath Urine Color Yellow Urine Clarity Cloudy Urine pH 5.0 (<5.0-8.0) Urine Specific [place] >=1.030 (1.000-1.030) Urine Protein >=300 mg/dL (NEG-TRACE) Urine Glucose (UA) >=1000 mg/dL (NEG) Urine Ketones (Stick) 15 mg/dL (NEG) Urine Blood Small (NEG) Urine Nitrite Negative (NEG) Urine Bilirubin Negative (NEG) Urine Urobilinogen Dipstick 0.2 mg/dL (0.2 mg/dL) Urine Leukocyte Esterase Negative (NEG) Urine RBC Occ /HPF (0-2) Urine WBC Rare /HPF (0-4) Urine Squamous Epithelial Cells Many /LPF Urine Bacteria Moderate /HPF (0-FEW) Laboratory Tests Test 03/13/20 13:12 03/13/20 13:40 White Blood Count 17.1 x10^3/uL (4.0-11.0) Red Blood Count 4.87 x10^6/uL (3.50-5.40) Hemoglobin 14.4 g/dL (12.0-15.5) Hematocrit 43.4 % (36.0-47.0) Mean Corpuscular Volume 89 fL (79-100) Mean Corpuscular Hemoglobin 30 pg (25-35) Mean Corpuscular Hemoglobin Concent 33 g/dL (31-37) Red Cell Distribution Width 15.0 % (11.5-14.5) Platelet Count 336 x10^3/uL (140-400) Neutrophils (%) (Auto) 91 % (31-73) Lymphocytes (%) (Auto) 8 % (24-48) Monocytes (%) (Auto) 1 % (0-9) Eosinophils (%) (Auto) 0 % (0-3) Basophils (%) (Auto) 0 % (0-3) Neutrophils # (Auto) 15.5 x10^3/uL (1.8-7.7) Lymphocytes # (Auto) 1.3 x10^3/uL (1.0-4.8) Monocytes # (Auto) 0.2 x10^3/uL (0.0-1.1) Eosinophils # (Auto) 0.0 x10^3/uL (0.0-0.7) Basophils # (Auto) 0.0 x10^3/uL (0.0-0.2) Segmented Neutrophils % 83 % (35-66) Band Neutrophils % 4 % (0-9) Lymphocytes % 12 % (24-48) Monocytes % 1 % (0-10) Toxic Granulation Slight Platelet Estimate Adequate (ADEQUATE) Prothrombin Time 14.3 SEC (11.7-14.0) Prothromb Time International Ratio 1.2 (0.8-1.1) Activated Partial Thromboplast Time 36 SEC (24-38) Sodium Level 138 mmol/L (136-145) Potassium Level 3.3 mmol/L (3.5-5.1) Chloride Level 102 mmol/L (98-107) Carbon Dioxide Level 25 mmol/L (21-32) Anion Gap 11 (6-14) Blood Urea Nitrogen 13 mg/dL (7-20) Creatinine 1.0 mg/dL (0.6-1.0) Estimated GFR (Cockcroft-Gault) 56.4 BUN/Creatinine Ratio 13 (6-20) Glucose Level 288 mg/dL (70-99) Calcium Level 9.2 mg/dL (8.5-10.1) Magnesium Level 1.8 mg/dL (1.8-2.4) Total Bilirubin 0.3 mg/dL (0.2-1.0) Aspartate Amino Transf (AST/SGOT) 17 U/L (15-37) Alanine Aminotransferase (ALT/SGPT) 19 U/L (14-59) Alkaline Phosphatase 101 U/L (46-116) Creatine Kinase 103 U/L (26-192) Creatine Kinase MB (Mass) 1.7 ng/mL (0.0-3.6) Creatine Kinase MB Relative Index 1.7 % (0-4) Troponin I Quantitative 0.145 ng/mL (0.000-0.055) Total Protein 7.9 g/dL (6.4-8.2) Albumin 4.5 g/dL (3.4-5.0) Albumin/Globulin Ratio 1.3 (1.0-1.7) Urine Collection Type U cath Urine Color Yellow Urine Clarity Cloudy Urine pH 5.0 (<5.0-8.0) Urine Specific [place] >=1.030 (1.000-1.030) Urine Protein >=300 mg/dL (NEG-TRACE) Urine Glucose (UA) >=1000 mg/dL (NEG) Urine Ketones (Stick) 15 mg/dL (NEG) Urine Blood Small (NEG) Urine Nitrite Negative (NEG) Urine Bilirubin Negative (NEG) Urine Urobilinogen Dipstick 0.2 mg/dL (0.2 mg/dL) Urine Leukocyte Esterase Negative (NEG) Urine RBC Occ /HPF (0-2) Urine WBC Rare /HPF (0-4) Urine Squamous Epithelial Cells Many /LPF Urine Bacteria Moderate /HPF (0-FEW) Images Images CT head: Ventricular systems show some asymmetric dilatation of the left ventricular system consistent with some compensatory enlargement due to the large area of encephalomalacia involving the left frontal, parietal and temporal lobes from chronic infarct. There continues to be associated calcification at the infarct site. No midline shift is seen. No new sites of hemorrhage, infarct or masses are seen. No abnormalities of seen at the orbits. There is a lesion probably representing a mucous retention cyst in the right maxillary antrum measuring approximately 2.2 cm in greatest dimension. The remaining paranasal sinuses and mastoid air cells are clear. No acute skull abnormality is seen. IMPRESSION: No acute intracranial abnormality seen. Chronic infarcts in the left frontal, temporal and parietal lobes with encephalomalacia and some compensatory enlargement of the left lateral ventricular system. Mucous retention cyst in the right maxillary antrum. VTE Prophylaxis Ordered VTE Prophylaxis Devices: Yes VTE Pharmacological Prophylaxi: Yes Assessment/Plan Assessment/Plan A/P: Seizures - noted twice 2 today. Was previously noted on 02/24/19 which was her initial onset. Ativan 1-2 mg IV PRN q4-6h if has further seizures, Keppra 500 mg IV q12h, or PO if can swallow, seizure precautions, OT/PT. Neurology consulted Metabolic encephalopathy - likely 2/2 seizure, will monitor Elevated troponin - will trend, likely demand ischemia from seizures. 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 Aphasia, mixed - only uses yes and no DM - sliding scale HTN - cont meds HLD - cont statin Obesity - local city driver to see Leukocytosis - likely reactive given seizures, will trend. Will obtain CXR to r/o aspiration pneumonia or pneumonitis. Urine bland. 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
[2020-03-13] MEDS ORDERED: LABETALOL 20 MG/4 ML DISP.SYRIN. IVP ONE (14:15)
[2020-03-13] MEDS ORDERED: ASPIRIN RECTAL 300 MG SUPP. PR ONE (14:15)
--- NOTE | 2020-03-13 14:17 | PHYS DOC ---
Past Medical History Past Medical History: CVA, Dementia, Diabetes-Type II, High Cholesterol, Hypertension Additional Past Medical Histor: PT HAD CVA IN 2009, PATIENT HAS R SIDE DEFECIT FROM CVA Past Medical History Limited secondary to dementia/nonverbal Past Surgical History: Knee Replacement, Other Additional Past Surgical Histo: R. ELBOW Past Surgical History Limited secondary to dementia/nonverbal Smoking Status: Never Smoker Alcohol Use: Occasionally Drug Use: None Social History Limited secondary to dementia/nonverbal General Adult EDM: Chief Complaint: ALTERED MENTAL STATUS HPI: HPI: Patient is a 60 white female who presents approximately 4 hours after having a witnessed seizure. Witnesses at her halfway slowly lowered her to the ground and laid her down. She woke in a postictal state and as she regained consciousness there was concern for possible mild left-sided facial droop. The patient had has a prior stroke which is left her with little control of her right side, and no ability to speak at baseline. Per EMS the patient is not able to follow commands, which is not her baseline. She is not able to use her left side. Per halfway records, patient is currently on Keppra. History of present illness limited secondary to dementia/nonverbal Review of Systems: Review of Systems: Review of systems limited secondary to dementia/nonverbal Current Medications: Current Medications Medications (Trade) Dose Ordered Sig/Alice Start Time Stop Time Status Last Admin Dose Admin Aspirin (Aspirin Rectal Supp) 300 mg 1X ONCE 03/13/20 14:15 03/13/20 14:16 Labetalol HCl (Normodyne Iv Push) 20 mg 1X ONCE 03/13/20 14:15 03/13/20 14:16 Lorazepam (Ativan Inj) 0.5 mg 1X ONCE 03/13/20 13:00 03/13/20 13:01 DC 03/13/20 13:20 0.5 MG Sodium Chloride 1,000 ml @ 1,000 mls/hr 1X ONCE 03/13/20 12:45 03/13/20 13:44 DC 03/13/20 13:30 1,000 MLS/HR Home Meds:, acetaminophen 3252 3 times daily, 81 mg aspirin p.o. daily, buspirone 5 mg 3 times daily, donepezil 10 mg twice daily, folic acid 1 mg twice daily, Keppra 500 mg allergic, retrogram 10 mg twice daily, MiraLAX 17 g p.o. daily, Robitussin 20 mg and 20 mils as needed, tramadol 50 mg 3 times daily as needed, thiamine 100 mg p.o. daily, sertraline 100 mg x 2 p.o. daily Allergies: Allergies: Allergies Coded Allergies Type Severity Reaction Last Updated Verified Sulfa (Sulfonamide Antibiotics) Allergy Severe Anaphylaxis 07/22/14 Yes Physical Exam: PE: Constitutional: Well developed, well nourished, no acute distress, non-toxic appearance HENT: Normocephalic, atraumatic, cranial nerves appear intact however examination is limited due to limited cognitive ability of patient. Eyes: PERRL, EOMI, conjunctiva normal, no discharge Neck: Normal range of motion, no tenderness, supple. No carotid bruit. Lungs & Thorax: Bilateral breath sounds clear to auscultation, no wheezing Heart: Rapid tachycardia approximately 140 bpm 3+/6 systolic murmur heard throughout best heard at right sternal border radiates to carotids. Abdomen: Soft, no tenderness, bowel sounds present in all 4 quadrants. Skin: Warm, dry, no erythema, no rash Extremities: No tenderness, no deformities, no edema. Neurologic: Patient appears to have no spontaneous control over both right right and left upper and lower extremities. Psychologic: Unable to evaluate. Current Patient Data: Labs: Laboratory Tests Test 03/13/20 13:12 03/13/20 13:40 White Blood Count 17.1 x10^3/uL (4.0-11.0) H Red Blood Count 4.87 x10^6/uL (3.50-5.40) Hemoglobin 14.4 g/dL (12.0-15.5) Hematocrit 43.4 % (36.0-47.0) Mean Corpuscular Volume 89 fL (79-100) Mean Corpuscular Hemoglobin 30 pg (25-35) Mean Corpuscular Hemoglobin Concent 33 g/dL (31-37) Red Cell Distribution Width 15.0 % (11.5-14.5) H Platelet Count 336 x10^3/uL (140-400) Neutrophils (%) (Auto) 91 % (31-73) H Lymphocytes (%) (Auto) 8 % (24-48) L Monocytes (%) (Auto) 1 % (0-9) Eosinophils (%) (Auto) 0 % (0-3) Basophils (%) (Auto) 0 % (0-3) Neutrophils # (Auto) 15.5 x10^3/uL (1.8-7.7) H Lymphocytes # (Auto) 1.3 x10^3/uL (1.0-4.8) Monocytes # (Auto) 0.2 x10^3/uL (0.0-1.1) Eosinophils # (Auto) 0.0 x10^3/uL (0.0-0.7) Basophils # (Auto) 0.0 x10^3/uL (0.0-0.2) Segmented Neutrophils % 83 % (35-66) H Band Neutrophils % 4 % (0-9) Lymphocytes % 12 % (24-48) L Monocytes % 1 % (0-10) Toxic Granulation Slight Platelet Estimate Adequate (ADEQUATE) Prothrombin Time 14.3 SEC (11.7-14.0) H Prothrombin Time INR 1.2 (0.8-1.1) H Activated Partial Thromboplast Time 36 SEC (24-38) Sodium Level 138 mmol/L (136-145) Potassium Level 3.3 mmol/L (3.5-5.1) L Chloride Level 102 mmol/L (98-107) Carbon Dioxide Level 25 mmol/L (21-32) Anion Gap 11 (6-14) Blood Urea Nitrogen 13 mg/dL (7-20) Creatinine 1.0 mg/dL (0.6-1.0) Estimated GFR (Cockcroft-Gault) 56.4 BUN/Creatinine Ratio 13 (6-20) Glucose Level 288 mg/dL (70-99) H Lactic Acid Level 3.9 mmol/L (0.4-2.0) H Calcium Level 9.2 mg/dL (8.5-10.1) Magnesium Level 1.8 mg/dL (1.8-2.4) Total Bilirubin 0.3 mg/dL (0.2-1.0) Aspartate Amino Transferase (AST) 17 U/L (15-37) Alanine Aminotransferase (ALT) 19 U/L (14-59) Alkaline Phosphatase 101 U/L (46-116) Creatine Kinase 103 U/L (26-192) Creatine Kinase MB (Mass) 1.7 ng/mL (0.0-3.6) Creatine Kinase MB Relative Index 1.7 % (0-4) Troponin I Quantitative 0.145 ng/mL (0.000-0.055) Total Protein 7.9 g/dL (6.4-8.2) Albumin 4.5 g/dL (3.4-5.0) Albumin/Globulin Ratio 1.3 (1.0-1.7) Urine Collection Type U cath Urine Color Yellow Urine Clarity Cloudy Urine pH 5.0 (<5.0-8.0) Urine Specific [place] >=1.030 (1.000-1.030) Urine Protein >=300 mg/dL (NEG-TRACE) Urine Glucose (UA) >=1000 mg/dL (NEG) Urine Ketones (Stick) 15 mg/dL (NEG) Urine Blood Small (NEG) Urine Nitrite Negative (NEG) Urine Bilirubin Negative (NEG) Urine Urobilinogen Dipstick 0.2 mg/dL (0.2 mg/dL) Urine Leukocyte Esterase Negative (NEG) Urine RBC Occ /HPF (0-2) Urine WBC Rare /HPF (0-4) Urine Squamous Epithelial Cells Many /LPF Urine Bacteria Moderate /HPF (0-FEW) Laboratory Tests 03/13/20 13:12 Laboratory Tests 03/13/20 13:12 Vital Signs: Vital Signs Date Time Temp Pulse Resp B/P (MAP) Pulse Ox O2 Delivery O2 Flow Rate FiO2 03/13/20 12:47 98.9 128 22 217/103 (141) 89 Room Air 98.9 EKG: EK03-13-2020 at 12:53 PM Heart rate 128 bpm MI: 146 ms QRS: 84 ms QT 280 ms QTc: 412 ms Impression: Sinus tachycardia. 03-13-2020 at 14:23 Heart rate 117 bpm MI: 120ms QRS 138 ms QT 330 ms QTc 465 ms Impression: Sinus tachycard Radiology/Procedures: Radiology/Procedures: PROCEDURE: CT HEAD WO CONTRAST CT head without contrast: Reason for examination: Seizure like activity. History of stroke. Comparison is made to previous study dated 02/24/2019. Axial images were obtained through the brain. No contrast was administered. Exposure: One or more of the following individualized dose reduction techniques were utilized for this examination: 1. Automated exposure control 2. Adjustment of the mA and/or kV according to patient size 3. Use of iterative reconstruction technique. Ventricular systems show some asymmetric dilatation of the left ventricular system consistent with some compensatory enlargement due to the large area of encephalomalacia involving the left frontal, parietal and temporal lobes from chronic infarct. There continues to be associated calcification at the infarct site. No midline shift is seen. No new sites of hemorrhage, infarct or masses are seen. No abnormalities of seen at the orbits. There is a lesion probably representing a mucous retention cyst in the right maxillary antrum measuring approximately 2.2 cm in greatest dimension. The remaining paranasal sinuses and mastoid air cells are clear. No acute skull abnormality is seen. IMPRESSION: No acute intracranial abnormality seen. Chronic infarcts in the left frontal, temporal and parietal lobes with encephalomalacia and some compensatory enlargement of the left lateral ventricular system. Mucous retention cyst in the right maxillary antrum. Electronically signed by: Sigrid Donnelly MD (03/13/2020 1:41 PM) [facility] PROCEDURE: CHEST AP ONLY Study: CR CHEST AP ONLY Indication: New heart murmur. Elevated troponin. Leukocytosis. Concern for pneumonia. Comparison: 02/24/2019 Findings: The cardiomediastinal silhouette and wei are similar in configuration to the 2019 comparison. Generalized increased lung markings are similar to the comparison on the right but slightly more pronounced on the left. There is also hazy increased attenuation mainly at the periphery of the mid to lower left lung. Blunted left costophrenic angle. No confluent infiltrate on the right. The bones appear somewhat osteopenic. Vascular calcifications. Impression: Asymmetric increased lung markings on the left and hazy increased attenuation at the periphery of the mid to lower left lung. Suspected small pleural effusion on the left. Asymmetric interstitial edema or an infectious process, possibly atypical such as viral, are considerations. Electronically signed by: CHAPIN VAUGHN MD (03/13/2020 11:44 PM) [id number] Course & Med Decision Making: Course & Med Decision Making 60-year-old white female who presents approximately 4 hours post seizure, and speculative stroke. Patient with history of dementia, prior stroke, and is nonverbal at baseline. Differential diagnosis: Postictal state, stroke CT without sign of hemorrhage. Labs obtained and posted to chart. WBC slightly elevated. Lactic acid elevated (likely due to seizure like activity). Troponin elevated. EKG stable. CXR with some signs of pleural effusion and probable atelectasis. Patient hypertensive which was also addressed. Patient requiring admission for further evaluation and treatment. Discussed with Dr. Barragan (hospitalist) who is in agreement with admission. Consultation to neurology placed. Saenz Disclaimer: Letty Disclaimer: This electronic medical record was generated, in whole or in part, using a voice recognition dictation system. Departure Departure Impression: Primary Impression: Witnessed seizure-like activity Additional Impressions: Hypertensive urgency Elevated troponin Disposition: ADMITTED INPATIENT Admitting Physician: QI Gonzales) Condition: GUARDED Referrals: UNKNOWN PCP NAME (PCP) Justicifation of Admission Dx: Justifications for Admission: Justification of Admission Dx: Yes Comments: Seizure like activity, elevated troponin Critical Care Time Critical care time was 30 minutes which includes time at bedside, spent in discussion of patient's care with specialists and/or family members, with interpretation of laboratory and/or radiological studies and is exclusive of procedures. ABDIEL LAWSON DO Mar 13, 2020 14:17
[2020-03-13] MEDS ORDERED: ONDANSETRON PF 4 MG/2 ML VIAL. IV PRN ×2 (14:30→16:30)
[2020-03-13] MEDS ORDERED: DEXTROSE 50% 25 GM / 50ML DISP.SYRIN. IV PRN ×2 (14:30→16:30)
[2020-03-13 15:30] VITALS: BP 144/67
--- NOTE | 2020-03-13 15:52 | EKG ---
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
[2020-03-13] MEDS ORDERED: MAGNESIUM SULFATE 2GM 50 ML IV ONE (17:00)
[2020-03-13] MEDS: INSULIN LISPRO 300 UNITS/3 ML VIAL. SQ SCH ×2 (17:00→21:00)
[2020-03-13] MEDS ORDERED: INSULIN LISPRO 300 UNITS/3 ML VIAL. SQ SCH (17:00)
[2020-03-13] MEDS: POTASSIUM CHLORIDE 10MEQ 100 ML IV SCH ×2 (17:56→19:51)
[2020-03-13 18:15] VITALS: BP 134/60
[2020-03-13] MEDS ORDERED: BUSP5TAB PO (18:51)
[2020-03-13] MEDS ORDERED: LEVE500T56 PO (18:51)
[2020-03-13] MEDS ORDERED: [UNRECOGNIZED DRUG - OTHER] PO (18:51)
[2020-03-13] MEDS ORDERED: GUAI237L83 PO ×2 (18:51)
[2020-03-13] MEDS ORDERED: ACET325T21 PO (18:51)
[2020-03-13] MEDS ORDERED: POLY119P4 PO (18:51)
[2020-03-13] MEDS: ATORVASTATIN CALCIUM 40 MG TABLET. PO SCH (21:00)
[2020-03-13] MEDS: busPIRone 5 MG TABLET. PO SCH (21:00)
[2020-03-13] MEDS ORDERED: levETIRAcetam 500 MG TABLET PO SCH (21:00)
[2020-03-13] MEDS ORDERED: POLYETHYLENE GLYCOL 3350 BTL 238 GM POWDER PO PRN (21:00)
[2020-03-13] MEDS: DONEPEZIL HCL 10 MG TABLET. PO SCH (21:00)
[2020-03-13] MEDS: levETIRAcetam 750 MG in IV DEXTROSE 5% 100ML 100 ML IV SCH (21:00)
[2020-03-13] MEDS ORDERED: guaiFENesin DM 200MG/20MG 10 ML SYRUP PO PRN (21:15)
--- NOTE | 2020-03-13 22:39 | CONS ---
DATE OF CONSULTATION: 03/13/2020 REFERRING PHYSICIAN: Rafael Barragan MD REASON FOR CONSULTATION: Seizure, possible recurrent stroke. HISTORY OF PRESENT ILLNESS: The patient is a 60-year-old woman who presented to [facility] via EMS due to a seizure at her nursing facility. She had a stroke in 2018, which was large and involved most of her left hemisphere with devastating consequences with globally aphasia and right hemiplegia. She has inability to speak, but can understand a certain amount of words. She had a witnessed seizure at the [facility] and was lowered to the ground. She was postictal following the event and they noticed neurologic deficits on the left side with a facial droop, which was new because everything was on the right side previously. She was transferred to [facility]. In speaking with her nurse, she has had no further seizures that they are aware of. She did not pass her swallow study. The nurses administered earlier today, so is currently nothing by mouth. PAST MEDICAL HISTORY: 1. Large left hemispheric stroke in 2018. 3. Type 2 diabetes. 4. Hyperlipidemia. 5. Hypertension. 6. Left knee replacement. 7. Right elbow surgery. ALLERGIES: SULFA. MEDICATIONS ON PRIOR ADMISSION: Acetaminophen 650 mg 3 times per day, aspirin 81 mg, buspirone 5 mg 3 times per day, donepezil 10 mg nightly, multivitamin, folic acid 1 mg, Robitussin as needed, levetiracetam 500 mg twice per day, loratadine 10 mg, MiraLax 17 grams as needed, sertraline 200 mg, thiamine 100 mg and tramadol 50 mg every 6 hours as needed. FAMILY HISTORY: Noncontributory. SOCIAL HISTORY: She is a lifelong nonsmoker. She does not drink alcohol or use recreational drugs. REVIEW OF SYSTEMS: Completely unobtainable as the patient is nonverbal. PHYSICAL EXAMINATION: VITAL SIGNS: The blood pressure was 134/60, pulse 126, respirations 20, temperature 98.3 degrees Fahrenheit. Oximetry was 94% on 1 liter nasal cannula. GENERAL: She was alert and awake. She was attentive to the examiner. She did not seem to understand many verbal instructions. She understood more with some pantomime, but still was quite limited. She could say the word yes occasionally. Orientation testing was not possible. NEUROLOGIC: Examination of the cranial nerves revealed that she did not respond to visual threat in the right visual field, but did to the left with a blink. The eyes were conjugate. She was able to follow my hand. Facial sensation was intact. Muscles of mastication were symmetric. She did not have a left facial droop, but had delay of right smile. Hearing was intact to loud clap with a blink. The tongue was midline. Muscle bulk was symmetric. Tone was increased on the right side with spasticity. Left arm strength appeared fairly full. Left leg strength appeared somewhat diminished. She did not have movement on the right side. Reflexes brisker in the right side than the left. She had sustained clonus at the right ankle. Coordination testing was not possible. Spontaneous movements of the left side seemed fairly well-coordinated. Sensory exam was intact on the left side to nail bed pressure with a grimace and withdrawal. In the right hand, she perceived pain after a while, but could not localize it. She did not seem to perceive as much pain in the right foot. Gait was not testable. NECK: Auscultation of the carotid arteries did not reveal a bruit. HEART: Rhythm was regular with a loud systolic murmur heard best in the left second intercostal space. EXTREMITIES: Peripheral pulses were symmetric in the wrists and very difficult to palpate in the feet. There was no edema or cyanosis. LABORATORY RESULTS: CBC was performed 03/13/2020, revealing an elevated white blood cell count of 17.1. Hemoglobin, hematocrit and platelet counts were normal. Chemistries were performed on 03/13/2020. Sodium was normal as well as chloride and CO2. Potassium was low at 3.3. BUN and creatinine were normal with a GFR that calculated at 56.4. The glucose was elevated to 288. Calcium and magnesium were normal. Liver enzymes were not elevated. CPK was not elevated. Total protein and albumin were normal. Urinalysis was performed on 03/13/2020. This revealed a high specific gravity of greater than 1.030 with greater than 300 mg/dL of protein and greater than 1000 glucose. Ketone was 15. There was a small amount of blood. Nitrite and leukocyte esterase were negative. There were occasional red cells and rare white blood cells and many squamous epithelial cells. PT/INR was 1.2 and PTT was 36. DIAGNOSTIC RESULTS: CT scan of the brain was performed without contrast on 03/13/2020. There was no acute intracranial process. She had chronic infarcts in the left frontal, temporal and parietal lobes with encephalomalacia and compensatory enlargement of the left lateral ventricular system. There was a mucous retention cyst in the right maxillary antrum. IMPRESSION: The patient is a 60-year-old woman who had a devastating stroke in 2018, leading to global aphasia, right hemiplegia, right homonymous hemianopsia and right hemisensory loss. She has resided in a [facility] and has made little recovery. She had a seizure today despite the fact that she was receiving Keppra 500 mg twice per day. It is possible she has had a new event, but I do not see definite evidence of this clinically. It may be difficult to determine given her substantial deficits and limited ability to cooperate. RECOMMENDATIONS: I would proceed with an MRI brain without contrast to further evaluate for an acute stroke. I will increase Keppra to 750 mg twice per day. I will switch this to intravenous until it is proven she is able to swallow again. I will be happy to reevaluate. I appreciate being involved in her care. CHRISTIANO WILLOUGHBY MD DR: COLLIN/coni JOB#: [id number] / [id number]
[2020-03-13 23:15] VITALS: BP 127/61
[2020-03-13] MEDS ORDERED: HEPARIN for IV BOLUS 10,000 UNIT/10 ML VIAL. IV PRN (23:45)
[2020-03-13] MEDS ORDERED: HEPARIN for IV BOLUS 10,000 UNIT/10 ML VIAL. IV ONE (23:45)
[2020-03-13] MEDS ORDERED: HEPARIN 25,000UTS/250ML PREMIX 250 ML IV PRN (23:45)
--- NOTE | 2020-03-13 23:47 | RAD ---
Study: CR CHEST AP ONLY Indication: New heart murmur. Elevated troponin. Leukocytosis. Concern for pneumonia. Comparison: 02/24/2019 Findings: The cardiomediastinal silhouette and wei are similar in configuration to the 2019 comparison. Generalized increased lung markings are similar to the comparison on the right but slightly more pronounced on the left. There is also hazy increased attenuation mainly at the periphery of the mid to lower left lung. Blunted left costophrenic angle. No confluent infiltrate on the right. The bones appear somewhat osteopenic. Vascular calcifications. Impression: Asymmetric increased lung markings on the left and hazy increased attenuation at the periphery of the mid to lower left lung. Suspected small pleural effusion on the left. Asymmetric interstitial edema or an infectious process, possibly atypical such as viral, are considerations. Electronically signed by: CHAPIN VAUGHN MD (03/13/2020 11:44 PM) [id number]
[2020-03-14 03:00] VITALS: BP 122/57
[2020-03-14 06:57] LABS: BASO % 1 % (0-3); EOS % 0 % (0-3); LYMPH # 2.1 x10^3/uL (1.0-4.8); LYMPH % 22 % (24-48); MEAN CORPUSCULAR HEMOGLOBIN 29 pg (25-35); MEAN CORPUSCULAR HGB CONC 33 g/dL (31-37); MEAN CORPUSCULAR VOLUME 88 fL (79-100); MONO # 0.6 x10^3/uL (0.0-1.1); MONO % 6 % (0-9); NEUT # 6.7 x10^3/uL (1.8-7.7); NEUT % 71 % (31-73); PLATELET COUNT 264 x10^3/uL (140-400); RED BLOOD COUNT 4.09 x10^6/uL (3.50-5.40); WHITE BLOOD COUNT 9.4 x10^3/uL (4.0-11.0)
[2020-03-14 07:00] VITALS: BP 133/60
[2020-03-14 07:29] LABS: CALCIUM 8.5 mg/dL (8.5-10.1); CREATININE 0.6 mg/dL (0.6-1.0); GFR 101.6; POTASSIUM 3.7 mmol/L (3.5-5.1)
[2020-03-14 07:39] LABS: CHOLESTEROL/HDL RATIO 2.9
[2020-03-14] MEDS: INSULIN LISPRO 300 UNITS/3 ML VIAL. SQ SCH ×4 (08:00→21:00)
[2020-03-14] MEDS: levETIRAcetam 750 MG in IV DEXTROSE 5% 100ML 100 ML IV SCH ×2 (09:00→21:00)
[2020-03-14] MEDS: FOLIC ACID 1 MG TABLET. PO SCH (09:00)
[2020-03-14] MEDS: SERTRALINE 50 MG TABLET. PO SCH (09:00)
[2020-03-14] MEDS: ASPIRIN CHEWABLE 81 MG TABLET. PO SCH (09:00)
[2020-03-14] MEDS: MULTIVITAMIN with MINERAL TABLET. PO SCH (09:00)
[2020-03-14] MEDS: CETIRIZINE HCL 10 MG TABLET. PO SCH (09:00)
[2020-03-14] MEDS: THIAMINE 100 MG TABLET. PO SCH (09:00)
[2020-03-14] MEDS: busPIRone 5 MG TABLET. PO SCH ×3 (09:00→21:59)
--- NOTE | 2020-03-14 10:58 | PDOC ---
[employer] PROGRESS NOTE Date of Service DOS: DATE: 03/14/20 TIME: 10:53 Chief Complaint Chief Complaint Seizures History of Present Illness History of Present Illness 03/14/20 Patient is alert this morning, moving her left upper extremity. She only provides one-word answers, "yeah". Discussed with RN, patient did not pass her bedside swallow and speech therapy has been consulted. She remains n.p.o., and she is on heparin drip due to elevated troponins. Vitals/I&O Vitals/I&O: Vital Signs Date Time Temp Pulse Resp B/P (MAP) Pulse Ox O2 Delivery O2 Flow Rate FiO2 03/14/20 08:00 Nasal Cannula 2.0 03/14/20 07:00 98.0 96 20 133/60 (84) 95 98.0 I & O 03/13/20 03/13/20 03/14/20 15:00 23:00 07:00 Intake Total 0 ml 899 ml Balance 0 ml 899 ml Physical Exam General: Alert, Cooperative, No acute distress Heart: Regular rate, Normal S1, Normal S2 Lungs: Clear Abdomen: Normal bowel sounds, Soft, No tenderness, No hepatosplenomegaly, No masses Extremities: No clubbing, No cyanosis, No edema, Normal pulses, No tenderness/swelling Skin: No rashes, No breakdown, No significant lesion Labs Labs: Laboratory Tests Test 03/13/20 13:12 03/13/20 13:40 03/13/20 16:28 03/13/20 18:07 White Blood Count 17.1 x10^3/uL (4.0-11.0) Red Blood Count 4.87 x10^6/uL (3.50-5.40) Hemoglobin 14.4 g/dL (12.0-15.5) Hematocrit 43.4 % (36.0-47.0) Mean Corpuscular Volume 89 fL (79-100) Mean Corpuscular Hemoglobin 30 pg (25-35) Mean Corpuscular Hemoglobin Concent 33 g/dL (31-37) Red Cell Distribution Width 15.0 % (11.5-14.5) Platelet Count 336 x10^3/uL (140-400) Neutrophils (%) (Auto) 91 % (31-73) Lymphocytes (%) (Auto) 8 % (24-48) Monocytes (%) (Auto) 1 % (0-9) Eosinophils (%) (Auto) 0 % (0-3) Basophils (%) (Auto) 0 % (0-3) Neutrophils # (Auto) 15.5 x10^3/uL (1.8-7.7) Lymphocytes # (Auto) 1.3 x10^3/uL (1.0-4.8) Monocytes # (Auto) 0.2 x10^3/uL (0.0-1.1) Eosinophils # (Auto) 0.0 x10^3/uL (0.0-0.7) Basophils # (Auto) 0.0 x10^3/uL (0.0-0.2) Segmented Neutrophils % 83 % (35-66) Band Neutrophils % 4 % (0-9) Lymphocytes % 12 % (24-48) Monocytes % 1 % (0-10) Toxic Granulation Slight Platelet Estimate Adequate (ADEQUATE) Prothrombin Time 14.3 SEC (11.7-14.0) Prothromb Time International Ratio 1.2 (0.8-1.1) Activated Partial Thromboplast Time 36 SEC (24-38) Sodium Level 138 mmol/L (136-145) Potassium Level 3.3 mmol/L (3.5-5.1) Chloride Level 102 mmol/L (98-107) Carbon Dioxide Level 25 mmol/L (21-32) Anion Gap 11 (6-14) Blood Urea Nitrogen 13 mg/dL (7-20) Creatinine 1.0 mg/dL (0.6-1.0) Estimated GFR (Cockcroft-Gault) 56.4 BUN/Creatinine Ratio 13 (6-20) Glucose Level 288 mg/dL (70-99) Lactic Acid Level 3.9 mmol/L (0.4-2.0) 3.1 mmol/L (0.4-2.0) Calcium Level 9.2 mg/dL (8.5-10.1) Magnesium Level 1.8 mg/dL (1.8-2.4) Total Bilirubin 0.3 mg/dL (0.2-1.0) Aspartate Amino Transf (AST/SGOT) 17 U/L (15-37) Alanine Aminotransferase (ALT/SGPT) 19 U/L (14-59) Alkaline Phosphatase 101 U/L (46-116) Creatine Kinase 103 U/L (26-192) Creatine Kinase MB (Mass) 1.7 ng/mL (0.0-3.6) Creatine Kinase MB Relative Index 1.7 % (0-4) Troponin I Quantitative 0.145 ng/mL (0.000-0.055) 1.875 ng/mL (0.000-0.055) Total Protein 7.9 g/dL (6.4-8.2) Albumin 4.5 g/dL (3.4-5.0) Albumin/Globulin Ratio 1.3 (1.0-1.7) Urine Collection Type U cath Urine Color Yellow Urine Clarity Cloudy Urine pH 5.0 (<5.0-8.0) Urine Specific [place]olia >=1.030 (1.000-1.030) Urine Protein >=300 mg/dL (NEG-TRACE) Urine Glucose (UA) >=1000 mg/dL (NEG) Urine Ketones (Stick) 15 mg/dL (NEG) Urine Blood Small (NEG) Urine Nitrite Negative (NEG) Urine Bilirubin Negative (NEG) Urine Urobilinogen Dipstick 0.2 mg/dL (0.2 mg/dL) Urine Leukocyte Esterase Negative (NEG) Urine RBC Occ /HPF (0-2) Urine WBC Rare /HPF (0-4) Urine Squamous Epithelial Cells Many /LPF Urine Bacteria Moderate /HPF (0-FEW) Glucose (Fingerstick) 155 mg/dL (70-99) Test 03/13/20 21:00 03/13/20 21:40 03/14/20 06:30 03/14/20 08:38 Troponin I Quantitative 2.771 ng/mL (0.000-0.055) 3.704 ng/mL (0.000-0.055) Glucose (Fingerstick) 162 mg/dL (70-99) 136 mg/dL (70-99) White Blood Count 9.4 x10^3/uL (4.0-11.0) Red Blood Count 4.09 x10^6/uL (3.50-5.40) Hemoglobin 12.0 g/dL (12.0-15.5) Hematocrit 36.0 % (36.0-47.0) Mean Corpuscular Volume 88 fL (79-100) Mean Corpuscular Hemoglobin 29 pg (25-35) Mean Corpuscular Hemoglobin Concent 33 g/dL (31-37) Red Cell Distribution Width 15.0 % (11.5-14.5) Platelet Count 264 x10^3/uL (140-400) Neutrophils (%) (Auto) 71 % (31-73) Lymphocytes (%) (Auto) 22 % (24-48) Monocytes (%) (Auto) 6 % (0-9) Eosinophils (%) (Auto) 0 % (0-3) Basophils (%) (Auto) 1 % (0-3) Neutrophils # (Auto) 6.7 x10^3/uL (1.8-7.7) Lymphocytes # (Auto) 2.1 x10^3/uL (1.0-4.8) Monocytes # (Auto) 0.6 x10^3/uL (0.0-1.1) Eosinophils # (Auto) 0.0 x10^3/uL (0.0-0.7) Basophils # (Auto) 0.0 x10^3/uL (0.0-0.2) Heparin Anti-Xa Act, Unfractionated 0.62 IU/mL (0.30-0.70) Sodium Level 139 mmol/L (136-145) Potassium Level 3.7 mmol/L (3.5-5.1) Chloride Level 105 mmol/L (98-107) Carbon Dioxide Level 27 mmol/L (21-32) Anion Gap 7 (6-14) Blood Urea Nitrogen 8 mg/dL (7-20) Creatinine 0.6 mg/dL (0.6-1.0) Estimated GFR (Cockcroft-Gault) 101.6 Glucose Level 122 mg/dL (70-99) Lactic Acid Level 0.7 mmol/L (0.4-2.0) Calcium Level 8.5 mg/dL (8.5-10.1) Triglycerides Level 60 mg/dL (0-150) Cholesterol Level 216 mg/dL (0-200) LDL Cholesterol, Calculated 130 mg/dL (0-100) VLDL Cholesterol, Calculated 12 mg/dL (0-40) Non-HDL Cholesterol Calculated 142 mg/dL (0-129) HDL Cholesterol 74 mg/dL (40-60) Cholesterol/HDL Ratio 2.9 Procalcitonin 0.33 ng/mL (0.00-0.10) Review of Systems Review of Systems: Unable to obtain due to clinical condition Assessment and Plan Assessmemt and Plan Problems Medical Problems: (1) Elevated troponin Status: Acute (2) Hypertensive urgency Status: Acute (3) Witnessed seizure-like activity Status: Acute Comment Review of Relevant I have reviewed the following items kay (where applicable) has been applied. Medications: Current Medications Medications (Trade) Dose Ordered Sig/Alice Route PRN Reason Start Time Stop Time Status Last Admin Dose Admin Sodium Chloride 1,000 ml @ 1,000 mls/hr 1X ONCE IV 03/13/20 12:45 03/13/20 13:44 DC 03/13/20 13:30 Lorazepam (Ativan Inj) 0.5 mg 1X ONCE IVP 03/13/20 13:00 03/13/20 13:01 DC 03/13/20 13:20 Aspirin (Aspirin Rectal Supp) 300 mg 1X ONCE DC 03/13/20 14:15 03/13/20 14:16 DC 03/13/20 14:15 Labetalol HCl (Normodyne Iv Push) 20 mg 1X ONCE IVP 03/13/20 14:15 03/13/20 14:16 DC 03/13/20 14:20 Potassium Chloride/Water 100 ml @ 100 mls/hr Q1H IV 03/13/20 17:00 03/13/20 18:59 DC 03/13/20 19:51 Magnesium Sulfate 50 ml @ 25 mls/hr 1X ONCE IV 03/13/20 17:00 03/13/20 18:59 DC 03/13/20 16:48 Sodium Chloride 1,000 ml @ 75 mls/hr 1X ONCE IV 03/13/20 18:30 03/14/20 07:49 DC 03/13/20 18:53 Levetiracetam 750 mg/Dextrose 107.5 ml @ 420 mls/hr Q12HR IV 03/13/20 21:00 03/14/20 09:00 Heparin Sodium (Porcine) (Heparin Sodium) 4,000 unit 1X ONCE IV 03/13/20 23:45 03/13/20 23:46 DC 03/14/20 00:12 Heparin Sodium/ Dextrose 250 ml @ 0 mls/hr CONT PRN IV PER PROTOCOL 03/13/20 23:45 03/14/20 00:28 Justifications for Admission Other Justification MATIAS CHONG MD Mar 14, 2020 10:57
[2020-03-14 11:00] VITALS: BP 135/62
[2020-03-14 15:00] VITALS: BP 131/60
--- NOTE | 2020-03-14 15:35 | RAD ---
EXAMINATION: Magnetic resonance imaging (MRI) of the brain and brainstem without contrast 03/14/2020 9:00 AM HISTORY: New stroke TECHNIQUE: Multiplanar multi-weighted MRI of the brain and brainstem was performed without intravenous contrast using the general brain protocol. COMPARISON: MRI brain 12/19/2009 FINDINGS: The scalp and calvarium are normal. The superior sagittal sinus demonstrates normal venous flow. The corpus callosum is normal in shape and signal intensity. The posterior fossa is unremarkable. The pituitary and sella are normal. The brainstem and craniocervical junction are unremarkable. There is diffusion signal hyperintensity involving the left amygdala and body and tail of the left hippocampus suggestive of acute ischemia. There is corresponding low signal on ADC map. Remote infarct is noted involving the left middle cerebral artery territory with involvement of the left frontal, parietal and temporal lobes. Infarct involves the left insula with ex vacuo dilatation of the body of the left lateral ventricle as well as the atria and temporal horn. There is cytotoxic edema involving the left hippocampus. The left middle cerebral artery flow void is not definitively visualized. Intrinsic T1 signal hyperintensity along the left cerebral artery territory favors laminar necrosis. Extensive hemosiderin deposition is suggestive of remote hemorrhagic infarct. The susceptibility weighted sequences reveal no evidence of acute or chronic hemorrhage. Mild generalized cerebral volume loss. No hydrocephalus. Mild mucosal thickening of the right maxillary sinus. The visualized portions of the mastoids are unremarkable. The orbits appear normal. IMPRESSION: 1. Suspect acute to subacute ischemia involving the left hippocampus is mild associated cytotoxic edema. No significant mass effect or midline shift. 2. 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 FOR INTERNAL CODING PURPOSES Critical result: Findings discussed with Deandra at 03/14/2020 3:31 PM. RESULT CODE: (C) Electronically signed by: Kiley Zendejas MD (03/14/2020 3:32 PM) [facility]
--- NOTE | 2020-03-14 15:48 | PDOC2 ---
CARDIOLOGY CONSULT NOTE DATE OF SERVICE: DATE: 03/14/20 TIME: 15:39 CHIEF COMPLAINT: Elevated troponin HPI: 60 y.o woman with new diagnosis of stroke possible, ? hippocampal stroke versus seizures. She was noted to have positive troponin. Cardiology asked to evaluate her. She denies any chest pain. She presented with hypertensive emergency, seizure like activity PMHX: 1. CVA 2. HTN 3. DLP SOCHX: No alcohol/tob or illicits. Lives in skilled nursing FAMHX: NC CURRENT MEDS: Current Medications Medications (Trade) Dose Ordered Sig/Alice Route PRN Reason Start Time Stop Time Status Last Admin Dose Admin Potassium Chloride/Water 100 ml @ 100 mls/hr Q1H IV 03/13/20 17:00 03/13/20 18:59 DC 03/13/20 19:51 Magnesium Sulfate 50 ml @ 25 mls/hr 1X ONCE IV 03/13/20 17:00 03/13/20 18:59 DC 03/13/20 16:48 Sodium Chloride 1,000 ml @ 75 mls/hr 1X ONCE IV 03/13/20 18:30 03/14/20 07:49 DC 03/13/20 18:53 Levetiracetam 750 mg/Dextrose 107.5 ml @ 420 mls/hr Q12HR IV 03/13/20 21:00 03/14/20 09:00 Heparin Sodium (Porcine) (Heparin Sodium) 4,000 unit 1X ONCE IV 03/13/20 23:45 03/13/20 23:46 DC 03/14/20 00:12 Heparin Sodium/ Dextrose 250 ml @ 0 mls/hr CONT PRN IV PER PROTOCOL 03/13/20 23:45 03/14/20 00:28 ALLERGIES: Allergies Coded Allergies Type Severity Reaction Last Updated Verified Sulfa (Sulfonamide Antibiotics) Allergy Severe Anaphylaxis 07/22/14 Yes ROS: negative unless noted above in [facility]Pi PHYSICAL EXAM: Vital Signs/I&O: Vital Signs Date Time Temp Pulse Resp B/P (MAP) Pulse Ox O2 Delivery O2 Flow Rate FiO2 03/14/20 11:00 99.1 87 20 135/62 (86) 96 Nasal Cannula 1.0 99.1 I & O 03/13/20 03/13/20 03/14/20 15:00 23:00 07:00 Intake Total 0 ml 899 ml Balance 0 ml 899 ml Physical Exam: GEN.: No apparent distress. Alert and oriented. HEENT: Head is normocephalic, atraumatic NECK: Supple. LUNGS: Clear to auscultation. HEART: RRR, S1, S2 present. Peripheral pulses intact ABDOMEN: Soft, nontender. Positive bowel sounds. EXTREMITIES: Without any cyanosis. SKIN: No ulcerations DIAGNOSTIC TESTING: Labs reviewed. Tele unremarkable. Echo from 2018 with normal LV function Lab Laboratory Tests Test 03/13/20 16:28 03/13/20 18:07 03/13/20 21:40 03/14/20 06:30 Lactic Acid Level 3.1 mmol/L (0.4-2.0) H 0.7 mmol/L (0.4-2.0) Glucose (Fingerstick) 155 mg/dL (70-99) H 162 mg/dL (70-99) H White Blood Count 9.4 x10^3/uL (4.0-11.0) Red Blood Count 4.09 x10^6/uL (3.50-5.40) Hemoglobin 12.0 g/dL (12.0-15.5) Hematocrit 36.0 % (36.0-47.0) Mean Corpuscular Volume 88 fL (79-100) Mean Corpuscular Hemoglobin 29 pg (25-35) Mean Corpuscular Hemoglobin Concent 33 g/dL (31-37) Red Cell Distribution Width 15.0 % (11.5-14.5) H Platelet Count 264 x10^3/uL (140-400) Neutrophils (%) (Auto) 71 % (31-73) Lymphocytes (%) (Auto) 22 % (24-48) L Monocytes (%) (Auto) 6 % (0-9) Eosinophils (%) (Auto) 0 % (0-3) Basophils (%) (Auto) 1 % (0-3) Neutrophils # (Auto) 6.7 x10^3/uL (1.8-7.7) Lymphocytes # (Auto) 2.1 x10^3/uL (1.0-4.8) Monocytes # (Auto) 0.6 x10^3/uL (0.0-1.1) Eosinophils # (Auto) 0.0 x10^3/uL (0.0-0.7) Basophils # (Auto) 0.0 x10^3/uL (0.0-0.2) Heparin Anti-Xa Act, Unfractionated 0.62 IU/mL (0.30-0.70) Sodium Level 139 mmol/L (136-145) Potassium Level 3.7 mmol/L (3.5-5.1) Chloride Level 105 mmol/L (98-107) Carbon Dioxide Level 27 mmol/L (21-32) Anion Gap 7 (6-14) Blood Urea Nitrogen 8 mg/dL (7-20) Creatinine 0.6 mg/dL (0.6-1.0) Estimated GFR (Cockcroft-Gault) 101.6 Glucose Level 122 mg/dL (70-99) H Calcium Level 8.5 mg/dL (8.5-10.1) Cholesterol Level 216 mg/dL (0-200) H LDL Cholesterol, Calculated 130 mg/dL (0-100) H VLDL Cholesterol, Calculated 12 mg/dL (0-40) Non-HDL Cholesterol Calculated 142 mg/dL (0-129) H Cholesterol/HDL Ratio 2.9 Procalcitonin 0.33 ng/mL (0.00-0.10) H Test 03/14/20 08:38 03/14/20 12:46 03/14/20 13:30 Glucose (Fingerstick) 136 mg/dL (70-99) H 149 mg/dL (70-99) H Heparin Anti-Xa Act, Unfractionated 0.34 IU/mL (0.30-0.70) Laboratory Tests 03/14/20 06:30 ASSESSMENT: 1. NSTEMI - likely due to HTN and possible seizure. 2. ? CVA PLAN: 1. Await neurology team decision regarding stroke timing, will hold on hep gtt. 2. Supportive care. Continue asa, atorvastatin. 3. Consider cath if stroke is not acute. Thanks Supportive care. NELSON BRENNAN MD Mar 14, 2020 15:48
[2020-03-14] MEDS ORDERED: ANTI-COAG MONITOR BY PHARMACY. MC PRN (16:00)
[2020-03-14 19:15] VITALS: BP 140/65
[2020-03-14] MEDS: DONEPEZIL HCL 10 MG TABLET. PO SCH (21:59)
[2020-03-14] MEDS: ATORVASTATIN CALCIUM 40 MG TABLET. PO SCH (21:59)
[2020-03-14 23:00] VITALS: BP 134/69
--- NOTE | 2020-03-14 23:48 | PDOC ---
PROGRESS NOTES Date of Service DATE: 03/14/20 TIME: 23:43 Assessment Problems Medical Problems: (1) Elevated troponin-this is being addressed by cardiology. Status: Acute (2) Hypertensive urgency-this is being addressed by medicine modification. Status: Acute (3) Witnessed seizure-like activity-she has had no further seizure-like activity. 4. Hyperlipidemia noted on fasting lipid profile with a markedly elevated LDL cholesterol. 5. 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 This is not a large stroke burden. I am not certain this would clinically change much given the size of her previous stroke. Status: Acute Plan 1. Elevated troponin-the heparin drip may be initiated from a neurologic perspective. I feel there is not a high chance for hemorrhagic conversion of the stroke. I feel a discussion would need to occur with the family before considering a catheterization procedure and intervention. The main question is whether the family desires to do a procedure that would prolong her life. This comes down to her perceived quality of her current existence. Subjective Essentially nonverbal Objective Vital Signs Date Time Temp Pulse Resp B/P (MAP) Pulse Ox O2 Delivery O2 Flow Rate FiO2 03/14/20 19:51 Nasal Cannula 2.0 03/14/20 19:15 98.4 94 20 140/65 (90) 94 98.4 Intake and Output 03/14/20 07:00 Intake Total 899 ml Balance 899 ml Intake Oral 0 ml IV Total 899 ml # Voids 1 PROCEDURE: BRAIN W/O CONTRAST EXAMINATION: Magnetic resonance imaging (MRI) of the brain and brainstem without contrast 03/14/2020 9:00 AM HISTORY: New stroke TECHNIQUE: Multiplanar multi-weighted MRI of the brain and brainstem was performed without intravenous contrast using the general brain protocol. COMPARISON: MRI brain 12/19/2009 FINDINGS: The scalp and calvarium are normal. The superior sagittal sinus demonstrates normal venous flow. The corpus callosum is normal in shape and signal intensity. The posterior fossa is unremarkable. The pituitary and sella are normal. The brainstem and craniocervical junction are unremarkable. There is diffusion signal hyperintensity involving the left amygdala and body and tail of the left hippocampus suggestive of acute ischemia. There is corresponding low signal on ADC map. Remote infarct is noted involving the left middle cerebral artery territory with involvement of the left frontal, parietal and temporal lobes. Infarct involves the left insula with ex vacuo dilatation of the body of the left lateral ventricle as well as the atria and temporal horn. There is cytotoxic edema involving the left hippocampus. The left middle cerebral artery flow void is not definitively visualized. Intrinsic T1 signal hyperintensity along the left cerebral artery territory favors laminar necrosis. Extensive hemosiderin deposition is suggestive of remote hemorrhagic infarct. The susceptibility weighted sequences reveal no evidence of acute or chronic hemorrhage. Mild generalized cerebral volume loss. No hydrocephalus. Mild mucosal thickening of the right maxillary sinus. The visualized portions of the mastoids are unremarkable. The orbits appear normal. IMPRESSION: 1. Suspect acute to subacute ischemia involving the left hippocampus is mild associated cytotoxic edema. No significant mass effect or midline shift. 2. 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 PHYSICAL EXAM She was lying in the bed watching television. She looked at the examiner and was attentive. She did not follow any verbal commands. She was able to move her left side well but could not move her right side. She did not appear to be in pain. She did not have a right visual field. Review of Relevant I have reviewed the following items kay (where applicable) has been applied. Labs Laboratory Tests Test 03/13/20 13:12 03/13/20 13:40 03/13/20 16:28 03/13/20 18:07 White Blood Count 17.1 x10^3/uL (4.0-11.0) Red Blood Count 4.87 x10^6/uL (3.50-5.40) Hemoglobin 14.4 g/dL (12.0-15.5) Hematocrit 43.4 % (36.0-47.0) Mean Corpuscular Volume 89 fL (79-100) Mean Corpuscular Hemoglobin 30 pg (25-35) Mean Corpuscular Hemoglobin Concent 33 g/dL (31-37) Red Cell Distribution Width 15.0 % (11.5-14.5) Platelet Count 336 x10^3/uL (140-400) Neutrophils (%) (Auto) 91 % (31-73) Lymphocytes (%) (Auto) 8 % (24-48) Monocytes (%) (Auto) 1 % (0-9) Eosinophils (%) (Auto) 0 % (0-3) Basophils (%) (Auto) 0 % (0-3) Neutrophils # (Auto) 15.5 x10^3/uL (1.8-7.7) Lymphocytes # (Auto) 1.3 x10^3/uL (1.0-4.8) Monocytes # (Auto) 0.2 x10^3/uL (0.0-1.1) Eosinophils # (Auto) 0.0 x10^3/uL (0.0-0.7) Basophils # (Auto) 0.0 x10^3/uL (0.0-0.2) Segmented Neutrophils % 83 % (35-66) Band Neutrophils % 4 % (0-9) Lymphocytes % 12 % (24-48) Monocytes % 1 % (0-10) Toxic Granulation Slight Platelet Estimate Adequate (ADEQUATE) Prothrombin Time 14.3 SEC (11.7-14.0) Prothromb Time International Ratio 1.2 (0.8-1.1) Activated Partial Thromboplast Time 36 SEC (24-38) Sodium Level 138 mmol/L (136-145) Potassium Level 3.3 mmol/L (3.5-5.1) Chloride Level 102 mmol/L (98-107) Carbon Dioxide Level 25 mmol/L (21-32) Anion Gap 11 (6-14) Blood Urea Nitrogen 13 mg/dL (7-20) Creatinine 1.0 mg/dL (0.6-1.0) Estimated GFR (Cockcroft-Gault) 56.4 BUN/Creatinine Ratio 13 (6-20) Glucose Level 288 mg/dL (70-99) Lactic Acid Level 3.9 mmol/L (0.4-2.0) 3.1 mmol/L (0.4-2.0) Calcium Level 9.2 mg/dL (8.5-10.1) Magnesium Level 1.8 mg/dL (1.8-2.4) Total Bilirubin 0.3 mg/dL (0.2-1.0) Aspartate Amino Transf (AST/SGOT) 17 U/L (15-37) Alanine Aminotransferase (ALT/SGPT) 19 U/L (14-59) Alkaline Phosphatase 101 U/L (46-116) Creatine Kinase 103 U/L (26-192) Creatine Kinase MB (Mass) 1.7 ng/mL (0.0-3.6) Creatine Kinase MB Relative Index 1.7 % (0-4) Troponin I Quantitative 0.145 ng/mL (0.000-0.055) 1.875 ng/mL (0.000-0.055) Total Protein 7.9 g/dL (6.4-8.2) Albumin 4.5 g/dL (3.4-5.0) Albumin/Globulin Ratio 1.3 (1.0-1.7) Urine Collection Type U cath Urine Color Yellow Urine Clarity Cloudy Urine pH 5.0 (<5.0-8.0) Urine Specific [place] >=1.030 (1.000-1.030) Urine Protein >=300 mg/dL (NEG-TRACE) Urine Glucose (UA) >=1000 mg/dL (NEG) Urine Ketones (Stick) 15 mg/dL (NEG) Urine Blood Small (NEG) Urine Nitrite Negative (NEG) Urine Bilirubin Negative (NEG) Urine Urobilinogen Dipstick 0.2 mg/dL (0.2 mg/dL) Urine Leukocyte Esterase Negative (NEG) Urine RBC Occ /HPF (0-2) Urine WBC Rare /HPF (0-4) Urine Squamous Epithelial Cells Many /LPF Urine Bacteria Moderate /HPF (0-FEW) Glucose (Fingerstick) 155 mg/dL (70-99) Test 03/13/20 21:00 03/13/20 21:40 03/14/20 06:30 03/14/20 08:38 Troponin I Quantitative 2.771 ng/mL (0.000-0.055) 3.704 ng/mL (0.000-0.055) Glucose (Fingerstick) 162 mg/dL (70-99) 136 mg/dL (70-99) White Blood Count 9.4 x10^3/uL (4.0-11.0) Red Blood Count 4.09 x10^6/uL (3.50-5.40) Hemoglobin 12.0 g/dL (12.0-15.5) Hematocrit 36.0 % (36.0-47.0) Mean Corpuscular Volume 88 fL (79-100) Mean Corpuscular Hemoglobin 29 pg (25-35) Mean Corpuscular Hemoglobin Concent 33 g/dL (31-37) Red Cell Distribution Width 15.0 % (11.5-14.5) Platelet Count 264 x10^3/uL (140-400) Neutrophils (%) (Auto) 71 % (31-73) Lymphocytes (%) (Auto) 22 % (24-48) Monocytes (%) (Auto) 6 % (0-9) Eosinophils (%) (Auto) 0 % (0-3) Basophils (%) (Auto) 1 % (0-3) Neutrophils # (Auto) 6.7 x10^3/uL (1.8-7.7) Lymphocytes # (Auto) 2.1 x10^3/uL (1.0-4.8) Monocytes # (Auto) 0.6 x10^3/uL (0.0-1.1) Eosinophils # (Auto) 0.0 x10^3/uL (0.0-0.7) Basophils # (Auto) 0.0 x10^3/uL (0.0-0.2) Heparin Anti-Xa Act, Unfractionated 0.62 IU/mL (0.30-0.70) Sodium Level 139 mmol/L (136-145) Potassium Level 3.7 mmol/L (3.5-5.1) Chloride Level 105 mmol/L (98-107) Carbon Dioxide Level 27 mmol/L (21-32) Anion Gap 7 (6-14) Blood Urea Nitrogen 8 mg/dL (7-20) Creatinine 0.6 mg/dL (0.6-1.0) Estimated GFR (Cockcroft-Gault) 101.6 Glucose Level 122 mg/dL (70-99) Lactic Acid Level 0.7 mmol/L (0.4-2.0) Calcium Level 8.5 mg/dL (8.5-10.1) Triglycerides Level 60 mg/dL (0-150) Cholesterol Level 216 mg/dL (0-200) LDL Cholesterol, Calculated 130 mg/dL (0-100) VLDL Cholesterol, Calculated 12 mg/dL (0-40) Non-HDL Cholesterol Calculated 142 mg/dL (0-129) HDL Cholesterol 74 mg/dL (40-60) Cholesterol/HDL Ratio 2.9 Procalcitonin 0.33 ng/mL (0.00-0.10) Test 03/14/20 12:46 03/14/20 13:30 03/14/20 17:20 03/14/20 20:55 Glucose (Fingerstick) 149 mg/dL (70-99) 128 mg/dL (70-99) 125 mg/dL (70-99) Heparin Anti-Xa Act, Unfractionated 0.34 IU/mL (0.30-0.70) Laboratory Tests Test 03/14/20 06:30 03/14/20 08:38 03/14/20 12:46 03/14/20 13:30 White Blood Count 9.4 x10^3/uL (4.0-11.0) Red Blood Count 4.09 x10^6/uL (3.50-5.40) Hemoglobin 12.0 g/dL (12.0-15.5) Hematocrit 36.0 % (36.0-47.0) Mean Corpuscular Volume 88 fL (79-100) Mean Corpuscular Hemoglobin 29 pg (25-35) Mean Corpuscular Hemoglobin Concent 33 g/dL (31-37) Red Cell Distribution Width 15.0 % (11.5-14.5) Platelet Count 264 x10^3/uL (140-400) Neutrophils (%) (Auto) 71 % (31-73) Lymphocytes (%) (Auto) 22 % (24-48) Monocytes (%) (Auto) 6 % (0-9) Eosinophils (%) (Auto) 0 % (0-3) Basophils (%) (Auto) 1 % (0-3) Neutrophils # (Auto) 6.7 x10^3/uL (1.8-7.7) Lymphocytes # (Auto) 2.1 x10^3/uL (1.0-4.8) Monocytes # (Auto) 0.6 x10^3/uL (0.0-1.1) Eosinophils # (Auto) 0.0 x10^3/uL (0.0-0.7) Basophils # (Auto) 0.0 x10^3/uL (0.0-0.2) Heparin Anti-Xa Act, Unfractionated 0.62 IU/mL (0.30-0.70) 0.34 IU/mL (0.30-0.70) Sodium Level 139 mmol/L (136-145) Potassium Level 3.7 mmol/L (3.5-5.1) Chloride Level 105 mmol/L (98-107) Carbon Dioxide Level 27 mmol/L (21-32) Anion Gap 7 (6-14) Blood Urea Nitrogen 8 mg/dL (7-20) Creatinine 0.6 mg/dL (0.6-1.0) Estimated GFR (Cockcroft-Gault) 101.6 Glucose Level 122 mg/dL (70-99) Lactic Acid Level 0.7 mmol/L (0.4-2.0) Calcium Level 8.5 mg/dL (8.5-10.1) Troponin I Quantitative 3.704 ng/mL (0.000-0.055) Triglycerides Level 60 mg/dL (0-150) Cholesterol Level 216 mg/dL (0-200) LDL Cholesterol, Calculated 130 mg/dL (0-100) VLDL Cholesterol, Calculated 12 mg/dL (0-40) Non-HDL Cholesterol Calculated 142 mg/dL (0-129) HDL Cholesterol 74 mg/dL (40-60) Cholesterol/HDL Ratio 2.9 Procalcitonin 0.33 ng/mL (0.00-0.10) Glucose (Fingerstick) 136 mg/dL (70-99) 149 mg/dL (70-99) Test 03/14/20 17:20 03/14/20 20:55 Glucose (Fingerstick) 128 mg/dL (70-99) 125 mg/dL (70-99) Microbiology 03/13/20 Urine Culture - Final, Complete 03/13/20 Blood Culture - Preliminary, Resulted NO GROWTH AFTER 1 DAY Medications Current Medications Sodium Chloride 1,000 ml @ 1,000 mls/hr 1X ONCE IV Last administered on 03/13/20at 13:30; Start 03/13/20 at 12:45; Stop 03/13/20 at 13:44; Status DC Lorazepam (Ativan Inj) 0.5 mg 1X ONCE IVP Last administered on 03/13/20at 13:20; Start 03/13/20 at 13:00; Stop 03/13/20 at 13:01; Status DC Aspirin (Aspirin Rectal Supp) 300 mg 1X ONCE NE Last administered on 03/13/20at 14:15; Start 03/13/20 at 14:15; Stop 03/13/20 at 14:16; Status DC Labetalol HCl (Normodyne Iv Push) 20 mg 1X ONCE IVP Last administered on 03/13/20at 14:20; Start 03/13/20 at 14:15; Stop 03/13/20 at 14:16; Status DC Ondansetron HCl (Zofran) 4 mg PRN Q8HRS PRN IV NAUSEA/VOMITING; Start 03/13/20 at 14:30; Stop 03/13/20 at 16:26; Status DC Insulin Human Lispro (HumaLOG) 0-5 UNITS TIDWMEALS SQ ; Start 03/13/20 at 17:00; Stop 03/13/20 at 16:28; Status DC Dextrose (Dextrose 50%-Water Syringe) 12.5 gm PRN Q15MIN PRN IV SEE COMMENTS; Start 03/13/20 at 14:30; Status Cancel Ondansetron HCl (Zofran) 4 mg PRN Q4HRS PRN IV NAUSEA/VOMITING; Start 03/13/20 at 16:30 Potassium Chloride/Water 100 ml @ 100 mls/hr Q1H IV Last administered on 03/13/20at 19:51; Start 03/13/20 at 17:00; Stop 03/13/20 at 18:59; Status DC Magnesium Sulfate 50 ml @ 25 mls/hr 1X ONCE IV Last administered on 03/13/20at 16:48; Start 03/13/20 at 17:00; Stop 03/13/20 at 18:59; Status DC Insulin Human Lispro (HumaLOG) 0-9 UNITS TIDWMEALHC SQ ; Start 03/13/20 at 17:00 Dextrose (Dextrose 50%-Water Syringe) 12.5 gm PRN Q15MIN PRN IV SEE COMMENTS; Start 03/13/20 at 16:30 Atorvastatin Calcium (Lipitor) 40 mg QHS PO Last administered on 03/14/20at 21:59; Start 03/13/20 at 21:00 Sodium Chloride 1,000 ml @ 75 mls/hr 1X ONCE IV Last administered on 03/13/20at 18:53; Start 03/13/20 at 18:30; Stop 03/14/20 at 07:49; Status DC Aspirin (Aspirin Chewable) 81 mg DAILY PO ; Start 03/14/20 at 09:00 Buspirone HCl (Buspar) 5 mg TID PO Last administered on 03/14/20at 21:59; Start 03/13/20 at 21:00 Donepezil HCl (Aricept) 10 mg HS PO Last administered on 03/14/20at 21:59; Start 03/13/20 at 21:00 Folic Acid (Folic Acid) 1 mg DAILY PO ; Start 03/14/20 at 09:00 Levetiracetam (Keppra) 500 mg BID PO ; Start 03/13/20 at 21:00; Stop 03/13/20 at 21:03; Status DC Polyethylene Glycol (miraLAX Powder BULK BOTTLE) 17 gm PRN DAILY PRN PO CONSTIPATION; Start 03/13/20 at 21:00 Thiamine Mononitrate (Vitamin B-1) 100 mg DAILY PO ; Start 03/14/20 at 09:00 Multivitamins (Thera M Plus) 1 tab DAILY PO ; Start 03/14/20 at 09:00 Guaifenesin (Robitussin Dm) 10 ml PRN Q6HRS PRN PO COUGH; Start 03/13/20 at 21:15 Cetirizine HCl (ZyrTEC) 10 mg DAILY PO ; Start 03/14/20 at 09:00 Sertraline HCl (Zoloft) 200 mg DAILY PO ; Start 03/14/20 at 09:00 Levetiracetam 750 mg/Dextrose 107.5 ml @ 420 mls/hr Q12HR IV Last administered on 03/14/20at 21:00; Start 03/13/20 at 21:00; Stop 03/14/20 at 23:17; Status DC Heparin Sodium (Porcine) (Heparin Sodium) 4,000 unit 1X ONCE IV Last administered on 03/14/20at 00:12; Start 03/13/20 at 23:45; Stop 03/14/20 at 19:05; Status DC Heparin Sodium/ Dextrose 250 ml @ 0 mls/hr CONT PRN IV PER PROTOCOL Last administered on 03/14/20at 00:28; Start 03/13/20 at 23:45; Stop 03/14/20 at 19:06; Status DC Heparin Sodium (Porcine) (Heparin Sodium) 2,200 unit PRN Q6HRS PRN IV FOR UFH LEVEL LESS THAN 0.2; Start 03/13/20 at 23:45; Stop 03/14/20 at 19:06; Status DC Info (Anti-Coagulation Monitoring By Pharmacy) 1 each PRN DAILY PRN MC SEE COMMENTS Last administered on 03/14/20at 15:59; Start 03/14/20 at 16:00 Levetiracetam (Keppra) 750 mg BID PO ; Start 03/15/20 at 09:00; Status UNV Active Scripts Active Reported Robitussin Cough-Chest Dm Liq (Guaifenesin/Dextromethorphan) 237 Ml Liquid 10 Ml PO PRN Q8HRS PRN Robitussin Cough-Chest Dm Liq (Guaifenesin/Dextromethorphan) 237 Ml Liquid 10 Ml PO QHS Miralax (Polyethylene Glycol 3350) 119 Gm Powder 17 Gm PO PRN DAILY PRN dissolve in water Keppra (Levetiracetam) 500 Mg Tablet 500 Mg PO BID Centravites Tablet (Fa/Mv,Ca,Iron,Min/Lycopene/Lut) 1 Each Tablet 1 Each PO DAILY Buspirone Hcl 5 Mg Tablet 5 Mg PO TID Acetaminophen 325 Mg Tablet 650 Mg PO TID Tramadol Hcl 50 Mg Tablet 50 Mg PO Q6HRS PRN Vitamin B-1 (Thiamine Mononitrate) 100 Mg Tablet 100 Mg PO DAILY Zoloft (Sertraline Hcl) 100 Mg Tablet 200 Mg PO DAILY Loratadine 10 Mg Tablet 1 Tab PO DAILY Folic Acid 1 Mg Tablet 1 Tab PO DAILY Donepezil Hcl 10 Mg Tablet 10 Mg PO HS Aspirin 81 Mg Tab.chew 1 Tab PO DAILY Vitals/I & O Vital Sign - Last 24 Hours 03/14/20 03/14/20 03/14/20 03/14/20 03:00 07:00 08:00 11:00 Temp 98.8 98.0 99.1 98.8 98.0 99.1 Pulse 99 96 87 Resp 20 B/P (MAP) 122/57 (78) 133/60 (84) 135/62 (86) Pulse Ox 95 95 96 O2 Delivery Nasal Cannula Nasal Cannula Nasal Cannula Nasal Cannula O2 Flow Rate 2.0 2.0 2.0 1.0 03/14/20 03/14/20 03/14/20 15:00 19:15 19:51 Temp 98.3 98.4 98.3 98.4 Pulse 81 94 Resp 20 B/P (MAP) 131/60 (83) 140/65 (90) Pulse Ox 96 94 O2 Delivery Room Air Room Air Nasal Cannula O2 Flow Rate 2.0 Intake and Output 03/13/20 03/13/20 03/14/20 15:00 23:00 07:00 Intake Total 0 ml 899 ml Balance 0 ml 899 ml Justicifation of Admission Dx: Justifications for Admission: Justification of Admission Dx: Yes CHRISTIANO WILLOUGHBY MD Mar 14, 2020 23:48
[2020-03-15 03:00] VITALS: BP 145/70
[2020-03-15 05:40] LABS: BASO % 1 % (0-3); EOS % 0 % (0-3); HEMATOCRIT 36.4 % (36.0-47.0); HEMOGLOBIN 12.4 g/dL (12.0-15.5); LYMPH # 2.8 x10^3/uL (1.0-4.8); LYMPH % 30 % (24-48); MEAN CORPUSCULAR HEMOGLOBIN 30 pg (25-35); MEAN CORPUSCULAR HGB CONC 34 g/dL (31-37); MEAN CORPUSCULAR VOLUME 88 fL (79-100); MONO # 0.7 x10^3/uL (0.0-1.1); MONO % 8 % (0-9); NEUT # 5.7 x10^3/uL (1.8-7.7); NEUT % 62 % (31-73); PLATELET COUNT 270 x10^3/uL (140-400); RED BLOOD COUNT 4.16 x10^6/uL (3.50-5.40); RED CELL DISTRIBUTION WIDTH 14.7 % (11.5-14.5); WHITE BLOOD COUNT 9.3 x10^3/uL (4.0-11.0)
[2020-03-15 06:03] LABS: CALCIUM 9.2 mg/dL (8.5-10.1); CREATININE 0.6 mg/dL (0.6-1.0); GFR 101.6; POTASSIUM 3.4 mmol/L (3.5-5.1)
[2020-03-15 07:00] VITALS: BP 139/64
[2020-03-15] MEDS: INSULIN LISPRO 300 UNITS/3 ML VIAL. SQ SCH ×4 (08:00→20:41)
[2020-03-15] MEDS: FOLIC ACID 1 MG TABLET. PO SCH (09:19)
[2020-03-15] MEDS: CETIRIZINE HCL 10 MG TABLET. PO SCH (09:19)
[2020-03-15] MEDS: SERTRALINE 50 MG TABLET. PO SCH (09:19)
[2020-03-15] MEDS: MULTIVITAMIN with MINERAL TABLET. PO SCH (09:20)
[2020-03-15] MEDS: THIAMINE 100 MG TABLET. PO SCH (09:20)
[2020-03-15] MEDS: levETIRAcetam 500 MG TABLET PO SCH ×2 (09:20→20:41)
[2020-03-15] MEDS: ASPIRIN CHEWABLE 81 MG TABLET. PO SCH (09:20)
[2020-03-15] MEDS: busPIRone 5 MG TABLET. PO SCH ×3 (09:20→20:40)
--- NOTE | 2020-03-15 10:38 | PDOC ---
CARDIOLOGY PROGRESS NOTE SUBJECTIVE: No new events. OBJECTIVE: Vital Signs/I&O: Vital Signs Date Time Temp Pulse Resp B/P (MAP) Pulse Ox O2 Delivery O2 Flow Rate FiO2 03/15/20 07:00 98.5 77 20 139/64 (89) 95 Room Air 98.5 03/14/20 23:00 2.0 I & O 03/14/20 03/14/20 03/15/20 15:00 23:00 07:00 Intake Total 200 ml 280 ml 150 ml Balance 200 ml 280 ml 150 ml Objective: No new changes CURRENT MEDICATIONS: Current Medications Medications (Trade) Dose Ordered Sig/Alice Route PRN Reason Start Time Stop Time Status Last Admin Dose Admin Info (Anti-Coagulation Monitoring By Pharmacy) 1 each PRN DAILY PRN MC SEE COMMENTS 03/14/20 16:00 03/15/20 07:26 DC 03/14/20 15:59 Levetiracetam (Keppra) 750 mg BID PO 03/15/20 09:00 03/15/20 09:20 DIAGNOSTIC TESTING: labs reviewed Labs: Laboratory Tests 03/15/20 05:20 Laboratory Tests Test 03/14/20 12:46 03/14/20 13:30 03/14/20 17:20 03/14/20 20:55 Glucose (Fingerstick) 149 mg/dL (70-99) H 128 mg/dL (70-99) H 125 mg/dL (70-99) H Heparin Anti-Xa Act, Unfractionated 0.34 IU/mL (0.30-0.70) Test 03/15/20 05:20 03/15/20 07:46 White Blood Count 9.3 x10^3/uL (4.0-11.0) Red Blood Count 4.16 x10^6/uL (3.50-5.40) Hemoglobin 12.4 g/dL (12.0-15.5) Hematocrit 36.4 % (36.0-47.0) Mean Corpuscular Volume 88 fL (79-100) Mean Corpuscular Hemoglobin 30 pg (25-35) Mean Corpuscular Hemoglobin Concent 34 g/dL (31-37) Red Cell Distribution Width 14.7 % (11.5-14.5) H Platelet Count 270 x10^3/uL (140-400) Neutrophils (%) (Auto) 62 % (31-73) Lymphocytes (%) (Auto) 30 % (24-48) Monocytes (%) (Auto) 8 % (0-9) Eosinophils (%) (Auto) 0 % (0-3) Basophils (%) (Auto) 1 % (0-3) Neutrophils # (Auto) 5.7 x10^3/uL (1.8-7.7) Lymphocytes # (Auto) 2.8 x10^3/uL (1.0-4.8) Monocytes # (Auto) 0.7 x10^3/uL (0.0-1.1) Eosinophils # (Auto) 0.0 x10^3/uL (0.0-0.7) Basophils # (Auto) 0.0 x10^3/uL (0.0-0.2) Sodium Level 142 mmol/L (136-145) Potassium Level 3.4 mmol/L (3.5-5.1) L Chloride Level 105 mmol/L (98-107) Carbon Dioxide Level 28 mmol/L (21-32) Anion Gap 9 (6-14) Blood Urea Nitrogen 13 mg/dL (7-20) Creatinine 0.6 mg/dL (0.6-1.0) Estimated GFR (Cockcroft-Gault) 101.6 Glucose Level 113 mg/dL (70-99) H Calcium Level 9.2 mg/dL (8.5-10.1) Glucose (Fingerstick) 112 mg/dL (70-99) H ASSESSMENT: 1. NSTEMI - likely Type 2 2. CVA - ? acute PLAN: 1. Repeat troponin. 2. Start plavix. 3. Await echo 4. left message for regarding goals of care. If her echo looks normal, would favor conservative mgmt, if abnormal, could consider cath depending on pt and family wishes. Thanks. Justicifation of Admission Dx: Justifications for Admission: Justification of Admission Dx: Yes NELSON BRENNAN MD Mar 15, 2020 10:38
[2020-03-15 11:00] VITALS: BP 128/61
[2020-03-15] MEDS ORDERED: CLOPIDOGREL BISULFATE 75 MG TABLET PO ONE (12:00)
[2020-03-15] MEDS: METOPROLOL TART IMMED RELEASE 25 MG TABLET. PO SCH ×2 (12:13→20:40)
--- NOTE | 2020-03-15 14:36 | PDOC ---
[facility] PROGRESS NOTE Date of Service DOS: DATE: 03/15/20 TIME: 14:34 Chief Complaint Chief Complaint Seizures History of Present Illness History of Present Illness 03/15/2020 Patient evaluated bedside, moving left arm spontaneously. Attempted to contact to discuss goals of care, no answer left voicemail. Agree with cardiology plan of care for heart cath if abnormal echo. Discussed with RN. 03/14/20 Patient is alert this morning, moving her left upper extremity. She only provides one-word answers, "yeah". Discussed with RN, patient did not pass her bedside swallow and speech therapy has been consulted. She remains n.p.o., and she is on heparin drip due to elevated troponins. Vitals/I&O Vitals/I&O: Vital Signs Date Time Temp Pulse Resp B/P (MAP) Pulse Ox O2 Delivery O2 Flow Rate FiO2 03/15/20 12:13 83 128/61 03/15/20 11:00 98.8 20 100 Room Air 98.8 03/14/20 23:00 2.0 I & O 03/14/20 03/14/20 03/15/20 15:00 23:00 07:00 Intake Total 200 ml 280 ml 150 ml Balance 200 ml 280 ml 150 ml Physical Exam General: Alert, Cooperative, No acute distress Heart: Regular rate, Normal S1, Normal S2 Lungs: Clear Abdomen: Normal bowel sounds, Soft, No tenderness, No hepatosplenomegaly, No masses Extremities: No clubbing, No cyanosis, No edema, Normal pulses, No tenderness/swelling Skin: No rashes, No breakdown, No significant lesion Labs Labs: Laboratory Tests Test 03/14/20 17:20 03/14/20 20:55 03/15/20 05:20 03/15/20 07:46 Glucose (Fingerstick) 128 mg/dL (70-99) 125 mg/dL (70-99) 112 mg/dL (70-99) White Blood Count 9.3 x10^3/uL (4.0-11.0) Red Blood Count 4.16 x10^6/uL (3.50-5.40) Hemoglobin 12.4 g/dL (12.0-15.5) Hematocrit 36.4 % (36.0-47.0) Mean Corpuscular Volume 88 fL (79-100) Mean Corpuscular Hemoglobin 30 pg (25-35) Mean Corpuscular Hemoglobin Concent 34 g/dL (31-37) Red Cell Distribution Width 14.7 % (11.5-14.5) Platelet Count 270 x10^3/uL (140-400) Neutrophils (%) (Auto) 62 % (31-73) Lymphocytes (%) (Auto) 30 % (24-48) Monocytes (%) (Auto) 8 % (0-9) Eosinophils (%) (Auto) 0 % (0-3) Basophils (%) (Auto) 1 % (0-3) Neutrophils # (Auto) 5.7 x10^3/uL (1.8-7.7) Lymphocytes # (Auto) 2.8 x10^3/uL (1.0-4.8) Monocytes # (Auto) 0.7 x10^3/uL (0.0-1.1) Eosinophils # (Auto) 0.0 x10^3/uL (0.0-0.7) Basophils # (Auto) 0.0 x10^3/uL (0.0-0.2) Sodium Level 142 mmol/L (136-145) Potassium Level 3.4 mmol/L (3.5-5.1) Chloride Level 105 mmol/L (98-107) Carbon Dioxide Level 28 mmol/L (21-32) Anion Gap 9 (6-14) Blood Urea Nitrogen 13 mg/dL (7-20) Creatinine 0.6 mg/dL (0.6-1.0) Estimated GFR (Cockcroft-Gault) 101.6 Glucose Level 113 mg/dL (70-99) Calcium Level 9.2 mg/dL (8.5-10.1) Troponin I Quantitative 1.911 ng/mL (0.000-0.055) Test 03/15/20 11:55 Glucose (Fingerstick) 116 mg/dL (70-99) Assessment and Plan Assessmemt and Plan Problems Medical Problems: (1) Elevated troponin Status: Acute (2) Hypertensive urgency Status: Acute (3) Witnessed seizure-like activity Status: Acute Comment Review of Relevant I have reviewed the following items kay (where applicable) has been applied. Medications: Current Medications Medications (Trade) Dose Ordered Sig/Alice Route PRN Reason Start Time Stop Time Status Last Admin Dose Admin Info (Anti-Coagulation Monitoring By Pharmacy) 1 each PRN DAILY PRN MC SEE COMMENTS 03/14/20 16:00 03/15/20 07:26 DC 03/14/20 15:59 Levetiracetam (Keppra) 750 mg BID PO 03/15/20 09:00 03/15/20 09:20 Metoprolol Tartrate (Lopressor) 12.5 mg BID PO 03/15/20 12:00 03/15/20 12:13 Clopidogrel Bisulfate (Plavix) 75 mg 1X ONCE PO 03/15/20 12:00 03/15/20 12:01 DC 03/15/20 12:12 Justifications for Admission Other Justification MATIAS CHONG MD Mar 15, 2020 14:36
[2020-03-15 15:00] VITALS: BP 118/58
[2020-03-15 19:00] VITALS: BP 131/62
[2020-03-15] MEDS: DONEPEZIL HCL 10 MG TABLET. PO SCH (20:41)
[2020-03-15] MEDS: ATORVASTATIN CALCIUM 40 MG TABLET. PO SCH (20:41)
[2020-03-15 23:08] VITALS: BP 133/67
[2020-03-16 02:45] VITALS: BP 126/61
[2020-03-16 05:56] LABS: BASO # 0.1 x10^3/uL (0.0-0.2); BASO % 1 % (0-3); EOS % 0 % (0-3); HEMATOCRIT 38.2 % (36.0-47.0); LYMPH # 3.1 x10^3/uL (1.0-4.8); LYMPH % 37 % (24-48); MEAN CORPUSCULAR HEMOGLOBIN 30 pg (25-35); MEAN CORPUSCULAR HGB CONC 34 g/dL (31-37); MEAN CORPUSCULAR VOLUME 88 fL (79-100); MONO # 0.6 x10^3/uL (0.0-1.1); MONO % 7 % (0-9); NEUT # 4.7 x10^3/uL (1.8-7.7); NEUT % 55 % (31-73); PLATELET COUNT 249 x10^3/uL (140-400); RED BLOOD COUNT 4.35 x10^6/uL (3.50-5.40); RED CELL DISTRIBUTION WIDTH 14.6 % (11.5-14.5); WHITE BLOOD COUNT 8.5 x10^3/uL (4.0-11.0)
[2020-03-16 06:01] LABS: CREATININE 0.7 mg/dL (0.6-1.0); GFR 85.1; POTASSIUM 3.3 mmol/L (3.5-5.1)
[2020-03-16 07:00] VITALS: BP 133/70
[2020-03-16] MEDS: INSULIN LISPRO 300 UNITS/3 ML VIAL. SQ SCH ×4 (07:42→21:00)
[2020-03-16] MEDS: ASPIRIN CHEWABLE 81 MG TABLET. PO SCH (08:47)
[2020-03-16] MEDS: levETIRAcetam 500 MG TABLET PO SCH ×2 (08:47→21:56)
[2020-03-16] MEDS: METOPROLOL TART IMMED RELEASE 25 MG TABLET. PO SCH ×2 (08:48→21:56)
[2020-03-16] MEDS: CETIRIZINE HCL 10 MG TABLET. PO SCH (08:48)
[2020-03-16] MEDS: busPIRone 5 MG TABLET. PO SCH ×3 (08:48→21:55)
[2020-03-16] MEDS: MULTIVITAMIN with MINERAL TABLET. PO SCH (08:48)
[2020-03-16] MEDS: CLOPIDOGREL BISULFATE 75 MG TABLET PO SCH (08:48)
[2020-03-16] MEDS: THIAMINE 100 MG TABLET. PO SCH (08:48)
[2020-03-16] MEDS: SERTRALINE 50 MG TABLET. PO SCH (08:48)
[2020-03-16] MEDS: FOLIC ACID 1 MG TABLET. PO SCH (08:48)
[2020-03-16 11:00] VITALS: BP 134/62
[2020-03-16] MEDS ORDERED: POTASSIUM CHLORIDE 10MEQ 100 ML IV PRN ×3 (11:00→12:15)
[2020-03-16] MEDS ORDERED: MAGNESIUM SULFATE 2GM 50 ML IV SCH (11:00)
[2020-03-16] MEDS ORDERED: POTASSIUM CHLORIDE 20 MEQ TABLET.ER. PO PRN ×2 (11:00→12:15)
[2020-03-16] MEDS ORDERED: POTASSIUM CHLORIDE 10MEQ 100 ML IV SCH (11:00)
--- NOTE | 2020-03-16 12:09 | PDOC ---
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 Pending echo, possible left heart cath depending on results Heparin drip for DVT prophylaxis Pepcid GI prophylaxis ADA diet Full code Discussed with RN and SW Disposition pending echo Surrogate decision maker is the History of Present Illness History of Present Illness 03/16/2020 No acute events overnight. Tolerating diet. Patient seen and examined bedside. No new focal neurological deficits. Pending echo at this time. Patient's chart, labs, images were reviewed and discussed with RN 03/15/2020 Patient evaluated bedside, moving left arm spontaneously. Attempted to contact to discuss goals of care, no answer left voicemail. Agree with cardiology plan of care for heart cath if abnormal echo. Discussed with RN. 03/14/20 Patient is alert this morning, moving her left upper extremity. She only provides one-word answers, "yeah". Discussed with RN, patient did not pass her bedside swallow and speech therapy has been consulted. She remains n.p.o., and she is on heparin drip due to elevated troponins. Vitals/I&O Vitals/I&O: Vital Signs Date Time Temp Pulse Resp B/P (MAP) Pulse Ox O2 Delivery O2 Flow Rate FiO2 03/16/20 11:00 99.0 76 16 134/62 (86) 94 Room Air 99.0 I & O 03/15/20 03/15/20 03/16/20 15:00 23:00 07:00 Intake Total 630 ml 325 ml 25 ml Balance 630 ml 325 ml 25 ml Physical Exam Physical Exam: GEN: No apparent distress. Alert and oriented HEENT: Normal cephalic, atraumatic, external auditory canals are patent NECK: Supple, no JVD, no thyromegaly was noted LUNGS: Bilateral crackles HEART: RRR, S1, S2 present. Peripheral pulses intact, no obvious murmurs noted ABDOMEN: Soft, nontender. Positive bowel sounds, no organomegaly, normal bowel sounds EXTREMITIES: Right side residual hemiparesis. General: Alert, Cooperative, No acute distress Heart: Regular rate, Normal S1, Normal S2 Lungs: Clear Abdomen: Normal bowel sounds, Soft, No tenderness, No hepatosplenomegaly, No masses Extremities: No clubbing, No cyanosis, No edema, Normal pulses, No tenderness/swelling Skin: No rashes, No breakdown, No significant lesion Labs Labs: Laboratory Tests Test 03/15/20 17:11 03/15/20 20:39 03/16/20 05:06 03/16/20 07:34 Glucose (Fingerstick) 114 mg/dL (70-99) 123 mg/dL (70-99) 88 mg/dL (70-99) White Blood Count 8.5 x10^3/uL (4.0-11.0) Red Blood Count 4.35 x10^6/uL (3.50-5.40) Hemoglobin 13.0 g/dL (12.0-15.5) Hematocrit 38.2 % (36.0-47.0) Mean Corpuscular Volume 88 fL (79-100) Mean Corpuscular Hemoglobin 30 pg (25-35) Mean Corpuscular Hemoglobin Concent 34 g/dL (31-37) Red Cell Distribution Width 14.6 % (11.5-14.5) Platelet Count 249 x10^3/uL (140-400) Neutrophils (%) (Auto) 55 % (31-73) Lymphocytes (%) (Auto) 37 % (24-48) Monocytes (%) (Auto) 7 % (0-9) Eosinophils (%) (Auto) 0 % (0-3) Basophils (%) (Auto) 1 % (0-3) Neutrophils # (Auto) 4.7 x10^3/uL (1.8-7.7) Lymphocytes # (Auto) 3.1 x10^3/uL (1.0-4.8) Monocytes # (Auto) 0.6 x10^3/uL (0.0-1.1) Eosinophils # (Auto) 0.0 x10^3/uL (0.0-0.7) Basophils # (Auto) 0.1 x10^3/uL (0.0-0.2) Sodium Level 143 mmol/L (136-145) Potassium Level 3.3 mmol/L (3.5-5.1) Chloride Level 106 mmol/L (98-107) Carbon Dioxide Level 28 mmol/L (21-32) Anion Gap 9 (6-14) Blood Urea Nitrogen 13 mg/dL (7-20) Creatinine 0.7 mg/dL (0.6-1.0) Estimated GFR (Cockcroft-Gault) 85.1 Glucose Level 105 mg/dL (70-99) Calcium Level 9.0 mg/dL (8.5-10.1) Test 03/16/20 11:55 Glucose (Fingerstick) 122 mg/dL (70-99) Assessment and Plan Assessmemt and Plan Problems Medical Problems: (1) Elevated troponin Status: Acute (2) Hypertensive urgency Status: Acute (3) Witnessed seizure-like activity Status: Acute Comment Review of Relevant I have reviewed the following items kay (where applicable) has been applied. Medications: Current Medications Medications (Trade) Dose Ordered Sig/Alice Route PRN Reason Start Time Stop Time Status Last Admin Dose Admin Clopidogrel Bisulfate (Plavix) 75 mg DAILYWBKFT PO 03/16/20 08:00 03/16/20 08:48 Justifications for Admission Other Justification JUNAID NAVA MD Mar 16, 2020 12:09
[2020-03-16] MEDS ORDERED: MAGNESIUM SULFATE 2GM 50 ML IV PRN (12:15)
[2020-03-16] MEDS: FAMOTIDINE 20 MG TABLET. PO SCH ×2 (12:34→21:55)
[2020-03-16 15:00] VITALS: BP 112/57
[2020-03-16 19:00] VITALS: BP 126/60
[2020-03-16] MEDS ORDERED: MAGNESIUM OXIDE 400 MG TABLET PO PRN (21:00)
[2020-03-16] MEDS ORDERED: MAGNESIUM OXIDE 400 MG TABLET PO SCH (21:00)
[2020-03-16] MEDS: DONEPEZIL HCL 10 MG TABLET. PO SCH (21:55)
[2020-03-16] MEDS: ATORVASTATIN CALCIUM 40 MG TABLET. PO SCH (21:55)
[2020-03-16 22:42] VITALS: BP 130/63
[2020-03-17 02:34] VITALS: BP 135/63
[2020-03-17 07:00] VITALS: BP 119/65
[2020-03-17 07:57] LABS: BASO # 0.1 x10^3/uL (0.0-0.2); BASO % 1 % (0-3); EOS # 0.1 x10^3/uL (0.0-0.7); EOS % 1 % (0-3); HEMATOCRIT 40.3 % (36.0-47.0); HEMOGLOBIN 13.5 g/dL (12.0-15.5); LYMPH # 3.6 x10^3/uL (1.0-4.8); LYMPH % 40 % (24-48); MEAN CORPUSCULAR HEMOGLOBIN 30 pg (25-35); MEAN CORPUSCULAR HGB CONC 34 g/dL (31-37); MEAN CORPUSCULAR VOLUME 88 fL (79-100); MONO # 0.6 x10^3/uL (0.0-1.1); MONO % 7 % (0-9); NEUT # 4.6 x10^3/uL (1.8-7.7); NEUT % 52 % (31-73); PLATELET COUNT 264 x10^3/uL (140-400); RED BLOOD COUNT 4.59 x10^6/uL (3.50-5.40); RED CELL DISTRIBUTION WIDTH 14.5 % (11.5-14.5); WHITE BLOOD COUNT 8.8 x10^3/uL (4.0-11.0)
[2020-03-17] MEDS: INSULIN LISPRO 300 UNITS/3 ML VIAL. SQ SCH ×4 (08:00→20:48)
[2020-03-17 08:13] LABS: CALCIUM 8.9 mg/dL (8.5-10.1); CREATININE 0.6 mg/dL (0.6-1.0); GFR 101.6; POTASSIUM 3.5 mmol/L (3.5-5.1)
[2020-03-17] MEDS: levETIRAcetam 500 MG TABLET PO SCH ×2 (08:44→20:48)
[2020-03-17] MEDS: FAMOTIDINE 20 MG TABLET. PO SCH ×2 (08:44→20:47)
[2020-03-17] MEDS: busPIRone 5 MG TABLET. PO SCH ×3 (08:45→20:48)
[2020-03-17] MEDS: CLOPIDOGREL BISULFATE 75 MG TABLET PO SCH (08:45)
[2020-03-17] MEDS: METOPROLOL TART IMMED RELEASE 25 MG TABLET. PO SCH ×2 (08:45→20:48)
[2020-03-17] MEDS: ASPIRIN CHEWABLE 81 MG TABLET. PO SCH (08:45)
[2020-03-17] MEDS: MULTIVITAMIN with MINERAL TABLET. PO SCH (08:45)
[2020-03-17] MEDS: THIAMINE 100 MG TABLET. PO SCH (08:45)
[2020-03-17] MEDS: CETIRIZINE HCL 10 MG TABLET. PO SCH (08:45)
[2020-03-17] MEDS: SERTRALINE 50 MG TABLET. PO SCH (08:45)
[2020-03-17] MEDS: FOLIC ACID 1 MG TABLET. PO SCH (08:45)
[2020-03-17 10:50] VITALS: BP 131/63
--- NOTE | 2020-03-17 11:47 | PDOC ---
PROGRESS NOTES Date of Service DATE: 03/17/20 TIME: 11:42 Assessment Problems Medical Problems: (1) Elevated troponin Status: Acute (2) Hypertensive urgency Status: Acute (3) Witnessed seizure-like activity Status: Acute Seizure activity, no recurrence Tiny area of acute ischemia in the left hippocampus on top of a massive left hemispheric stroke before, probably not clinically relevant Plan Rehabilitation modalities Continue levetiracetam at higher dose, 750 mg twice a day She is on aspirin, clopidogrel, and statin Await cardiology plans Return to retirement any time. Subjective Indicates no pain Objective Vital Signs Date Time Temp Pulse Resp B/P (MAP) Pulse Ox O2 Delivery O2 Flow Rate FiO2 03/17/20 10:50 98.3 91 16 131/63 (85) 97 Room Air 98.3 03/17/20 08:00 2.0 Intake and Output 03/17/20 07:00 Intake Total 350 ml Output Total 1 ml Balance 349 ml Intake Oral 350 ml Output Urine Total 1 ml # Voids 7 # Bowel Movements 1 PHYSICAL EXAM Alert. Expressive and receptive aphasia, can follow several commands, though PERRL. EOMI. CN: right central facial weakness. Muscle tone: increased on the right. Muscle strength: 2/5 right hemiparesis DTR: 2+ Plantar reflex: flexor Gait: not examined in bed. Sensory exam: no abnormal findings. No cerebellar signs elicited. Review of Relevant I have reviewed the following items kay (where applicable) has been applied. Labs Laboratory Tests Test 03/15/20 11:55 03/15/20 17:11 03/15/20 20:39 03/16/20 05:06 Glucose (Fingerstick) 116 mg/dL (70-99) 114 mg/dL (70-99) 123 mg/dL (70-99) White Blood Count 8.5 x10^3/uL (4.0-11.0) Red Blood Count 4.35 x10^6/uL (3.50-5.40) Hemoglobin 13.0 g/dL (12.0-15.5) Hematocrit 38.2 % (36.0-47.0) Mean Corpuscular Volume 88 fL (79-100) Mean Corpuscular Hemoglobin 30 pg (25-35) Mean Corpuscular Hemoglobin Concent 34 g/dL (31-37) Red Cell Distribution Width 14.6 % (11.5-14.5) Platelet Count 249 x10^3/uL (140-400) Neutrophils (%) (Auto) 55 % (31-73) Lymphocytes (%) (Auto) 37 % (24-48) Monocytes (%) (Auto) 7 % (0-9) Eosinophils (%) (Auto) 0 % (0-3) Basophils (%) (Auto) 1 % (0-3) Neutrophils # (Auto) 4.7 x10^3/uL (1.8-7.7) Lymphocytes # (Auto) 3.1 x10^3/uL (1.0-4.8) Monocytes # (Auto) 0.6 x10^3/uL (0.0-1.1) Eosinophils # (Auto) 0.0 x10^3/uL (0.0-0.7) Basophils # (Auto) 0.1 x10^3/uL (0.0-0.2) Sodium Level 143 mmol/L (136-145) Potassium Level 3.3 mmol/L (3.5-5.1) Chloride Level 106 mmol/L (98-107) Carbon Dioxide Level 28 mmol/L (21-32) Anion Gap 9 (6-14) Blood Urea Nitrogen 13 mg/dL (7-20) Creatinine 0.7 mg/dL (0.6-1.0) Estimated GFR (Cockcroft-Gault) 85.1 Glucose Level 105 mg/dL (70-99) Calcium Level 9.0 mg/dL (8.5-10.1) Test 03/16/20 07:34 03/16/20 11:55 03/16/20 17:04 03/16/20 20:53 Glucose (Fingerstick) 88 mg/dL (70-99) 122 mg/dL (70-99) 127 mg/dL (70-99) 116 mg/dL (70-99) Test 03/17/20 07:05 03/17/20 07:49 White Blood Count 8.8 x10^3/uL (4.0-11.0) Red Blood Count 4.59 x10^6/uL (3.50-5.40) Hemoglobin 13.5 g/dL (12.0-15.5) Hematocrit 40.3 % (36.0-47.0) Mean Corpuscular Volume 88 fL (79-100) Mean Corpuscular Hemoglobin 30 pg (25-35) Mean Corpuscular Hemoglobin Concent 34 g/dL (31-37) Red Cell Distribution Width 14.5 % (11.5-14.5) Platelet Count 264 x10^3/uL (140-400) Neutrophils (%) (Auto) 52 % (31-73) Lymphocytes (%) (Auto) 40 % (24-48) Monocytes (%) (Auto) 7 % (0-9) Eosinophils (%) (Auto) 1 % (0-3) Basophils (%) (Auto) 1 % (0-3) Neutrophils # (Auto) 4.6 x10^3/uL (1.8-7.7) Lymphocytes # (Auto) 3.6 x10^3/uL (1.0-4.8) Monocytes # (Auto) 0.6 x10^3/uL (0.0-1.1) Eosinophils # (Auto) 0.1 x10^3/uL (0.0-0.7) Basophils # (Auto) 0.1 x10^3/uL (0.0-0.2) Sodium Level 144 mmol/L (136-145) Potassium Level 3.5 mmol/L (3.5-5.1) Chloride Level 107 mmol/L (98-107) Carbon Dioxide Level 29 mmol/L (21-32) Anion Gap 8 (6-14) Blood Urea Nitrogen 13 mg/dL (7-20) Creatinine 0.6 mg/dL (0.6-1.0) Estimated GFR (Cockcroft-Gault) 101.6 Glucose Level 100 mg/dL (70-99) Calcium Level 8.9 mg/dL (8.5-10.1) Glucose (Fingerstick) 103 mg/dL (70-99) Laboratory Tests Test 03/16/20 11:55 03/16/20 17:04 03/16/20 20:53 03/17/20 07:05 Glucose (Fingerstick) 122 mg/dL (70-99) 127 mg/dL (70-99) 116 mg/dL (70-99) White Blood Count 8.8 x10^3/uL (4.0-11.0) Red Blood Count 4.59 x10^6/uL (3.50-5.40) Hemoglobin 13.5 g/dL (12.0-15.5) Hematocrit 40.3 % (36.0-47.0) Mean Corpuscular Volume 88 fL (79-100) Mean Corpuscular Hemoglobin 30 pg (25-35) Mean Corpuscular Hemoglobin Concent 34 g/dL (31-37) Red Cell Distribution Width 14.5 % (11.5-14.5) Platelet Count 264 x10^3/uL (140-400) Neutrophils (%) (Auto) 52 % (31-73) Lymphocytes (%) (Auto) 40 % (24-48) Monocytes (%) (Auto) 7 % (0-9) Eosinophils (%) (Auto) 1 % (0-3) Basophils (%) (Auto) 1 % (0-3) Neutrophils # (Auto) 4.6 x10^3/uL (1.8-7.7) Lymphocytes # (Auto) 3.6 x10^3/uL (1.0-4.8) Monocytes # (Auto) 0.6 x10^3/uL (0.0-1.1) Eosinophils # (Auto) 0.1 x10^3/uL (0.0-0.7) Basophils # (Auto) 0.1 x10^3/uL (0.0-0.2) Sodium Level 144 mmol/L (136-145) Potassium Level 3.5 mmol/L (3.5-5.1) Chloride Level 107 mmol/L (98-107) Carbon Dioxide Level 29 mmol/L (21-32) Anion Gap 8 (6-14) Blood Urea Nitrogen 13 mg/dL (7-20) Creatinine 0.6 mg/dL (0.6-1.0) Estimated GFR (Cockcroft-Gault) 101.6 Glucose Level 100 mg/dL (70-99) Calcium Level 8.9 mg/dL (8.5-10.1) Test 03/17/20 07:49 Glucose (Fingerstick) 103 mg/dL (70-99) Microbiology 03/13/20 Urine Culture - Final, Complete 03/13/20 Blood Culture - Preliminary, Resulted NO GROWTH AFTER 3 DAYS Medications Current Medications Sodium Chloride 1,000 ml @ 1,000 mls/hr 1X ONCE IV Last administered on 03/13/20at 13:30; Start 03/13/20 at 12:45; Stop 03/13/20 at 13:44; Status DC Lorazepam (Ativan Inj) 0.5 mg 1X ONCE IVP Last administered on 03/13/20at 13:20; Start 03/13/20 at 13:00; Stop 03/13/20 at 13:01; Status DC Aspirin (Aspirin Rectal Supp) 300 mg 1X ONCE NE Last administered on 03/13/20at 14:15; Start 03/13/20 at 14:15; Stop 03/13/20 at 14:16; Status DC Labetalol HCl (Normodyne Iv Push) 20 mg 1X ONCE IVP Last administered on 03/13/20at 14:20; Start 03/13/20 at 14:15; Stop 03/13/20 at 14:16; Status DC Ondansetron HCl (Zofran) 4 mg PRN Q8HRS PRN IV NAUSEA/VOMITING; Start 03/13/20 at 14:30; Stop 03/13/20 at 16:26; Status DC Insulin Human Lispro (HumaLOG) 0-5 UNITS TIDWMEALS SQ ; Start 03/13/20 at 17:00; Stop 03/13/20 at 16:28; Status DC Dextrose (Dextrose 50%-Water Syringe) 12.5 gm PRN Q15MIN PRN IV SEE COMMENTS; Start 03/13/20 at 14:30; Status Cancel Ondansetron HCl (Zofran) 4 mg PRN Q4HRS PRN IV NAUSEA/VOMITING; Start 03/13/20 at 16:30 Potassium Chloride/Water 100 ml @ 100 mls/hr Q1H IV Last administered on 03/13/20at 19:51; Start 03/13/20 at 17:00; Stop 03/13/20 at 18:59; Status DC Magnesium Sulfate 50 ml @ 25 mls/hr 1X ONCE IV Last administered on 03/13/20at 16:48; Start 03/13/20 at 17:00; Stop 03/13/20 at 18:59; Status DC Insulin Human Lispro (HumaLOG) 0-9 UNITS TIDWMEALHC SQ ; Start 03/13/20 at 17:00 Dextrose (Dextrose 50%-Water Syringe) 12.5 gm PRN Q15MIN PRN IV SEE COMMENTS; Start 03/13/20 at 16:30 Atorvastatin Calcium (Lipitor) 40 mg QHS PO Last administered on 03/16/20 2 1:55; Start 03/13/20 at 21:00 Sodium Chloride 1,000 ml @ 75 mls/hr 1X ONCE IV Last administered on 03/13/20at 18:53; Start 03/13/20 at 18:30; Stop 03/14/20 at 07:49; Status DC Aspirin (Aspirin Chewable) 81 mg DAILY PO Last administered on 03/17/20 08:45; Start 03/14/20 at 09:00 Buspirone HCl (Buspar) 5 mg TID PO Last administered on 03/17/20 08:45; Start 03/13/20 at 21:00 Donepezil HCl (Aricept) 10 mg HS PO Last administered on 03/16/20at 21:55; Start 03/13/20 at 21:00 Folic Acid (Folic Acid) 1 mg DAILY PO Last administered on 03/17/20 08:45; Start 03/14/20 at 09:00 Levetiracetam (Keppra) 500 mg BID PO ; Start 03/13/20 at 21:00; Stop 03/13/20 at 21:03; Status DC Polyethylene Glycol (miraLAX Powder BULK BOTTLE) 17 gm PRN DAILY PRN PO CONSTIPATION; Start 03/13/20 at 21:00 Thiamine Mononitrate (Vitamin B-1) 100 mg DAILY PO Last administered on 03/17/20 08:45; Start 03/14/20 at 09:00 Multivitamins (Thera M Plus) 1 tab DAILY PO Last administered on 03/17/20 08:45; Start 03/14/20 at 09:00 Guaifenesin (Robitussin Dm) 10 ml PRN Q6HRS PRN PO COUGH; Start 03/13/20 at 21:15 Cetirizine HCl (ZyrTEC) 10 mg DAILY PO Last administered on 03/17/20 08:45; Start 03/14/20 at 09:00 Sertraline HCl (Zoloft) 200 mg DAILY PO Last administered on 03/17/20 08:45; Start 9/5/20 at 09:00 Levetiracetam 750 mg/Dextrose 107.5 ml @ 420 mls/hr Q12HR IV Last administered on 03/14/20at 21:00; Start 03/13/20 at 21:00; Stop 03/14/20 at 23:17; Status DC Heparin Sodium (Porcine) (Heparin Sodium) 4,000 unit 1X ONCE IV Last administered on 03/14/20at 00:12; Start 03/13/20 at 23:45; Stop 03/14/20 at 19:05; Status DC Heparin Sodium/ Dextrose 250 ml @ 0 mls/hr CONT PRN IV PER PROTOCOL Last administered on 03/14/20at 00:28; Start 03/13/20 at 23:45; Stop 03/14/20 at 19:06; Status DC Heparin Sodium (Porcine) (Heparin Sodium) 2,200 unit PRN Q6HRS PRN IV FOR UFH LEVEL LESS THAN 0.2; Start 03/13/20 at 23:45; Stop 03/14/20 at 19:06; Status DC Info (Anti-Coagulation Monitoring By Pharmacy) 1 each PRN DAILY PRN MC SEE COMMENTS Last administered on 03/14/20at 15:59; Start 03/14/20 at 16:00; Stop 03/15/20 at 07:26; Status DC Levetiracetam (Keppra) 750 mg BID PO Last administered on 03/17/20at 08:44; St art 03/15/20 at 09:00 Metoprolol Tartrate (Lopressor) 12.5 mg BID PO Last administered on 03/17/20at 08:45; Start 03/15/20 at 12:00 Clopidogrel Bisulfate (Plavix) 75 mg DAILYWBKFT PO Last administered on 03/17/20at 08:45; Start 03/16/20 at 08:00 Clopidogrel Bisulfate (Plavix) 75 mg 1X ONCE PO Last administered on 03/15/20at 12:12; Start 03/15/20 at 12:00; Stop 03/15/20 at 12:01; Status DC Potassium Chloride (Klor-Con) 40 meq 1X PRN PO PER PROTOCOL Last administered on 03/16/20at 12:34; Start 03/16/20 at 11:00 Magnesium Oxide (Magnesium Oxide) 400 mg BID PO ; Start 03/16/20 at 21:00; Stop 03/16/20 at 10:54; Status DC Potassium Chloride/Water 100 ml @ 100 mls/hr Q1H IV ; Start 03/16/20 at 11:00; Stop 03/16/20 at 10:54; Status DC Magnesium Sulfate 50 ml @ 25 mls/hr Q24H IV ; Start 03/16/20 at 11:00; Stop 03/16/20 at 10:54; Status DC Potassium Chloride/Water 100 ml @ 100 mls/hr Q1H PRN IV low k; Start 03/16/20 at 11:00; Stop 03/16/20 at 10:54; Status DC Potassium Chloride (Klor-Con) 40 meq 1X PRN PRN PO PER PROTOCOL; Start 03/16/20 at 12:15 Magnesium Oxide (Magnesium Oxide) 400 mg PRN BID PRN PO SEE COMMENTS; Start 03/16/20 at 21:00 Potassium Chloride/Water 100 ml @ 100 mls/hr PRN Q1HR PRN IV SEE COMMENTS; Start 03/16/20 at 12:15 Magnesium Sulfate 50 ml @ 25 mls/hr PRN DAILY PRN IV SEE COMMENTS; Start 03/16/20 at 12:15 Potassium Chloride/Water 100 ml @ 100 mls/hr PRN Q1HR PRN IV SEE COMMENTS; St art 03/16/20 at 12:15 Famotidine (Pepcid) 20 mg BID PO Last administered on 03/17/20at 08:44; Start 03/16/20 at 13:00 Active Scripts Active Reported Robitussin Cough-Chest Dm Liq (Guaifenesin/Dextromethorphan) 237 Ml Liquid 10 Ml PO PRN Q8HRS PRN Robitussin Cough-Chest Dm Liq (Guaifenesin/Dextromethorphan) 237 Ml Liquid 10 Ml PO QHS Miralax (Polyethylene Glycol 3350) 119 Gm Powder 17 Gm PO PRN DAILY PRN dissolve in water Keppra (Levetiracetam) 500 Mg Tablet 500 Mg PO BID Centravites Tablet (Fa/Mv,Ca,Iron,Min/Lycopene/Lut) 1 Each Tablet 1 Each PO DAILY Buspirone Hcl 5 Mg Tablet 5 Mg PO TID Acetaminophen 325 Mg Tablet 650 Mg PO TID Tramadol Hcl 50 Mg Tablet 50 Mg PO Q6HRS PRN Vitamin B-1 (Thiamine Mononitrate) 100 Mg Tablet 100 Mg PO DAILY Zoloft (Sertraline Hcl) 100 Mg Tablet 200 Mg PO DAILY Loratadine 10 Mg Tablet 1 Tab PO DAILY Folic Acid 1 Mg Tablet 1 Tab PO DAILY Donepezil Hcl 10 Mg Tablet 10 Mg PO HS Aspirin 81 Mg Tab.chew 1 Tab PO DAILY Vitals/I & O Vital Sign - Last 24 Hours 03/16/20 03/16/20 03/16/20 03/16/20 15:00 19:00 20:00 21:56 Temp 98.3 99.0 98.3 99.0 Pulse 90 96 96 Resp 16 19 B/P (MAP) 112/57 (75) 126/60 (82) 126/60 Pulse Ox 100 94 O2 Delivery Room Air Room Air Room Air 03/16/20 03/17/20 03/17/20 03/17/20 22:42 02:34 07:00 08:00 Temp 99.1 97.8 98.0 99.1 97.8 98.0 Pulse 81 96 93 Resp 19 20 16 B/P (MAP) 130/63 (85) 135/63 (87) 119/65 (83) Pulse Ox 96 96 97 O2 Delivery Room Air Room Air Room Air Room Air O2 Flow Rate 2.0 03/17/20 03/17/20 08:45 10:50 Temp 98.3 98.3 Pulse 93 91 Resp 16 B/P (MAP) 119/65 131/63 (85) Pulse Ox 97 O2 Delivery Room Air Intake and Output 03/16/20 03/16/20 03/17/20 15:00 23:00 07:00 Intake Total 250 ml 100 ml Output Total 1 ml Balance 249 ml 100 ml Justicifation of Admission Dx: Justifications for Admission: Justification of Admission Dx: Yes NATALI JOHNSON MD Mar 17, 2020 11:47
--- NOTE | 2020-03-17 12:36 | PDOC ---
ELMO MARTINEZ PRACTICE ADVISOR 03/17/20 1236: CARDIO Progress Notes Date and Time Date of Service 03/17/20 Time of Evaluation 1210 Subjective Subjective: No Chest Pain, No shortness of breath Vitals Vitals Vital Signs Date Time Temp Pulse Resp B/P (MAP) Pulse Ox O2 Delivery O2 Flow Rate FiO2 03/17/20 10:50 98.3 91 16 131/63 (85) 97 Room Air 98.3 03/17/20 08:00 2.0 Weight Weight [ ] Input and Output Intake and Output Intake and Output 03/17/20 07:00 Intake Total 350 ml Output Total 1 ml Balance 349 ml Intake Oral 350 ml Output Urine Total 1 ml # Voids 7 # Bowel Movements 1 Laboratory Labs Laboratory Tests Test 03/16/20 17:04 03/16/20 20:53 03/17/20 07:05 03/17/20 07:49 Glucose (Fingerstick) 127 mg/dL (70-99) 116 mg/dL (70-99) 103 mg/dL (70-99) White Blood Count 8.8 x10^3/uL (4.0-11.0) Red Blood Count 4.59 x10^6/uL (3.50-5.40) Hemoglobin 13.5 g/dL (12.0-15.5) Hematocrit 40.3 % (36.0-47.0) Mean Corpuscular Volume 88 fL (79-100) Mean Corpuscular Hemoglobin 30 pg (25-35) Mean Corpuscular Hemoglobin Concent 34 g/dL (31-37) Red Cell Distribution Width 14.5 % (11.5-14.5) Platelet Count 264 x10^3/uL (140-400) Neutrophils (%) (Auto) 52 % (31-73) Lymphocytes (%) (Auto) 40 % (24-48) Monocytes (%) (Auto) 7 % (0-9) Eosinophils (%) (Auto) 1 % (0-3) Basophils (%) (Auto) 1 % (0-3) Neutrophils # (Auto) 4.6 x10^3/uL (1.8-7.7) Lymphocytes # (Auto) 3.6 x10^3/uL (1.0-4.8) Monocytes # (Auto) 0.6 x10^3/uL (0.0-1.1) Eosinophils # (Auto) 0.1 x10^3/uL (0.0-0.7) Basophils # (Auto) 0.1 x10^3/uL (0.0-0.2) Sodium Level 144 mmol/L (136-145) Potassium Level 3.5 mmol/L (3.5-5.1) Chloride Level 107 mmol/L (98-107) Carbon Dioxide Level 29 mmol/L (21-32) Anion Gap 8 (6-14) Blood Urea Nitrogen 13 mg/dL (7-20) Creatinine 0.6 mg/dL (0.6-1.0) Estimated GFR (Cockcroft-Gault) 101.6 Glucose Level 100 mg/dL (70-99) Calcium Level 8.9 mg/dL (8.5-10.1) Test 03/17/20 12:20 Glucose (Fingerstick) 82 mg/dL (70-99) Microbiology Micro Microbiology 03/13/20 Urine Culture - Final, Complete 03/13/20 Blood Culture - Preliminary, Resulted NO GROWTH AFTER 3 DAYS Physical Exam Chest: Symmetric Heart: S1S2, RRR, murmurs (3/6 systolic murmur ) Extremities: No Edema, Other (right hemiparesis ) Neurology: alert, oriented, follow commands, other (expressive aphasia ) Assessment Assessment 1. NSTEMI; trop peak 3.7. Possibly type II, demand ischemia 2. H/o CVA; ? new acute stroke. 3. Seizure 4. Hypertensive urgency; now controlled 5. Dyslipidemia; statin Recommendations Secondary prevention measures BP control Await echo If echo WNL, recommend conservative management. If abnormal, will contact DPOA and determine goals of care/consideration of further workup Supportive care Justicifation of Admission Dx: Justifications for Admission: Justification of Admission Dx: Yes NELSON BRENNAN MD 03/17/20 1251: CARDIO Progress Notes Plan Plan Pt. seen and examined. 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 Await echo. If echo WNL, plan for outpt stress testing. Continue plavix, metoprolol, asa, atorvastatin. Bp at goal. Thanks. ELMO MARTINEZ APRN Mar 17, 2020 12:36 NELSON BRENNAN MD Mar 17, 2020 12:51
--- NOTE | 2020-03-17 14:01 | PDOC ---
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 Pending echo, possible left heart cath depending on results Heparin drip for DVT prophylaxis Pepcid GI prophylaxis ADA diet Full code Discussed with RN and SW Surrogate decision maker is the History of Present Illness History of Present Illness 03/17/2020 No acute events reported overnight, case discussed with nursing staff patient in no acute distress no complaints during my visit, discussed with content management consultant will most likely will need to take the patient for a cardiac cath we will follow results of echocardiogram most likely significant MR given physical exam 03/16/2020 No acute events overnight. Tolerating diet. Patient seen and examined bedside. No new focal neurological deficits. Pending echo at this time. Patient's chart, labs, images were reviewed and discussed with RN 03/15/2020 Patient evaluated bedside, moving left arm spontaneously. Attempted to contact to discuss goals of care, no answer left voicemail. Agree with cardiology plan of care for heart cath if abnormal echo. Discussed with RN. 03/14/20 Patient is alert this morning, moving her left upper extremity. She only provides one-word answers, "yeah". Discussed with RN, patient did not pass her bedside swallow and speech therapy has been consulted. She remains n.p.o., and she is on heparin drip due to elevated troponins. Vitals Vitals Vital Signs Date Time Temp Pulse Resp B/P (MAP) Pulse Ox O2 Delivery O2 Flow Rate FiO2 03/17/20 10:50 98.3 91 16 131/63 (85) 97 Room Air 98.3 03/17/20 08:00 2.0 Physical Exam Physical Exam GEN: No apparent distress. Alert and oriented HEENT: Normal cephalic, atraumatic, external auditory canals are patent NECK: Supple, no JVD, no thyromegaly was noted LUNGS: Bilateral crackles HEART: RRR, S1, S2 present. Peripheral pulses intact, no obvious murmurs noted ABDOMEN: Soft, nontender. Positive bowel sounds, no organomegaly, normal bowel sounds EXTREMITIES: Right side residual hemiparesis. General: Alert, Cooperative, No acute distress Heart: Regular rate, Normal S1, Normal S2, Other (Systolic murmur best heard of the left parasternal border with radiation to the apex no radiation to the carotids) Lungs: Clear Abdomen: Normal bowel sounds, Soft, No tenderness, No hepatosplenomegaly, No masses Extremities: No clubbing, No cyanosis, No edema, Normal pulses, No tenderness/swelling Skin: No rashes, No breakdown, No significant lesion Labs LABS Laboratory Tests Test 03/16/20 17:04 03/16/20 20:53 03/17/20 07:05 03/17/20 07:49 Glucose (Fingerstick) 127 mg/dL (70-99) 116 mg/dL (70-99) 103 mg/dL (70-99) White Blood Count 8.8 x10^3/uL (4.0-11.0) Red Blood Count 4.59 x10^6/uL (3.50-5.40) Hemoglobin 13.5 g/dL (12.0-15.5) Hematocrit 40.3 % (36.0-47.0) Mean Corpuscular Volume 88 fL (79-100) Mean Corpuscular Hemoglobin 30 pg (25-35) Mean Corpuscular Hemoglobin Concent 34 g/dL (31-37) Red Cell Distribution Width 14.5 % (11.5-14.5) Platelet Count 264 x10^3/uL (140-400) Neutrophils (%) (Auto) 52 % (31-73) Lymphocytes (%) (Auto) 40 % (24-48) Monocytes (%) (Auto) 7 % (0-9) Eosinophils (%) (Auto) 1 % (0-3) Basophils (%) (Auto) 1 % (0-3) Neutrophils # (Auto) 4.6 x10^3/uL (1.8-7.7) Lymphocytes # (Auto) 3.6 x10^3/uL (1.0-4.8) Monocytes # (Auto) 0.6 x10^3/uL (0.0-1.1) Eosinophils # (Auto) 0.1 x10^3/uL (0.0-0.7) Basophils # (Auto) 0.1 x10^3/uL (0.0-0.2) Sodium Level 144 mmol/L (136-145) Potassium Level 3.5 mmol/L (3.5-5.1) Chloride Level 107 mmol/L (98-107) Carbon Dioxide Level 29 mmol/L (21-32) Anion Gap 8 (6-14) Blood Urea Nitrogen 13 mg/dL (7-20) Creatinine 0.6 mg/dL (0.6-1.0) Estimated GFR (Cockcroft-Gault) 101.6 Glucose Level 100 mg/dL (70-99) Calcium Level 8.9 mg/dL (8.5-10.1) Test 03/17/20 12:20 Glucose (Fingerstick) 82 mg/dL (70-99) Assessment and Plan Assessmemt and Plan Problems Medical Problems: (1) Elevated troponin Status: Acute (2) Hypertensive urgency Status: Acute (3) Witnessed seizure-like activity Status: Acute Comment Review of Relevant I have reviewed the following items kay (where applicable) has been applied. Labs Laboratory Tests Test 03/15/20 17:11 03/15/20 20:39 03/16/20 05:06 03/16/20 07:34 Glucose (Fingerstick) 114 mg/dL (70-99) 123 mg/dL (70-99) 88 mg/dL (70-99) White Blood Count 8.5 x10^3/uL (4.0-11.0) Red Blood Count 4.35 x10^6/uL (3.50-5.40) Hemoglobin 13.0 g/dL (12.0-15.5) Hematocrit 38.2 % (36.0-47.0) Mean Corpuscular Volume 88 fL (79-100) Mean Corpuscular Hemoglobin 30 pg (25-35) Mean Corpuscular Hemoglobin Concent 34 g/dL (31-37) Red Cell Distribution Width 14.6 % (11.5-14.5) Platelet Count 249 x10^3/uL (140-400) Neutrophils (%) (Auto) 55 % (31-73) Lymphocytes (%) (Auto) 37 % (24-48) Monocytes (%) (Auto) 7 % (0-9) Eosinophils (%) (Auto) 0 % (0-3) Basophils (%) (Auto) 1 % (0-3) Neutrophils # (Auto) 4.7 x10^3/uL (1.8-7.7) Lymphocytes # (Auto) 3.1 x10^3/uL (1.0-4.8) Monocytes # (Auto) 0.6 x10^3/uL (0.0-1.1) Eosinophils # (Auto) 0.0 x10^3/uL (0.0-0.7) Basophils # (Auto) 0.1 x10^3/uL (0.0-0.2) Sodium Level 143 mmol/L (136-145) Potassium Level 3.3 mmol/L (3.5-5.1) Chloride Level 106 mmol/L (98-107) Carbon Dioxide Level 28 mmol/L (21-32) Anion Gap 9 (6-14) Blood Urea Nitrogen 13 mg/dL (7-20) Creatinine 0.7 mg/dL (0.6-1.0) Estimated GFR (Cockcroft-Gault) 85.1 Glucose Level 105 mg/dL (70-99) Calcium Level 9.0 mg/dL (8.5-10.1) Test 03/16/20 11:55 03/16/20 17:04 03/16/20 20:53 03/17/20 07:05 Glucose (Fingerstick) 122 mg/dL (70-99) 127 mg/dL (70-99) 116 mg/dL (70-99) White Blood Count 8.8 x10^3/uL (4.0-11.0) Red Blood Count 4.59 x10^6/uL (3.50-5.40) Hemoglobin 13.5 g/dL (12.0-15.5) Hematocrit 40.3 % (36.0-47.0) Mean Corpuscular Volume 88 fL (79-100) Mean Corpuscular Hemoglobin 30 pg (25-35) Mean Corpuscular Hemoglobin Concent 34 g/dL (31-37) Red Cell Distribution Width 14.5 % (11.5-14.5) Platelet Count 264 x10^3/uL (140-400) Neutrophils (%) (Auto) 52 % (31-73) Lymphocytes (%) (Auto) 40 % (24-48) Monocytes (%) (Auto) 7 % (0-9) Eosinophils (%) (Auto) 1 % (0-3) Basophils (%) (Auto) 1 % (0-3) Neutrophils # (Auto) 4.6 x10^3/uL (1.8-7.7) Lymphocytes # (Auto) 3.6 x10^3/uL (1.0-4.8) Monocytes # (Auto) 0.6 x10^3/uL (0.0-1.1) Eosinophils # (Auto) 0.1 x10^3/uL (0.0-0.7) Basophils # (Auto) 0.1 x10^3/uL (0.0-0.2) Sodium Level 144 mmol/L (136-145) Potassium Level 3.5 mmol/L (3.5-5.1) Chloride Level 107 mmol/L (98-107) Carbon Dioxide Level 29 mmol/L (21-32) Anion Gap 8 (6-14) Blood Urea Nitrogen 13 mg/dL (7-20) Creatinine 0.6 mg/dL (0.6-1.0) Estimated GFR (Cockcroft-Gault) 101.6 Glucose Level 100 mg/dL (70-99) Calcium Level 8.9 mg/dL (8.5-10.1) Test 03/17/20 07:49 03/17/20 12:20 Glucose (Fingerstick) 103 mg/dL (70-99) 82 mg/dL (70-99) Laboratory Tests Test 03/16/20 17:04 03/16/20 20:53 03/17/20 07:05 03/17/20 07:49 Glucose (Fingerstick) 127 mg/dL (70-99) 116 mg/dL (70-99) 103 mg/dL (70-99) White Blood Count 8.8 x10^3/uL (4.0-11.0) Red Blood Count 4.59 x10^6/uL (3.50-5.40) Hemoglobin 13.5 g/dL (12.0-15.5) Hematocrit 40.3 % (36.0-47.0) Mean Corpuscular Volume 88 fL (79-100) Mean Corpuscular Hemoglobin 30 pg (25-35) Mean Corpuscular Hemoglobin Concent 34 g/dL (31-37) Red Cell Distribution Width 14.5 % (11.5-14.5) Platelet Count 264 x10^3/uL (140-400) Neutrophils (%) (Auto) 52 % (31-73) Lymphocytes (%) (Auto) 40 % (24-48) Monocytes (%) (Auto) 7 % (0-9) Eosinophils (%) (Auto) 1 % (0-3) Basophils (%) (Auto) 1 % (0-3) Neutrophils # (Auto) 4.6 x10^3/uL (1.8-7.7) Lymphocytes # (Auto) 3.6 x10^3/uL (1.0-4.8) Monocytes # (Auto) 0.6 x10^3/uL (0.0-1.1) Eosinophils # (Auto) 0.1 x10^3/uL (0.0-0.7) Basophils # (Auto) 0.1 x10^3/uL (0.0-0.2) Sodium Level 144 mmol/L (136-145) Potassium Level 3.5 mmol/L (3.5-5.1) Chloride Level 107 mmol/L (98-107) Carbon Dioxide Level 29 mmol/L (21-32) Anion Gap 8 (6-14) Blood Urea Nitrogen 13 mg/dL (7-20) Creatinine 0.6 mg/dL (0.6-1.0) Estimated GFR (Cockcroft-Gault) 101.6 Glucose Level 100 mg/dL (70-99) Calcium Level 8.9 mg/dL (8.5-10.1) Test 03/17/20 12:20 Glucose (Fingerstick) 82 mg/dL (70-99) Microbiology 03/13/20 Urine Culture - Final, Complete 03/13/20 Blood Culture - Preliminary, Resulted NO GROWTH AFTER 4 DAYS Medications Current Medications Sodium Chloride 1,000 ml @ 1,000 mls/hr 1X ONCE IV Last administered on 03/13/20at 13:30; Start 03/13/20 at 12:45; Stop 03/13/20 at 13:44; Status DC Lorazepam (Ativan Inj) 0.5 mg 1X ONCE IVP Last administered on 03/13/20at 13:20; Start 03/13/20 at 13:00; Stop 03/13/20 at 13:01; Status DC Aspirin (Aspirin Rectal Supp) 300 mg 1X ONCE MN Last administered on 03/13/20at 14:15; Start 03/13/20 at 14:15; Stop 03/13/20 at 14:16; Status DC Labetalol HCl (Normodyne Iv Push) 20 mg 1X ONCE IVP Last administered on 03/13/20at 14:20; Start 03/13/20 at 14:15; Stop 03/13/20 at 14:16; Status DC Ondansetron HCl (Zofran) 4 mg PRN Q8HRS PRN IV NAUSEA/VOMITING; Start 03/13/20 at 14:30; Stop 03/13/20 at 16:26; Status DC Insulin Human Lispro (HumaLOG) 0-5 UNITS TIDWMEALS SQ ; Start 03/13/20 at 17:00; Stop 03/13/20 at 16:28; Status DC Dextrose (Dextrose 50%-Water Syringe) 12.5 gm PRN Q15MIN PRN IV SEE COMMENTS; Start 03/13/20 at 14:30; Status Cancel Ondansetron HCl (Zofran) 4 mg PRN Q4HRS PRN IV NAUSEA/VOMITING; Start 03/13/20 at 16:30 Potassium Chloride/Water 100 ml @ 100 mls/hr Q1H IV Last administered on 03/13/20at 19:51; Start 03/13/20 at 17:00; Stop 03/13/20 at 18:59; Status DC Magnesium Sulfate 50 ml @ 25 mls/hr 1X ONCE IV Last administered on 03/13/20at 16:48; Start 03/13/20 at 17:00; Stop 03/13/20 at 18:59; Status DC Insulin Human Lispro (HumaLOG) 0-9 UNITS TIDWMEALHC SQ ; Start 03/13/20 at 17:00 Dextrose (Dextrose 50%-Water Syringe) 12.5 gm PRN Q15MIN PRN IV SEE COMMENTS; Start 03/13/20 at 16:30 Atorvastatin Calcium (Lipitor) 40 mg QHS PO Last administered on 03/16/20at 21:55; Start 03/13/20 at 21:00 Sodium Chloride 1,000 ml @ 75 mls/hr 1X ONCE IV Last administered on 03/13/20at 18:53; Start 03/13/20 at 18:30; Stop 03/14/20 at 07:49; Status DC Aspirin (Aspirin Chewable) 81 mg DAILY PO Last administered on 03/17/20 08:45; Start 03/14/20 at 09:00 Buspirone HCl (Buspar) 5 mg TID PO Last administered on 03/17/20 08:45; Start 03/13/20 at 21:00 Donepezil HCl (Aricept) 10 mg HS PO Last administered on 03/16/20at 21:55; Start 03/13/20 at 21:00 Folic Acid (Folic Acid) 1 mg DAILY PO Last administered on 03/17/20 08:45; Start 03/14/20 at 09:00 Levetiracetam (Keppra) 500 mg BID PO ; Start 03/13/20 at 21:00; Stop 03/13/20 at 21:03; Status DC Polyethylene Glycol (miraLAX Powder BULK BOTTLE) 17 gm PRN DAILY PRN PO CONSTIPATION; Start 03/13/20 at 21:00 Thiamine Mononitrate (Vitamin B-1) 100 mg DAILY PO Last administered on 03/17/20 08:45; Start 03/14/20 at 09:00 Multivitamins (Thera M Plus) 1 tab DAILY PO Last administered on 03/17/20 08:45; Start 03/14/20 at 09:00 Guaifenesin (Robitussin Dm) 10 ml PRN Q6HRS PRN PO COUGH; Start 03/13/20 at 21:15 Cetirizine HCl (ZyrTEC) 10 mg DAILY PO Last administered on 03/17/20 08:45; Start 03/14/20 at 09:00 Sertraline HCl (Zoloft) 200 mg DAILY PO Last administered on 03/17/20 08:45; Start 03/14/20 at 09:00 Levetiracetam 750 mg/Dextrose 107.5 ml @ 420 mls/hr Q12HR IV Last administered on 03/14/20 21:00; Start 03/13/20 at 21:00; Stop 03/14/20 at 23:17; Status DC Heparin Sodium (Porcine) (Heparin Sodium) 4,000 unit 1X ONCE IV Last administered on 03/14/20at 00:12; Start 03/13/20 at 23:45; Stop 03/14/20 at 19:05; Status DC Heparin Sodium/ Dextrose 250 ml @ 0 mls/hr CONT PRN IV PER PROTOCOL Last administered on 03/14/20at 00:28; Start 03/13/20 at 23:45; Stop 03/14/20 at 19:06; Status DC Heparin Sodium (Porcine) (Heparin Sodium) 2,200 unit PRN Q6HRS PRN IV FOR UFH LEVEL LESS THAN 0.2; Start 03/13/20 at 23:45; Stop 03/14/20 at 19:06; Status DC Info (Anti-Coagulation Monitoring By Pharmacy) 1 each PRN DAILY PRN MC SEE COMMENTS Last administered on 03/14/20at 15:59; Start 03/14/20 at 16:00; Stop 03/15/20 at 07:26; Status DC Levetiracetam (Keppra) 750 mg BID PO Last administered on 03/17/20at 08:44; Start 03/15/20 at 09:00 Metoprolol Tartrate (Lopressor) 12.5 mg BID PO Last administered on 03/17/20at 08:45; Start 03/15/20 at 12:00 Clopidogrel Bisulfate (Plavix) 75 mg DAILYWBKFT PO Last administered on 03/17/20at 08:45; Start 03/16/20 at 08:00 Clopidogrel Bisulfate (Plavix) 75 mg 1X ONCE PO Last administered on 03/15/20at 12:12; Start 03/15/20 at 12:00; Stop 03/15/20 at 12:01; Status DC Potassium Chloride (Klor-Con) 40 meq 1X PRN PO PER PROTOCOL Last administered on 03/16/20at 12:34; Start 03/16/20 at 11:00 Magnesium Oxide (Magnesium Oxide) 400 mg BID PO ; Start 03/16/20 at 21:00; Stop 03/16/20 at 10:54; Status DC Potassium Chloride/Water 100 ml @ 100 mls/hr Q1H IV ; Start 03/16/20 at 11:00; Stop 03/16/20 at 10:54; Status DC Magnesium Sulfate 50 ml @ 25 mls/hr Q24H IV ; Start 03/16/20 at 11:00; Stop 03/16/20 at 10:54; Status DC Potassium Chloride/Water 100 ml @ 100 mls/hr Q1H PRN IV low k; Start 03/16/20 at 11:00; Stop 03/16/20 at 10:54; Status DC Potassium Chloride (Klor-Con) 40 meq 1X PRN PRN PO PER PROTOCOL; Start 03/16/20 at 12:15 Magnesium Oxide (Magnesium Oxide) 400 mg PRN BID PRN PO SEE COMMENTS; Start 03/16/20 at 21:00 Potassium Chloride/Water 100 ml @ 100 mls/hr PRN Q1HR PRN IV SEE COMMENTS; Start 03/16/20 at 12:15 Magnesium Sulfate 50 ml @ 25 mls/hr PRN DAILY PRN IV SEE COMMENTS; Start 03/16/20 at 12:15 Potassium Chloride/Water 100 ml @ 100 mls/hr PRN Q1HR PRN IV SEE COMMENTS; Start 03/16/20 at 12:15 Famotidine (Pepcid) 20 mg BID PO Last administered on 03/17/20at 08:44; Start 03/16/20 at 13:00 Active Scripts Active Reported Robitussin Cough-Chest Dm Liq (Guaifenesin/Dextromethorphan) 237 Ml Liquid 10 Ml PO PRN Q8HRS PRN Robitussin Cough-Chest Dm Liq (Guaifenesin/Dextromethorphan) 237 Ml Liquid 10 Ml PO QHS Miralax (Polyethylene Glycol 3350) 119 Gm Powder 17 Gm PO PRN DAILY PRN dissolve in water Keppra (Levetiracetam) 500 Mg Tablet 500 Mg PO BID Centravites Tablet (Fa/Mv,Ca,Iron,Min/Lycopene/Lut) 1 Each Tablet 1 Each PO DAILY Buspirone Hcl 5 Mg Tablet 5 Mg PO TID Acetaminophen 325 Mg Tablet 650 Mg PO TID Tramadol Hcl 50 Mg Tablet 50 Mg PO Q6HRS PRN Vitamin B-1 (Thiamine Mononitrate) 100 Mg Tablet 100 Mg PO DAILY Zoloft (Sertraline Hcl) 100 Mg Tablet 200 Mg PO DAILY Loratadine 10 Mg Tablet 1 Tab PO DAILY Folic Acid 1 Mg Tablet 1 Tab PO DAILY Donepezil Hcl 10 Mg Tablet 10 Mg PO HS Aspirin 81 Mg Tab.chew 1 Tab PO DAILY Vitals/I & O Vital Sign - Last 24 Hours 03/16/20 03/16/20 03/16/20 03/16/20 15:00 19:00 20:00 21:56 Temp 98.3 99.0 98.3 99.0 Pulse 90 96 96 Resp 16 19 B/P (MAP) 112/57 (75) 126/60 (82) 126/60 Pulse Ox 100 94 O2 Delivery Room Air Room Air Room Air 03/16/20 03/17/20 03/17/20 03/17/20 22:42 02:34 07:00 08:00 Temp 99.1 97.8 98.0 99.1 97.8 98.0 Pulse 81 96 93 Resp 19 20 16 B/P (MAP) 130/63 (85) 135/63 (87) 119/65 (83) Pulse Ox 96 96 97 O2 Delivery Room Air Room Air Room Air Room Air O2 Flow Rate 2.0 03/17/20 03/17/20 08:45 10:50 Temp 98.3 98.3 Pulse 93 91 Resp 16 B/P (MAP) 119/65 131/63 (85) Pulse Ox 97 O2 Delivery Room Air Intake and Output 03/16/20 03/16/20 03/17/20 15:00 23:00 07:00 Intake Total 250 ml 100 ml Output Total 1 ml Balance 249 ml 100 ml Justicifation of Admission Dx: Justifications for Admission: Justification of Admission Dx: Yes ORAL ZABALA MD Mar 17, 2020 14:01
--- NOTE | 2020-03-17 14:10 | CARD ---
MR#: [id number] Date of Study: 03/17/2020 Ordering Physician: SCHUYLER VARGAS, Referring Physician: SCHUYLER VARGAS, Tech: Betsy Golden APPROVED REPORT EXAM: Two-dimensional and M-mode echocardiogram with Doppler and color Doppler. Other Information Quality : AverageHR: 79bpm Technically limited study due to patient supine INDICATION Syncope Non STEMI RISK FACTORS Hypertension Hyperlipidemia Diabetes 2D DIMENSIONS RVDd3.7 (2.9-3.5cm)Left Atrium(2D)2.8 (1.6-4.0cm) IVSd0.9 (0.7-1.1cm)Aortic Root(2D)3.0 (2.0-3.7cm) LVDd4.6 (3.9-5.9cm)LVOT Diameter2.1 (1.8-2.4cm) PWd0.8 (0.7-1.1cm)LVDs3.4 (2.5-4.0cm) FS (%) 26.1 %SV49.9 ml LVEF(%)51.3 (>50%) Aortic Valve AoV Peak Chris.123.0cm/sAoV VTI23.4cm AO Peak GR.6.1mmHgLVOT VTI 17.53cm AO Mean GR.4mmHg Mitral Valve MV E Ujhdzfjk398.8cm/sMV E Peak Gr.114mmHg MV DECEL [id number] A Jbefxqbl585.1cm/s MV E Mean Gr.4mmHgE/A Ratio1.3 TDI Lateral E' P. V5.02cm/sMedial E' P. V5.08cm/s E/Lateral E'28.2E/Medial E'27.9 Tricuspid Valve TR P. [id number]/sRAP [id number] TR Peak Gr.28tvBdLIKR55pzOq Pulmonary Vein S1 Omuxbmax30.5cm/sS2 Grlzvwqj68.82cm/s D2 Dqdovbum64.8cm/sPVa [id number] LEFT VENTRICLE The left ventricle is normal size. There is normal left ventricular wall thickness. The left ventricu lar systolic function is normal and the ejection fraction is within normal range. The Ejection Fracti on is 50-55%. There is normal LV segmental wall motion. Transmitral Doppler flow pattern is Grade II- pseudonormal filling dynamics. RIGHT VENTRICLE The right ventricle is normal size. There is normal right ventricular wall thickness. The right ventr icular systolic function is normal. ATRIA The left atrium is borderline dilated. The right atrium size is normal. The interatrial septum is int act with no evidence for an atrial septal defect or patent foramen ovale as noted on 2-D or Doppler i maging. AORTIC VALVE The aortic valve is normal in structure and function. Doppler and Color Flow revealed no significant aortic regurgitation. There is no significant aortic valvular stenosis. Calculated aortic valve area is 2.62 cm2 with maximum pressure gradient of 6 mmHg and mean pressure gradient of 4 mmHg. MITRAL VALVE The mitral valve is normal in structure and function. There is no evidence of mitral valve prolapse. There is no mitral valve stenosis. Maximum pressure gradient of 6.41 mmHg and mean pressure gradient of 3.57 mmHg. Doppler and Color-flow revealed mild mitral regurgitation. TRICUSPID VALVE The tricuspid valve is normal in structure and function. Doppler and Color Flow revealed trace tricus pid regurgitation with an estimated PAP of 27 mmHg. There is no tricuspid valve stenosis. PULMONIC VALVE The pulmonic valve is not well visualized. Doppler and Color Flow revealed trace pulmonic valvular re gurgitation. GREAT VESSELS The aortic root is normal in size. The ascending aorta is normal in size. The IVC is normal in size a nd collapses >50% with inspiration. PERICARDIAL EFFUSION There is a trace pericardial effusion. Critical Notification Critical Value: No <Conclusion> The left ventricular systolic function is normal and the ejection fraction is within normal range. Th e Ejection Fraction is 50-55%. There is normal LV segmental wall motion. Doppler and Color-flow revealed mild mitral regurgitation. Signed by : Denzel Heard, Electronically Approved : 03/17/2020 14:09:20
[2020-03-17 15:00] VITALS: BP 128/65
[2020-03-17 19:00] VITALS: BP 131/59
[2020-03-17] MEDS: ATORVASTATIN CALCIUM 40 MG TABLET. PO SCH (20:47)
[2020-03-17] MEDS: DONEPEZIL HCL 10 MG TABLET. PO SCH (20:48)
[2020-03-17 23:00] VITALS: BP 117/69
[2020-03-18 03:11] VITALS: BP 110/57
[2020-03-18 07:00] VITALS: BP 109/53
[2020-03-18 07:05] LABS: BASO # 0.1 x10^3/uL (0.0-0.2); BASO % 1 % (0-3); EOS # 0.1 x10^3/uL (0.0-0.7); EOS % 1 % (0-3); HEMATOCRIT 42.7 % (36.0-47.0); HEMOGLOBIN 14.3 g/dL (12.0-15.5); LYMPH # 3.3 x10^3/uL (1.0-4.8); LYMPH % 38 % (24-48); MEAN CORPUSCULAR HEMOGLOBIN 30 pg (25-35); MEAN CORPUSCULAR HGB CONC 34 g/dL (31-37); MEAN CORPUSCULAR VOLUME 89 fL (79-100); MONO # 0.7 x10^3/uL (0.0-1.1); MONO % 7 % (0-9); NEUT # 4.7 x10^3/uL (1.8-7.7); NEUT % 53 % (31-73); PLATELET COUNT 257 x10^3/uL (140-400); RED BLOOD COUNT 4.81 x10^6/uL (3.50-5.40); RED CELL DISTRIBUTION WIDTH 14.4 % (11.5-14.5); WHITE BLOOD COUNT 8.9 x10^3/uL (4.0-11.0)
[2020-03-18 07:11] LABS: CALCIUM 9.3 mg/dL (8.5-10.1); CREATININE 0.6 mg/dL (0.6-1.0); GFR 101.6; POTASSIUM 3.9 mmol/L (3.5-5.1)
[2020-03-18] MEDS ORDERED: ATOR40TA59 PO (07:44)
[2020-03-18] MEDS ORDERED: CLOP75TA PO (07:44)
[2020-03-18] MEDS ORDERED: BUSP5TAB PO (07:44)
[2020-03-18] MEDS ORDERED: METO25TA4 PO (07:44)
[2020-03-18] MEDS ORDERED: TRAM50TA PO (07:44)
--- NOTE | 2020-03-18 07:45 | SNU/HH DC ---
DISCHARGE ORDERS DISCHARGE INFORMATION: DISCHARGE DATE: Mar 18, 2020 FINAL DIAGNOSIS Problems Medical Problems: (1) Elevated troponin Status: Acute (2) Hypertensive urgency Status: Acute (3) Witnessed seizure-like activity Status: Acute CONDITION ON DISCHARGE: Stable CODE STATUS: Code Status: Full FPC: SNF STAY <30 DAYS: Yes POST DISCHARGE ORDERS: DIET AFTER DISCHARGE: Cardiac TREATMENT/EQUIPMENT ORDERS: Physical Therapy For: Evalulation/Treatment Occupational Therapy For: Evaluation/Treatment DISCHARGE MEDICATIONS: Home Meds Active Scripts Metoprolol Tartrate (METOPROLOL TARTRATE) 25 Mg Tablet, 12.5 MG PO BID for rate control for 30 Days, #30 TAB Prov:ORAL ZABALA MD 03/18/20 Atorvastatin Calcium (ATORVASTATIN CALCIUM) 40 Mg Tablet, 40 MG PO QHS for dyslipidemia for 30 Days, #30 TAB Prov:ORAL ZABALA MD 03/18/20 Clopidogrel Bisulfate (CLOPIDOGREL) 75 Mg Tablet, 75 MG PO DAILYWBKFT for antiplatelet for 30 Days, #30 TAB Prov:ORAL ZABALA MD 03/18/20 Buspirone Hcl (BUSPIRONE HCL) 5 Mg Tablet, 5 MG PO TID for ANXIETY for 30 Days, #90 TAB Prov:ORAL ZABALA MD 03/18/20 Tramadol Hcl (TRAMADOL HCL) 50 Mg Tablet, 50 MG PO Q6HRS PRN for PAIN for 5 Days, #20 TAB Prov:ORAL ZABALA MD 03/18/20 Reported Medications Guaifenesin/Dextromethorphan (Robitussin Cough-Chest Dm Liq) 237 Ml Liquid, 10 ML PO PRN Q8HRS PRN for COUGH, LIQUID 03/13/20 Guaifenesin/Dextromethorphan (Robitussin Cough-Chest Dm Liq) 237 Ml Liquid, 10 ML PO QHS for COUGH, LIQUID 03/13/20 Polyethylene Glycol 3350 (MIRALAX) 119 Gm Powder, 17 GM PO PRN DAILY PRN for CONSTIPATION, #255 GM 0 Refills dissolve in water 03/13/20 Levetiracetam (KEPPRA) 500 Mg Tablet, 500 MG PO BID for SEIZURES, TAB 03/13/20 Fa/Mv,Ca,Iron,Min/Lycopene/Lut (CENTRAVITES TABLET) 1 Each Tablet, 1 EACH PO DAILY for , TAB 03/13/20 Acetaminophen (ACETAMINOPHEN) 325 Mg Tablet, 650 MG PO TID for PAIN, TAB 03/13/20 Thiamine Mononitrate (VITAMIN B-1) 100 Mg Tablet, 100 MG PO DAILY, TAB 02/24/19 Sertraline Hcl (ZOLOFT) 100 Mg Tablet, 200 MG PO DAILY for ANTI-DEPRESSANT, TAB 0 Refills 02/24/19 Loratadine (LORATADINE) 10 Mg Tablet, 1 TAB PO DAILY, #30 TAB 5 Refills 02/24/19 Folic Acid (FOLIC ACID) 1 Mg Tablet, 1 TAB PO DAILY, #90 TAB 1 Refill 02/24/19 Donepezil Hcl (DONEPEZIL HCL) 10 Mg Tablet, 10 MG PO HS, TAB 02/24/19 Aspirin (ASPIRIN) 81 Mg Tab.chew, 1 TAB PO DAILY, #30 TAB 3 Refills 02/24/19 ORAL ZABALA MD Mar 18, 2020 07:45
--- NOTE | 2020-03-18 07:50 | PDOC3 ---
Discharge Summary Visit Information Date of Admission: Mar 13, 2020 Date of Discharge: Mar 18, 2020 Admitting Diagnosis Comment: Seizures - noted twice 2 today. Was previously noted on 02/24/19 which was her initial onset. Ativan 1-2 mg IV PRN q4-6h if has further seizures, Keppra 500 mg IV q12h, or PO if can swallow, seizure precautions, OT/PT. Neurology consulted Metabolic encephalopathy - likely 2/2 seizure, will monitor Elevated troponin - will trend, likely demand ischemia from seizures. 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 Right side residual hemiparesis Brief Hospital Course Allergies Allergies Coded Allergies Type Severity Reaction Last Updated Verified Sulfa (Sulfonamide Antibiotics) Allergy Severe Anaphylaxis 07/22/14 Yes Vital Signs Vital Signs Date Time Temp Pulse Resp B/P (MAP) Pulse Ox O2 Delivery O2 Flow Rate FiO2 03/18/20 03:11 97.8 83 19 110/57 (74) 96 Room Air 97.8 03/17/20 08:00 2.0 Lab Results Laboratory Tests Test 03/16/20 11:55 03/16/20 17:04 03/16/20 20:53 03/17/20 07:05 Glucose (Fingerstick) 122 mg/dL (70-99) 127 mg/dL (70-99) 116 mg/dL (70-99) White Blood Count 8.8 x10^3/uL (4.0-11.0) Red Blood Count 4.59 x10^6/uL (3.50-5.40) Hemoglobin 13.5 g/dL (12.0-15.5) Hematocrit 40.3 % (36.0-47.0) Mean Corpuscular Volume 88 fL (79-100) Mean Corpuscular Hemoglobin 30 pg (25-35) Mean Corpuscular Hemoglobin Concent 34 g/dL (31-37) Red Cell Distribution Width 14.5 % (11.5-14.5) Platelet Count 264 x10^3/uL (140-400) Neutrophils (%) (Auto) 52 % (31-73) Lymphocytes (%) (Auto) 40 % (24-48) Monocytes (%) (Auto) 7 % (0-9) Eosinophils (%) (Auto) 1 % (0-3) Basophils (%) (Auto) 1 % (0-3) Neutrophils # (Auto) 4.6 x10^3/uL (1.8-7.7) Lymphocytes # (Auto) 3.6 x10^3/uL (1.0-4.8) Monocytes # (Auto) 0.6 x10^3/uL (0.0-1.1) Eosinophils # (Auto) 0.1 x10^3/uL (0.0-0.7) Basophils # (Auto) 0.1 x10^3/uL (0.0-0.2) Sodium Level 144 mmol/L (136-145) Potassium Level 3.5 mmol/L (3.5-5.1) Chloride Level 107 mmol/L (98-107) Carbon Dioxide Level 29 mmol/L (21-32) Anion Gap 8 (6-14) Blood Urea Nitrogen 13 mg/dL (7-20) Creatinine 0.6 mg/dL (0.6-1.0) Estimated GFR (Cockcroft-Gault) 101.6 Glucose Level 100 mg/dL (70-99) Calcium Level 8.9 mg/dL (8.5-10.1) Test 03/17/20 07:49 03/17/20 12:20 03/17/20 17:01 03/17/20 20:47 Glucose (Fingerstick) 103 mg/dL (70-99) 82 mg/dL (70-99) 91 mg/dL (70-99) 112 mg/dL (70-99) Test 03/18/20 06:16 03/18/20 07:34 White Blood Count 8.9 x10^3/uL (4.0-11.0) Red Blood Count 4.81 x10^6/uL (3.50-5.40) Hemoglobin 14.3 g/dL (12.0-15.5) Hematocrit 42.7 % (36.0-47.0) Mean Corpuscular Volume 89 fL (79-100) Mean Corpuscular Hemoglobin 30 pg (25-35) Mean Corpuscular Hemoglobin Concent 34 g/dL (31-37) Red Cell Distribution Width 14.4 % (11.5-14.5) Platelet Count 257 x10^3/uL (140-400) Neutrophils (%) (Auto) 53 % (31-73) Lymphocytes (%) (Auto) 38 % (24-48) Monocytes (%) (Auto) 7 % (0-9) Eosinophils (%) (Auto) 1 % (0-3) Basophils (%) (Auto) 1 % (0-3) Neutrophils # (Auto) 4.7 x10^3/uL (1.8-7.7) Lymphocytes # (Auto) 3.3 x10^3/uL (1.0-4.8) Monocytes # (Auto) 0.7 x10^3/uL (0.0-1.1) Eosinophils # (Auto) 0.1 x10^3/uL (0.0-0.7) Basophils # (Auto) 0.1 x10^3/uL (0.0-0.2) Sodium Level 144 mmol/L (136-145) Potassium Level 3.9 mmol/L (3.5-5.1) Chloride Level 108 mmol/L (98-107) Carbon Dioxide Level 27 mmol/L (21-32) Anion Gap 9 (6-14) Blood Urea Nitrogen 18 mg/dL (7-20) Creatinine 0.6 mg/dL (0.6-1.0) Estimated GFR (Cockcroft-Gault) 101.6 Glucose Level 105 mg/dL (70-99) Calcium Level 9.3 mg/dL (8.5-10.1) Glucose (Fingerstick) 105 mg/dL (70-99) Laboratory Tests Test 03/17/20 07:49 03/17/20 12:20 03/17/20 17:01 03/17/20 20:47 Glucose (Fingerstick) 103 mg/dL (70-99) 82 mg/dL (70-99) 91 mg/dL (70-99) 112 mg/dL (70-99) Test 03/18/20 06:16 03/18/20 07:34 White Blood Count 8.9 x10^3/uL (4.0-11.0) Red Blood Count 4.81 x10^6/uL (3.50-5.40) Hemoglobin 14.3 g/dL (12.0-15.5) Hematocrit 42.7 % (36.0-47.0) Mean Corpuscular Volume 89 fL (79-100) Mean Corpuscular Hemoglobin 30 pg (25-35) Mean Corpuscular Hemoglobin Concent 34 g/dL (31-37) Red Cell Distribution Width 14.4 % (11.5-14.5) Platelet Count 257 x10^3/uL (140-400) Neutrophils (%) (Auto) 53 % (31-73) Lymphocytes (%) (Auto) 38 % (24-48) Monocytes (%) (Auto) 7 % (0-9) Eosinophils (%) (Auto) 1 % (0-3) Basophils (%) (Auto) 1 % (0-3) Neutrophils # (Auto) 4.7 x10^3/uL (1.8-7.7) Lymphocytes # (Auto) 3.3 x10^3/uL (1.0-4.8) Monocytes # (Auto) 0.7 x10^3/uL (0.0-1.1) Eosinophils # (Auto) 0.1 x10^3/uL (0.0-0.7) Basophils # (Auto) 0.1 x10^3/uL (0.0-0.2) Sodium Level 144 mmol/L (136-145) Potassium Level 3.9 mmol/L (3.5-5.1) Chloride Level 108 mmol/L (98-107) Carbon Dioxide Level 27 mmol/L (21-32) Anion Gap 9 (6-14) Blood Urea Nitrogen 18 mg/dL (7-20) Creatinine 0.6 mg/dL (0.6-1.0) Estimated GFR (Cockcroft-Gault) 101.6 Glucose Level 105 mg/dL (70-99) Calcium Level 9.3 mg/dL (8.5-10.1) Glucose (Fingerstick) 105 mg/dL (70-99) Brief Hospital Course History of Present Illness Ms Griffin 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 She presented to ED approximately 4 hours after having a witnessed seizure at her SNF. Notably confused with new left-sided facial droop and left sided weak ness. At baseline has right sided weakness from a large left MCA territory infarct in 09/2017, and is basically non-verbal, but does normally follow most commands and visual prompting. Per EMS the patient is confused and not able to follow commands, which is not her baseline. She is not able to use her left side. EKG sinus tachycardia, no ST segment changes or T wave inversions. Labs significant for WBC 17, Hb 14.4, platelets 336, INR 1.2, troponin 0 0.145, NA 138, K3.3, BUN 13, CR 1, glucose 288, Mg 1.8. Lactate 3.9. CT head negative for acute infarct, Chronic infarcts in the left frontal, temporal and parietal lobes with encephalomalacia and some compensatory enlargement of the left lateral ventricular system On repeat evaluation after 30 minutes she is moving her left side and occasionally answers "yeah" to questions. 03/17/2020 No acute events reported overnight, case discussed with nursing staff patient in no acute distress no complaints during my visit, discussed with benefits sales consultant will most likely will need to take the patient for a cardiac cath we will follow results of echocardiogram most likely significant MR given physical exam 03/16/2020 No acute events overnight. Tolerating diet. Patient seen and examined bedside. No new focal neurological deficits. Pending echo at this time. Patient's chart, labs, images were reviewed and discussed with RN 03/15/2020 Patient evaluated bedside, moving left arm spontaneously. Attempted to contact to discuss goals of care, no answer left voicemail. Agree with cardiology plan of care for heart cath if abnormal echo. Discussed with RN. 03/14/20 Patient is alert this morning, moving her left upper extremity. She only provides one-word answers, "yeah". Discussed with RN, patient did not pass her bedside swallow and speech therapy has been consulted. She remains n.p.o., and she is on heparin drip due to elevated troponins. Patient did not have further episodes of seizure like activity she was deemed appropriate for discharge from the neurological standpoint of view and Keppra dose was adjusted to 750 mg twice a day and recommendation was to be on aspirin Plavix and statin therapy. From the neurological standpoint of view. She was evaluated by Dr. Morales with the following recommendations: Seizure activity, no recurrence Tiny area of acute ischemia in the left hippocampus on top of a massive left hemispheric stroke before, probably not clinically relevant Plan Rehabilitation modalities Continue levetiracetam at higher dose, 750 mg twice a day She is on aspirin, clopidogrel, and statin Await cardiology plans Return to custodial any time. Echocardiogram was done as part of her work-up with the following results: <Conclusion> The left ventricular systolic function is normal and the ejection fraction is within normal range. The Ejection Fraction is 50-55%. There is normal LV segmental wall motion. Doppler and Color-flow revealed mild mitral regurgitation. Signed by : Denzel Heard, Electronically Approved : 03/17/2020 14:09:20 Physical exam General: Alert, Cooperative, No acute distress Heart: Regular rate, Normal S1, Normal S2, Other (Systolic murmur best heard of the left parasternal border with radiation to the apex no radiation to the carotids) Lungs: Clear Abdomen: Normal bowel sounds, Soft, No tenderness, No hepatosplenomegaly, No masses Assessment Assessment Images CT head: Ventricular systems show some asymmetric dilatation of the left ventricular system consistent with some compensatory enlargement due to the large area of encephalomalacia involving the left frontal, parietal and temporal lobes from chronic infarct. There continues to be associated calcification at the infarct site. No midline shift is seen. No new sites of hemorrhage, infarct or masses are seen. No abnormalities of seen at the orbits. There is a lesion probably representing a mucous retention cyst in the right maxillary antrum measuring approximately 2.2 cm in greatest dimension. The remaining paranasal sinuses and mastoid air cells are clear. No acute skull abnormality is seen. IMPRESSION: No acute intracranial abnormality seen. Chronic infarcts in the left frontal, temporal and parietal lobes with encephalomalacia and some compensatory enlargement of the left lateral ventricular system. Mucous retention cyst in the right maxillary antrum. Discharge Information Condition at Discharge: Improved Follow Up: Weeks Disposition/Orders: D/C to Home Scheduled Acetaminophen (Acetaminophen) 325 Mg Tablet, 650 MG PO TID for PAIN, (Reported) Entered as Reported by: Aleah Tejada on 03/13/201850 Last Taken: 650 on Unknown Date & Time Last Action: New Order on 03/13/201850 by Aleah Tejada Aspirin (Aspirin) 81 Mg Tab.chew, 1 TAB PO DAILY, #30 Ref 3 (Reported) Entered as Reported by: SANAM GONZALES RPH on 02/24/191542 Last Action: Continued on 03/13/202053 by SCHUYLER VARGAS MD Atorvastatin Calcium (Atorvastatin Calcium) 40 Mg Tablet, 40 MG PO QHS for dyslipidemia for 30 Days, #30 Prescribed by: ORAL ZABALA MD on 03/18/20 0744 Buspirone Hcl (Buspirone Hcl) 5 Mg Tablet, 5 MG PO TID for ANXIETY for 30 Days, #90 Prescribed by: ORAL ZABALA MD on 03/18/20 0744 Clopidogrel Bisulfate (Clopidogrel) 75 Mg Tablet, 75 MG PO DAILYWBKFT for antiplatelet for 30 Days, #30 Prescribed by: ORAL ZABALA MD on 03/18/20 0744 Donepezil Hcl (Donepezil Hcl) 10 Mg Tablet, 10 MG PO HS, (Reported) Entered as Reported by: SANAM GONZALES RPH on 02/24/191545 Last Action: Continued on 03/13/202053 by SCHUYLER VARGAS MD Fa/Mv,Ca,Iron,Min/Lycopene/Lut (Centravites Tablet) 1 Each Tablet, 1 EACH PO DAILY for , (Reported) Entered as Reported by: Aleah Tejada on 03/13/201850 Last Taken: 1 on Unknown Date & Time Last Action: Converted on 03/13/202053 by SCHUYLER VARGAS MD Folic Acid (Folic Acid) 1 Mg Tablet, 1 TAB PO DAILY, #90 Ref 1 (Reported) Entered as Reported by: SANAM GONZALES RPH on 02/24/191545 Last Action: Continued on 03/13/202053 by SCHUYLER VARGAS MD Guaifenesin/Dextromethorphan (Robitussin Cough-Chest Dm Liq) 237 Ml Liquid, 10 ML PO QHS for COUGH, (Reported) Entered as Reported by: Aleah Tejada on 03/13/201850 Last Taken: 10 on Unknown Date & Time Last Action: New Order on 03/13/201850 by Aleah Tejada Levetiracetam (Keppra) 500 Mg Tablet, 500 MG PO BID for SEIZURES, (Reported) Entered as Reported by: Aleah Tejada on 03/13/201850 Last Taken: 500 on Unknown Date & Time Last Action: Continued on 03/13/202053 by SCHUYLER VARGAS MD Loratadine (Loratadine) 10 Mg Tablet, 1 TAB PO DAILY, #30 Ref 5 (Reported) Entered as Reported by: SANAM GONZALES RPH on 02/24/191545 Last Action: Converted on 03/13/202053 by SCHUYLER VARGAS MD Metoprolol Tartrate (Metoprolol Tartrate) 25 Mg Tablet, 12.5 MG PO BID for rate control for 30 Days, #30 Prescribed by: ORAL ZABALA MD on 03/18/20 0744 Sertraline Hcl (Zoloft) 100 Mg Tablet, 200 MG PO DAILY for ANTI-DEPRESSANT, Ref 0 (Reported) Entered as Reported by: SANAM GONZALES RPH on 02/24/191545 Last Action: Converted on 03/13/202053 by SCHUYLER VARGAS MD Thiamine Mononitrate (Vitamin B-1) 100 Mg Tablet, 100 MG PO DAILY, (Reported) Entered as Reported by: SANAM GONZALES RPH on 02/24/191546 Last Action: Continued on 03/13/202053 by SCHUYLER VARGAS MD Scheduled PRN Guaifenesin/Dextromethorphan (Robitussin Cough-Chest Dm Liq) 237 Ml Liquid, 10 ML PO PRN Q8HRS PRN for COUGH, (Reported) Entered as Reported by: Aleah Tejada on 03/13/201850 Last Taken: 10 on Unknown Date & Time Last Action: Converted on 03/13/202053 by SCHUYLER VARGAS MD Polyethylene Glycol 3350 (Miralax) 119 Gm Powder, 17 GM PO PRN DAILY PRN for CONSTIPATION, #255 Ref 0 (Reported) dissolve in water Entered as Reported by: Aleah Tejada on 03/13/201850 Last Taken: 17 on Unknown Date & Time Last Action: Continued on 03/13/202053 by SCHUYLER VARGAS MD Tramadol Hcl (Tramadol Hcl) 50 Mg Tablet, 50 MG PO Q6HRS PRN for PAIN for 5 Days, #20 Prescribed by: ORAL ZABALA MD on 03/18/20 0708 Justicifation of Admission Dx: Justifications for Admission: Justification of Admission Dx: Yes ORAL ZABALA MD Mar 18, 2020 07:50
[2020-03-18] MEDS ORDERED: LEVE500T56 PO (07:51)
[2020-03-18] MEDS: INSULIN LISPRO 300 UNITS/3 ML VIAL. SQ SCH ×3 (08:00→17:00)
[2020-03-18] MEDS: METOPROLOL TART IMMED RELEASE 25 MG TABLET. PO SCH (08:35)
[2020-03-18] MEDS: busPIRone 5 MG TABLET. PO SCH ×2 (08:35→14:40)
[2020-03-18] MEDS: CETIRIZINE HCL 10 MG TABLET. PO SCH (08:35)
[2020-03-18] MEDS: FOLIC ACID 1 MG TABLET. PO SCH (08:35)
[2020-03-18] MEDS: CLOPIDOGREL BISULFATE 75 MG TABLET PO SCH (08:35)
[2020-03-18] MEDS: THIAMINE 100 MG TABLET. PO SCH (08:36)
[2020-03-18] MEDS: levETIRAcetam 500 MG TABLET PO SCH (08:36)
[2020-03-18] MEDS: MULTIVITAMIN with MINERAL TABLET. PO SCH (08:36)
[2020-03-18] MEDS: ASPIRIN CHEWABLE 81 MG TABLET. PO SCH (08:36)
[2020-03-18] MEDS: FAMOTIDINE 20 MG TABLET. PO SCH (08:36)
[2020-03-18] MEDS: SERTRALINE 50 MG TABLET. PO SCH (08:36)
--- NOTE | 2020-03-18 08:42 | PDOC ---
PROGRESS NOTES Date of Service DATE: 03/18/20 TIME: 08:41 Assessment Problems Medical Problems: (1) Elevated troponin Status: Acute (2) Hypertensive urgency Status: Acute (3) Witnessed seizure-like activity Status: Acute Seizure activity, no recurrence Tiny area of acute ischemia in the left hippocampus on top of a massive left hemispheric stroke before, probably not clinically relevant Plan Rehabilitation modalities Continue levetiracetam at higher dose, 750 mg twice a day She is on aspirin, clopidogrel, and statin Return to [facility] Discussed with Dr. Thomas Subjective none Objective Vital Signs Date Time Temp Pulse Resp B/P (MAP) Pulse Ox O2 Delivery O2 Flow Rate FiO2 03/18/20 08:35 83 110/57 03/18/20 03:11 97.8 19 96 Room Air 97.8 03/17/20 08:00 2.0 Intake and Output 03/18/20 07:00 Intake Total 868 ml Output Total 900 ml Balance -32 ml Intake Oral 868 ml Output Urine Total 900 ml PHYSICAL EXAM Alert. Expressive and receptive aphasia PERRL. EOMI. CN: right central facial weakness. Muscle tone: increased on the right. Muscle strength: 2/5 right hemiparesis DTR: 2+ Plantar reflex: flexor Gait: not examined in bed. Sensory exam: no abnormal findings. No cerebellar signs elicited. Review of Relevant I have reviewed the following items kay (where applicable) has been applied. Labs Laboratory Tests Test 03/16/20 11:55 03/16/20 17:04 03/16/20 20:53 03/17/20 07:05 Glucose (Fingerstick) 122 mg/dL (70-99) 127 mg/dL (70-99) 116 mg/dL (70-99) White Blood Count 8.8 x10^3/uL (4.0-11.0) Red Blood Count 4.59 x10^6/uL (3.50-5.40) Hemoglobin 13.5 g/dL (12.0-15.5) Hematocrit 40.3 % (36.0-47.0) Mean Corpuscular Volume 88 fL (79-100) Mean Corpuscular Hemoglobin 30 pg (25-35) Mean Corpuscular Hemoglobin Concent 34 g/dL (31-37) Red Cell Distribution Width 14.5 % (11.5-14.5) Platelet Count 264 x10^3/uL (140-400) Neutrophils (%) (Auto) 52 % (31-73) Lymphocytes (%) (Auto) 40 % (24-48) Monocytes (%) (Auto) 7 % (0-9) Eosinophils (%) (Auto) 1 % (0-3) Basophils (%) (Auto) 1 % (0-3) Neutrophils # (Auto) 4.6 x10^3/uL (1.8-7.7) Lymphocytes # (Auto) 3.6 x10^3/uL (1.0-4.8) Monocytes # (Auto) 0.6 x10^3/uL (0.0-1.1) Eosinophils # (Auto) 0.1 x10^3/uL (0.0-0.7) Basophils # (Auto) 0.1 x10^3/uL (0.0-0.2) Sodium Level 144 mmol/L (136-145) Potassium Level 3.5 mmol/L (3.5-5.1) Chloride Level 107 mmol/L (98-107) Carbon Dioxide Level 29 mmol/L (21-32) Anion Gap 8 (6-14) Blood Urea Nitrogen 13 mg/dL (7-20) Creatinine 0.6 mg/dL (0.6-1.0) Estimated GFR (Cockcroft-Gault) 101.6 Glucose Level 100 mg/dL (70-99) Calcium Level 8.9 mg/dL (8.5-10.1) Test 03/17/20 07:49 03/17/20 12:20 03/17/20 17:01 03/17/20 20:47 Glucose (Fingerstick) 103 mg/dL (70-99) 82 mg/dL (70-99) 91 mg/dL (70-99) 112 mg/dL (70-99) Test 03/18/20 06:16 03/18/20 07:34 White Blood Count 8.9 x10^3/uL (4.0-11.0) Red Blood Count 4.81 x10^6/uL (3.50-5.40) Hemoglobin 14.3 g/dL (12.0-15.5) Hematocrit 42.7 % (36.0-47.0) Mean Corpuscular Volume 89 fL (79-100) Mean Corpuscular Hemoglobin 30 pg (25-35) Mean Corpuscular Hemoglobin Concent 34 g/dL (31-37) Red Cell Distribution Width 14.4 % (11.5-14.5) Platelet Count 257 x10^3/uL (140-400) Neutrophils (%) (Auto) 53 % (31-73) Lymphocytes (%) (Auto) 38 % (24-48) Monocytes (%) (Auto) 7 % (0-9) Eosinophils (%) (Auto) 1 % (0-3) Basophils (%) (Auto) 1 % (0-3) Neutrophils # (Auto) 4.7 x10^3/uL (1.8-7.7) Lymphocytes # (Auto) 3.3 x10^3/uL (1.0-4.8) Monocytes # (Auto) 0.7 x10^3/uL (0.0-1.1) Eosinophils # (Auto) 0.1 x10^3/uL (0.0-0.7) Basophils # (Auto) 0.1 x10^3/uL (0.0-0.2) Sodium Level 144 mmol/L (136-145) Potassium Level 3.9 mmol/L (3.5-5.1) Chloride Level 108 mmol/L (98-107) Carbon Dioxide Level 27 mmol/L (21-32) Anion Gap 9 (6-14) Blood Urea Nitrogen 18 mg/dL (7-20) Creatinine 0.6 mg/dL (0.6-1.0) Estimated GFR (Cockcroft-Gault) 101.6 Glucose Level 105 mg/dL (70-99) Calcium Level 9.3 mg/dL (8.5-10.1) Glucose (Fingerstick) 105 mg/dL (70-99) Laboratory Tests Test 03/17/20 12:20 03/17/20 17:01 03/17/20 20:47 03/18/20 06:16 Glucose (Fingerstick) 82 mg/dL (70-99) 91 mg/dL (70-99) 112 mg/dL (70-99) White Blood Count 8.9 x10^3/uL (4.0-11.0) Red Blood Count 4.81 x10^6/uL (3.50-5.40) Hemoglobin 14.3 g/dL (12.0-15.5) Hematocrit 42.7 % (36.0-47.0) Mean Corpuscular Volume 89 fL (79-100) Mean Corpuscular Hemoglobin 30 pg (25-35) Mean Corpuscular Hemoglobin Concent 34 g/dL (31-37) Red Cell Distribution Width 14.4 % (11.5-14.5) Platelet Count 257 x10^3/uL (140-400) Neutrophils (%) (Auto) 53 % (31-73) Lymphocytes (%) (Auto) 38 % (24-48) Monocytes (%) (Auto) 7 % (0-9) Eosinophils (%) (Auto) 1 % (0-3) Basophils (%) (Auto) 1 % (0-3) Neutrophils # (Auto) 4.7 x10^3/uL (1.8-7.7) Lymphocytes # (Auto) 3.3 x10^3/uL (1.0-4.8) Monocytes # (Auto) 0.7 x10^3/uL (0.0-1.1) Eosinophils # (Auto) 0.1 x10^3/uL (0.0-0.7) Basophils # (Auto) 0.1 x10^3/uL (0.0-0.2) Sodium Level 144 mmol/L (136-145) Potassium Level 3.9 mmol/L (3.5-5.1) Chloride Level 108 mmol/L (98-107) Carbon Dioxide Level 27 mmol/L (21-32) Anion Gap 9 (6-14) Blood Urea Nitrogen 18 mg/dL (7-20) Creatinine 0.6 mg/dL (0.6-1.0) Estimated GFR (Cockcroft-Gault) 101.6 Glucose Level 105 mg/dL (70-99) Calcium Level 9.3 mg/dL (8.5-10.1) Test 03/18/20 07:34 Glucose (Fingerstick) 105 mg/dL (70-99) Microbiology 03/13/20 Urine Culture - Final, Complete 03/13/20 Blood Culture - Preliminary, Resulted NO GROWTH AFTER 4 DAYS Medications Current Medications Sodium Chloride 1,000 ml @ 1,000 mls/hr 1X ONCE IV Last administered on 03/13/20at 13:30; Start 03/13/20 at 12:45; Stop 03/13/20 at 13:44; Status DC Lorazepam (Ativan Inj) 0.5 mg 1X ONCE IVP Last administered on 03/13/20at 13:20; Start 03/13/20 at 13:00; Stop 03/13/20 at 13:01; Status DC Aspirin (Aspirin Rectal Supp) 300 mg 1X ONCE MO Last administered on 03/13/20at 14:15; Start 03/13/20 at 14:15; Stop 03/13/20 at 14:16; Status DC Labetalol HCl (Normodyne Iv Push) 20 mg 1X ONCE IVP Last administered on 03/13/20at 14:20; Start 03/13/20 at 14:15; Stop 03/13/20 at 14:16; Status DC Ondansetron HCl (Zofran) 4 mg PRN Q8HRS PRN IV NAUSEA/VOMITING; Start 03/13/20 at 14:30; Stop 03/13/20 at 16:26; Status DC Insulin Human Lispro (HumaLOG) 0-5 UNITS TIDWMEALS SQ ; Start 03/13/20 at 17:00; Stop 03/13/20 at 16:28; Status DC Dextrose (Dextrose 50%-Water Syringe) 12.5 gm PRN Q15MIN PRN IV SEE COMMENTS; Start 03/13/20 at 14:30; Status Cancel Ondansetron HCl (Zofran) 4 mg PRN Q4HRS PRN IV NAUSEA/VOMITING; Start 03/13/20 at 16:30 Potassium Chloride/Water 100 ml @ 100 mls/hr Q1H IV Last administered on 03/13/20at 19:51; Start 03/13/20 at 17:00; Stop 03/13/20 at 18:59; Status DC Magnesium Sulfate 50 ml @ 25 mls/hr 1X ONCE IV Last administered on 03/13/20at 16:48; Start 03/13/20 at 17:00; Stop 03/13/20 at 18:59; Status DC Insulin Human Lispro (HumaLOG) 0-9 UNITS TIDWMEALHC SQ ; Start 03/13/20 at 17:00 Dextrose (Dextrose 50%-Water Syringe) 12.5 gm PRN Q15MIN PRN IV SEE COMMENTS; Start 03/13/20 at 16:30 Atorvastatin Calcium (Lipitor) 40 mg QHS PO Last administered on 03/17/20 20:47; Start 03/13/20 at 21:00 Sodium Chloride 1,000 ml @ 75 mls/hr 1X ONCE IV Last administered on 03/13/20at 18:53; Start 03/13/20 at 18:30; Stop 03/14/20 at 07:49; Status DC Aspirin (Aspirin Chewable) 81 mg DAILY PO Last administered on 03/18/20 08:36; Start 03/14/20 at 09:00 Buspirone HCl (Buspar) 5 mg TID PO Last administered on 03/18/20 08:35; Start 03/13/20 at 21:00 Donepezil HCl (Aricept) 10 mg HS PO Last administered on 03/17/20 20:48; Start 03/13/20 at 21:00 Folic Acid (Folic Acid) 1 mg DAILY PO Last administered on 03/18/20 08:35; Start 03/14/20 at 09:00 Levetiracetam (Keppra) 500 mg BID PO ; Start 03/13/20 at 21:00; Stop 03/13/20 at 21:03; Status DC Polyethylene Glycol (miraLAX Powder BULK BOTTLE) 17 gm PRN DAILY PRN PO CONSTIPATION; Start 03/13/20 at 21:00 Thiamine Mononitrate (Vitamin B-1) 100 mg DAILY PO Last administered on 03/18/20 08:36; Start 03/14/20 at 09:00 Multivitamins (Thera M Plus) 1 tab DAILY PO Last administered on 03/18/20 08: 36; Start 03/14/20 at 09:00 Guaifenesin (Robitussin Dm) 10 ml PRN Q6HRS PRN PO COUGH; Start 03/13/20 at 21:15 Cetirizine HCl (ZyrTEC) 10 mg DAILY PO Last administered on 03/18/20 08:35; Start 03/14/20 at 09:00 Sertraline HCl (Zoloft) 200 mg DAILY PO Last administered on 03/18/20 08:36; Start 03/14/20 at 09:00 Levetiracetam 750 mg/Dextrose 107.5 ml @ 420 mls/hr Q12HR IV Last administered on 03/14/20at 21:00; Start 03/13/20 at 21:00; Stop 03/14/20 at 23:17; Status DC Heparin Sodium (Porcine) (Heparin Sodium) 4,000 unit 1X ONCE IV Last administered on 03/14/20at 00:12; Start 03/13/20 at 23:45; Stop 03/14/20 at 19:05; Status DC Heparin Sodium/ Dextrose 250 ml @ 0 mls/hr CONT PRN IV PER PROTOCOL Last administered on 03/14/20at 00:28; Start 03/13/20 at 23:45; Stop 03/14/20 at 19:06; Status DC Heparin Sodium (Porcine) (Heparin Sodium) 2,200 unit PRN Q6HRS PRN IV FOR UFH LEVEL LESS THAN 0.2; Start 03/13/20 at 23:45; Stop 03/14/20 at 19:06; Status DC Info (Anti-Coagulation Monitoring By Pharmacy) 1 each PRN DAILY PRN MC SEE COMMENTS Last administered on 03/14/20at 15:59; Start 03/14/20 at 16:00; Stop 03/15/20 at 07:26; Status DC Levetiracetam (Keppra) 750 mg BID PO Last administered on 03/18/20at 08:36; Start 03/15/20 at 09:00 Metoprolol Tartrate (Lopressor) 12.5 mg BID PO Last administered on 03/18/20at 08:35; Start 03/15/20 at 12:00 Clopidogrel Bisulfate (Plavix) 75 mg DAILYWBKFT PO Last administered on 03/18/20at 08:35; Start 03/16/20 at 08:00 Clopidogrel Bisulfate (Plavix) 75 mg 1X ONCE PO Last administered on 03/15/20at 12:12; Start 03/15/20 at 12:00; Stop 03/15/20 at 12:01; Status DC Potassium Chloride (Klor-Con) 40 meq 1X PRN PO PER PROTOCOL Last administered on 03/16/20at 12:34; Start 03/16/20 at 11:00 Magnesium Oxide (Magnesium Oxide) 400 mg BID PO ; Start 03/16/20 at 21:00; Stop 03/16/20 at 10:54; Status DC Potassium Chloride/Water 100 ml @ 100 mls/hr Q1H IV ; Start 03/16/20 at 11:00; Stop 03/16/20 at 10:54; Status DC Magnesium Sulfate 50 ml @ 25 mls/hr Q24H IV ; Start 03/16/20 at 11:00; Stop 03/16/20 at 10:54; Status DC Potassium Chloride/Water 100 ml @ 100 mls/hr Q1H PRN IV low k; Start 03/16/20 at 11:00; Stop 03/16/20 at 10:54; Status DC Potassium Chloride (Klor-Con) 40 meq 1X PRN PRN PO PER PROTOCOL; Start 03/16/20 at 12:15 Magnesium Oxide (Magnesium Oxide) 400 mg PRN BID PRN PO SEE COMMENTS; Start 03/16/20 at 21:00 Potassium Chloride/Water 100 ml @ 100 mls/hr PRN Q1HR PRN IV SEE COMMENTS; Start 03/16/20 at 12:15 Magnesium Sulfate 50 ml @ 25 mls/hr PRN DAILY PRN IV SEE COMMENTS; Start 03/16/20 at 12:15 Potassium Chloride/Water 100 ml @ 100 mls/hr PRN Q1HR PRN IV SEE COMMENTS; Start 03/16/20 at 12:15 Famotidine (Pepcid) 20 mg BID PO Last administered on 03/18/20at 08:36; Start 03/16/20 at 13:00 Active Scripts Active Keppra (Levetiracetam) 500 Mg Tablet 750 Mg PO BID 30 Days Metoprolol Tartrate 25 Mg Tablet 12.5 Mg PO BID 30 Days Atorvastatin Calcium 40 Mg Tablet 40 Mg PO QHS 30 Days Clopidogrel (Clopidogrel Bisulfate) 75 Mg Tablet 75 Mg PO DAILYWBKFT 30 Days Buspirone Hcl 5 Mg Tablet 5 Mg PO TID 30 Days Tramadol Hcl 50 Mg Tablet 50 Mg PO Q6HRS PRN 5 Days Reported Robitussin Cough-Chest Dm Liq (Guaifenesin/Dextromethorphan) 237 Ml Liquid 10 Ml PO PRN Q8HRS PRN Robitussin Cough-Chest Dm Liq (Guaifenesin/Dextromethorphan) 237 Ml Liquid 10 Ml PO QHS Miralax (Polyethylene Glycol 3350) 119 Gm Powder 17 Gm PO PRN DAILY PRN dissolve in water Centravites Tablet (Fa/Mv,Ca,Iron,Min/Lycopene/Lut) 1 Each Tablet 1 Each PO DAILY Acetaminophen 325 Mg Tablet 650 Mg PO TID Vitamin B-1 (Thiamine Mononitrate) 100 Mg Tablet 100 Mg PO DAILY Zoloft (Sertraline Hcl) 100 Mg Tablet 200 Mg PO DAILY Loratadine 10 Mg Tablet 1 Tab PO DAILY Folic Acid 1 Mg Tablet 1 Tab PO DAILY Donepezil Hcl 10 Mg Tablet 10 Mg PO HS Aspirin 81 Mg Tab.chew 1 Tab PO DAILY Vitals/I & O Vital Sign - Last 24 Hours 03/17/20 03/17/20 03/17/20 03/17/20 08:45 10:50 15:00 19:00 Temp 98.3 98.3 98.0 98.3 98.3 98.0 Pulse 93 91 115 104 Resp 16 18 19 B/P (MAP) 119/65 131/63 (85) 128/65 (86) 131/59 (83) Pulse Ox 97 90 94 O2 Delivery Room Air Room Air Room Air 03/17/20 03/17/20 03/17/20 03/18/20 20:00 20:48 23:00 03:11 Temp 98.5 97.8 98.5 97.8 Pulse 91 99 83 Resp 19 19 B/P (MAP) 131/59 117/69 (85) 110/57 (74) Pulse Ox 95 96 O2 Delivery Room Air Room Air Room Air 03/18/20 08:35 Pulse 83 B/P (MAP) 110/57 Intake and Output 03/17/20 03/17/20 03/18/20 15:00 23:00 07:00 Intake Total 468 ml 100 ml 300 ml Output Total 400 ml 500 ml Balance 468 ml -300 ml -200 ml Justicifation of Admission Dx: Justifications for Admission: Justification of Admission Dx: Yes NATALI JOHNSON MD Mar 18, 2020 08:42
[2020-03-18 11:00] VITALS: BP 130/58
--- NOTE | 2020-03-18 11:58 | PDOC ---
ELMO MARTINEZ [employer] 03/18/20 1158: CARDIO Progress Notes Date and Time Date of Service 03/18/20 Time of Evaluation 1150 Subjective Subjective: No Chest Pain, No shortness of breath Vitals Vitals Vital Signs Date Time Temp Pulse Resp B/P (MAP) Pulse Ox O2 Delivery O2 Flow Rate FiO2 03/18/20 11:00 98.4 87 16 130/58 (82) 98 Room Air 98.4 03/17/20 08:00 2.0 Weight Weight [ ] Input and Output Intake and Output Intake and Output 03/18/20 07:00 Intake Total 868 ml Output Total 900 ml Balance -32 ml Intake Oral 868 ml Output Urine Total 900 ml Laboratory Labs Laboratory Tests Test 03/17/20 12:20 03/17/20 17:01 03/17/20 20:47 03/18/20 06:16 Glucose (Fingerstick) 82 mg/dL (70-99) 91 mg/dL (70-99) 112 mg/dL (70-99) White Blood Count 8.9 x10^3/uL (4.0-11.0) Red Blood Count 4.81 x10^6/uL (3.50-5.40) Hemoglobin 14.3 g/dL (12.0-15.5) Hematocrit 42.7 % (36.0-47.0) Mean Corpuscular Volume 89 fL (79-100) Mean Corpuscular Hemoglobin 30 pg (25-35) Mean Corpuscular Hemoglobin Concent 34 g/dL (31-37) Red Cell Distribution Width 14.4 % (11.5-14.5) Platelet Count 257 x10^3/uL (140-400) Neutrophils (%) (Auto) 53 % (31-73) Lymphocytes (%) (Auto) 38 % (24-48) Monocytes (%) (Auto) 7 % (0-9) Eosinophils (%) (Auto) 1 % (0-3) Basophils (%) (Auto) 1 % (0-3) Neutrophils # (Auto) 4.7 x10^3/uL (1.8-7.7) Lymphocytes # (Auto) 3.3 x10^3/uL (1.0-4.8) Monocytes # (Auto) 0.7 x10^3/uL (0.0-1.1) Eosinophils # (Auto) 0.1 x10^3/uL (0.0-0.7) Basophils # (Auto) 0.1 x10^3/uL (0.0-0.2) Sodium Level 144 mmol/L (136-145) Potassium Level 3.9 mmol/L (3.5-5.1) Chloride Level 108 mmol/L (98-107) Carbon Dioxide Level 27 mmol/L (21-32) Anion Gap 9 (6-14) Blood Urea Nitrogen 18 mg/dL (7-20) Creatinine 0.6 mg/dL (0.6-1.0) Estimated GFR (Cockcroft-Gault) 101.6 Glucose Level 105 mg/dL (70-99) Calcium Level 9.3 mg/dL (8.5-10.1) Test 03/18/20 07:34 Glucose (Fingerstick) 105 mg/dL (70-99) Microbiology Micro Microbiology 03/13/20 Urine Culture - Final, Complete 03/13/20 Blood Culture - Preliminary, Resulted NO GROWTH AFTER 4 DAYS Physical Exam HEENT: Neck Supple W Full Motion Chest: Symmetric LUNGS: Clear to Auscultation Heart: S1S2, RRR, murmurs (3/6 systolic murmur ) Abdomen: Soft N/T Extremities: No Edema, Other (right hemiparesis ) Neurology: alert, follow commands, other (expressive aphasia ) Assessment Assessment 1. NSTEMI; trop peak 3.7. Possibly type II, demand ischemia. Echo with prese rved LV systolic function. No WMA. 2. H/o CVA; ? new acute stroke. 3. Seizure 4. Hypertensive urgency; now controlled 5. Dyslipidemia Recommendations Secondary prevention measures; ASA/Plavix, atorvastatin, and metoprolol Will arrange outpatient ischemic evaluation with [facility] Follow up in our office with Dr. Heard as scheduled. Justicifation of Admission Dx: Justifications for Admission: Justification of Admission Dx: Yes NELSON HEARD MD 03/18/201908: CARDIO Progress Notes Plan Plan The patient was seen and interviewed as well as examined at the bedside. The chart was reviewed. The case was discussed. Agree with the plan of care. ELMO MARTINEZ APRN Mar 18, 2020 11:58 NELSON HEARD MD Mar 18, 2020 19:09
[2020-03-18 15:00] VITALS: BP 105/54
--- NOTE | 2020-03-18 17:45 | NUR ---
Report called to Luzma at [facility]. Meds Reviewed, updated her on discharge plan of care. I did not have the exact date for her follow up or outpatient stress test. I adviced they call Dr. Heard's office tomorrow. Phone number included on discharge paperwork that was included in the packet. Patient denied questions at discharge. I left a VM for to call
--- NOTE | 2020-03-18 19:07 | NUR ---
Discharge Note: TOMMY VALDIVIA [address] Discharge instructions and discharge home medications reviewed with Patient and a copy given. All questions have been answered and understanding verbalized. The following instructions and handouts were given: Report Called to Luzma at [facility] Discontinued lines and drains: Pt tolerated removal of both IV's. Pressure applied. No bleeding. Catheter Tip intact. Patient discharged to [facility] via stretcher transport.
== END 2020-03-18 18:35 | DRG 100 ==
LOC: ER 12:37 → 2 SOUTH 14:18
PROVIDERS: ADMIT Internal Medicine; ATTEND Internal Medicine
DX: R56.9 Unspecified convulsions (principal); I21.A1 Myocardial infarction type 2; I16.1 Hypertensive emergency; I69.351 Hemiplegia and hemiparesis following cerebral infarction affecting right dominant side; G93.89 Other specified disorders of brain; Z20.828 Contact with and (suspected) exposure to other viral communicable diseases; F41.9 Anxiety disorder, unspecified; F32.9 Major depressive disorder, single episode, unspecified; I10 Essential (primary) hypertension; E11.9 Type 2 diabetes mellitus without complications; F03.90 Unspecified dementia, unspecified severity, without behavioral disturbance, psychotic disturbance, mood disturbance, and anxiety; E78.00 Pure hypercholesterolemia, unspecified; Z96.652 Presence of left artificial knee joint; D72.829 Elevated white blood cell count, unspecified; R29.810 Facial weakness; E78.5 Hyperlipidemia, unspecified; M27.40 Unspecified cyst of jaw; E66.9 Obesity, unspecified; Z68.36 Body mass index [BMI] 36.0-36.9, adult; I69.320 Aphasia following cerebral infarction; Z88.2 Allergy status to sulfonamides; Z79.02 Long term (current) use of antithrombotics/antiplatelets
CPT/HCPCS: 36415; 70450; 70551; 71045; 80048; 80053; 80061; 80177; 81001; 82553; 82962; 83605; 83735; 84145; 84484; 85007; 85025; 85520; 85610; 85730; 87040; 87086; 93005; 93306; 96361; 96374; 96375; 99291; J1644; J1953; J2060; J3475; J3480; J3490; J7030; J7060; 92610-GN; G0378; U0003-CS

== ENCOUNTER → 2020-05-02 | Day surgery (SDC) | payer OTHER ==
[~2020-05-02] MED LIST changes: +ACET325T21 PO; +ALBUMIN HUMAN 25% 100 ML IV ONE; +ALBUMIN HUMAN 5% 500 ML IV ONE; +BUSP5TAB PO; +CHLO15MO2 MM; +CLOP75TA PO; +CONTRAST GIVEN. MC PRN; +FUROSEMIDE 20 MG/2 ML VIAL. IVP ONE; +FUROSEMIDE 20 MG/2 ML VIAL. ONE; +FUROSEMIDE 40 MG/4 ML VIAL. ONE; +GUAI237L83 PO; +IOHEXOL 300 MG/ML 100ML VIAL. IV ONE; +LACT1CAP6 PO; +LEVE500T56 PO; +LIDOCAINE 2% PF 5 ML VIAL. ONE; +MAGNESIUM SULFATE 1GM 100 ML IV ONE; +MANNITOL 25% 12.5 G/50 ML VIAL. ONE; +METO25TA4 PO; +NALOXONE 2 MG/2 ML DISP.SYRIN. IV ONE; +NOREPINEPHRINE VIAL 8 MG in IV DEXTROSE 5% 250 ML IV PRN; +PHENYLEPHRINE in 0.9% NACL PF 1 MG/10 ML SYRINGE. IV ONE; +POLY119P4 PO; +POLY2500 PO; +POTASSIUM CHLORIDE 20MEQ 100 ML IV ONE; +ROCURONIUM 100 MG/10 ML VIAL. ONE; +SEVOFLURANE > 120 MINUTES. IH ONE; +VECURONIUM BOLUS 10 MG VIAL. IV ONE; +[UNRECOGNIZED DRUG - OTHER] PO; +niCARdipine INJ. IV ONE
[2020-05-02 14:00] VITALS: BP 144/86
--- NOTE | 2020-05-02 19:04 | RAD ---
Chest AP portable at 1836: Reason for examination: Central line placement. Follow-up infiltrates. Comparison is made to previous study dated 05/01/2020. Endotracheal tube and NG tube remain present. Central venous catheter is present on the right with the tip in the region of the right atrium. No pneumothorax is seen. The heart size is normal. Mediastinum is unremarkable. Lung coleman show continued presence of interstitial and alveolar opacities bilaterally but predominantly in the lower lobes. These appear to progress at the left lung base. No acute bony abnormalities are seen. IMPRESSION: Right central venous line present with the tip in the right atrium. No pneumothorax. Continued presence of interstitial and alveolar opacities which are predominantly basilar and appear to show worsening since previous exam especially at the left lung base. Electronically signed by: Sigrid Donnelly MD (05/02/2020 7:02 PM) BIRD
[2020-05-02 20:17] LABS: BASE EXCESS ABG -4 mmol/L (-3-3); HCO3 ABG 21 mmol/L (21-28); PCO2 ABG 39 mmHg (35-46); PO2 ABG 470 mmHg (65-108)
[2020-05-02 20:18] LABS: SAT O2 ABG 100 % (92-99)
[2020-05-02 20:23] LABS: ALBUMIN 2.7 g/dL (3.4-5.0); ALBUMIN/GLOBULIN RATIO 1.1 (1.0-1.7); CALCIUM 8.1 mg/dL (8.5-10.1); CREATININE 0.6 mg/dL (0.6-1.0); GFR 101.6; POTASSIUM 3.4 mmol/L (3.5-5.1); TOTAL BILIRUBIN 0.4 mg/dL (0.2-1.0); TOTAL PROTEIN 5.2 g/dL (6.4-8.2)
[2020-05-02 23:26] LABS: BILIRUBIN,URINE NEGATIVE (NEG); CLARITY,URINE CLEAR; COLOR,URINE YELLOW; NITRITE,URINE NEGATIVE (NEG); PH,URINE 5.5 (<5.0-8.0); PROTEIN,URINE 30 mg/dL (NEG-TRACE); UROBILINOGEN,URINE 0.2 mg/dL (0.2 mg/dL)
[2020-05-02 23:30] LABS: AMORPHOUS SEDIMENT,UR PRESENT /HPF; BACTERIA,URINE 0 /HPF (0-FEW); RBC,URINE OCC /HPF (0-2)
[2020-05-03 00:21] LABS: BASO % 0 % (0-3); EOS % 0 % (0-3); HEMOGLOBIN 9.7 g/dL (12.0-15.5); LYMPH # 1.1 x10^3/uL (1.0-4.8); LYMPH % 10 % (24-48); MEAN CORPUSCULAR HEMOGLOBIN 30 pg (25-35); MEAN CORPUSCULAR HGB CONC 34 g/dL (31-37); MEAN CORPUSCULAR VOLUME 90 fL (79-100); MONO # 0.1 x10^3/uL (0.0-1.1); MONO % 1 % (0-9); NEUT # 9.9 x10^3/uL (1.8-7.7); NEUT % 89 % (31-73); PLATELET COUNT 167 x10^3/uL (140-400); RED BLOOD COUNT 3.22 x10^6/uL (3.50-5.40); RED CELL DISTRIBUTION WIDTH 14.5 % (11.5-14.5); WHITE BLOOD COUNT 11.1 x10^3/uL (4.0-11.0)
[2020-05-03 00:29] LABS: SAT O2 ABG 99 % (92-99)
[2020-05-03 00:33] LABS: ALBUMIN 2.6 g/dL (3.4-5.0); DIRECT BILIRUBIN 0.1 mg/dL (0.0-0.2); TOTAL BILIRUBIN 0.3 mg/dL (0.2-1.0); TOTAL PROTEIN 5.9 g/dL (6.4-8.2)
[2020-05-03 00:49] LABS: MAGNESIUM 1.9 mg/dL (1.8-2.4); PHOSPHORUS 3.3 mg/dL (2.6-4.7); PROTHROMBIN TIME PATIENT 16.7 SEC (11.7-14.0)
[2020-05-03 00:50] LABS: PCO2 ABG 36 mmHg (35-46); PO2 ABG 596 mmHg (65-108)
[2020-05-03 00:51] LABS: BASE EXCESS ABG -5 mmol/L (-3-3); FIO2 ABG 100; HCO3 ABG 20 mmol/L (21-28)
[2020-05-03 03:20] LABS: ALBUMIN 2.6 g/dL (3.4-5.0); ALBUMIN/GLOBULIN RATIO 0.8 (1.0-1.7); CALCIUM 8.8 mg/dL (8.5-10.1); CREATININE 0.5 mg/dL (0.6-1.0); GFR 125.4; POTASSIUM 3.5 mmol/L (3.5-5.1); TOTAL BILIRUBIN 0.3 mg/dL (0.2-1.0); TOTAL PROTEIN 5.9 g/dL (6.4-8.2)
[2020-05-03 05:27] LABS: BASE EXCESS ABG -4 mmol/L (-3-3); HCO3 ABG 21 mmol/L (21-28); PCO2 ABG 36 mmHg (35-46); SAT O2 ABG 99 % (92-99)
[2020-05-03 05:42] LABS: PO2 ABG 582 mmHg (65-108)
[2020-05-03 05:43] LABS: FIO2 ABG 100
[2020-05-03 06:07] LABS: BASO % 0 % (0-3); EOS % 0 % (0-3); HEMATOCRIT 24.5 % (36.0-47.0); HEMOGLOBIN 8.1 g/dL (12.0-15.5); LYMPH # 0.9 x10^3/uL (1.0-4.8); LYMPH % 9 % (24-48); MEAN CORPUSCULAR HEMOGLOBIN 30 pg (25-35); MEAN CORPUSCULAR HGB CONC 33 g/dL (31-37); MEAN CORPUSCULAR VOLUME 91 fL (79-100); MONO # 0.1 x10^3/uL (0.0-1.1); MONO % 2 % (0-9); NEUT # 8.7 x10^3/uL (1.8-7.7); NEUT % 89 % (31-73); PLATELET COUNT 140 x10^3/uL (140-400); RED CELL DISTRIBUTION WIDTH 14.7 % (11.5-14.5); WHITE BLOOD COUNT 9.7 x10^3/uL (4.0-11.0)
[2020-05-03 06:19] LABS: PROTHROMBIN TIME PATIENT 18.2 SEC (11.7-14.0)
[2020-05-03] MEDS: POTASSIUM PHOS,M-BASIC-D-BASIC 10 MMOL in IV NORMAL SALINE 100ML 100 ML IV SCH ×2 (07:00→09:00)
[2020-05-03 07:25] LABS: ALBUMIN 2.5 g/dL (3.4-5.0); ALBUMIN/GLOBULIN RATIO 0.7 (1.0-1.7); CALCIUM 8.9 mg/dL (8.5-10.1); CREATININE 0.5 mg/dL (0.6-1.0); GFR 125.4; POTASSIUM 3.5 mmol/L (3.5-5.1); TOTAL BILIRUBIN 0.3 mg/dL (0.2-1.0); TOTAL PROTEIN 5.9 g/dL (6.4-8.2)
[2020-05-03 07:36] LABS: DIRECT BILIRUBIN 0.1 mg/dL (0.0-0.2)
[2020-05-03 08:01] LABS: PHOSPHORUS 3.5 mg/dL (2.6-4.7)
--- NOTE | 2020-05-03 08:21 | RAD ---
Examination: CHEST AP ONLY History: Reason: ORGAN DONATION / Spl. Instructions: / History: Comparison: 05/02/2020. Findings: AP portable supine frontal view of the chest was obtained. Tracheal tube terminates 3 cm from the denisse. Enteric tube is in place. Right internal jugular catheter terminates overlying the right atrium. The cardiomediastinal silhouette is normal. Lungs are clear. There is no pneumothorax. No pleural effusion is appreciated. No acute bone abnormality. IMPRESSION: No acute cardiopulmonary process. Electronically signed by: Devin Zimmerman MD (05/03/2020 8:18 AM) [id number]
--- NOTE | 2020-05-03 10:53 | RAD ---
CT chest without contrast: Reason for examination: Organ donor. Lung placement. Helical images were obtained through the chest with no contrast administered. Reconstruction was performed in sagittal and coronal planes. Exposure: One or more of the following individualized dose reduction techniques were utilized for this examination: 1. Automated exposure control 2. Adjustment of the mA and/or kV according to patient size 3. Use of iterative reconstruction technique. Endotracheal tube and NG tube are present. There appear to be nodules in the thyroid gland with a rim calcified nodule in the left lobe measuring 2 cm in size. The thoracic aorta shows some arteriosclerotic vascular calcification but no aneurysmal dilatation. No significant adenopathy is seen in the mediastinum. The heart size is normal with no pericardial effusion. The lung coleman appear to show some dependent atelectasis at both lung bases. There is also however suggestion of some mild patchy hazy infiltrates in the right and left lower lung coleman. No pleural effusions are seen. No abnormality seen at the visualized portions of the liver or spleen. There does appear to be a 3.4 cm mass with calcifications in the left adrenal gland. No acute bony abnormalities are seen. IMPRESSION: 2 cm nodule with calcified rim in the left lobe of thyroid gland. Some mild patchy hazy infiltrates at the lung bases bilaterally. 3.4 cm mass with calcification in the left adrenal gland. Electronically signed by: Sigrid Donnelly MD (05/03/2020 10:50 AM) [id number]
[2020-05-03 12:03] LABS: BASO # 0.1 x10^3/uL (0.0-0.2); BASO % 1 % (0-3); EOS % 0 % (0-3); HEMATOCRIT 26.5 % (36.0-47.0); HEMOGLOBIN 8.9 g/dL (12.0-15.5); LYMPH % 9 % (24-48); MEAN CORPUSCULAR HEMOGLOBIN 30 pg (25-35); MEAN CORPUSCULAR HGB CONC 33 g/dL (31-37); MEAN CORPUSCULAR VOLUME 90 fL (79-100); MONO # 0.4 x10^3/uL (0.0-1.1); MONO % 3 % (0-9); NEUT # 10.1 x10^3/uL (1.8-7.7); NEUT % 88 % (31-73); PLATELET COUNT 160 x10^3/uL (140-400); RED BLOOD COUNT 2.93 x10^6/uL (3.50-5.40); RED CELL DISTRIBUTION WIDTH 14.3 % (11.5-14.5); WHITE BLOOD COUNT 11.5 x10^3/uL (4.0-11.0)
[2020-05-03 12:13] LABS: PROTHROMBIN TIME PATIENT 15.7 SEC (11.7-14.0)
[2020-05-03 12:25] LABS: ALBUMIN/GLOBULIN RATIO 1.2 (1.0-1.7); CALCIUM 8.7 mg/dL (8.5-10.1); CREATININE 0.5 mg/dL (0.6-1.0); DIRECT BILIRUBIN 0.1 mg/dL (0.0-0.2); GFR 125.4; MAGNESIUM 2.2 mg/dL (1.8-2.4); PHOSPHORUS 5.3 mg/dL (2.6-4.7); POTASSIUM 3.6 mmol/L (3.5-5.1); TOTAL BILIRUBIN 0.3 mg/dL (0.2-1.0); TOTAL PROTEIN 5.6 g/dL (6.4-8.2)
--- NOTE | 2020-05-03 14:02 | RAD ---
CT abdomen and pelvis with contrast: Reason for examination: Organ donor. Helical images were obtained through the abdomen pelvis with intravenous administration of 75 cc Omnipaque 300. Reconstruction was performed in sagittal and coronal planes. Exposure: One or more of the following individualized dose reduction techniques were utilized for this examination: 1. Automated exposure control 2. Adjustment of the mA and/or kV according to patient size 3. Use of iterative reconstruction technique. No focal abnormalities are seen at the liver, spleen, pancreas, gallbladder or right adrenal gland. There is a 3.7 cm mass in the left adrenal gland which appears to contain some fat and coarse calcifications. This probably represents an adrenal myelolipoma but differential includes but is not limited to adrenal adenoma and adrenocortical carcinoma. The stomach contains a NG tube. No gastric or duodenal abnormalities are evident. Small intestinal tract shows no abnormal dilatation or wall thickening. No abnormality seen at the appendix. The colon shows no diverticulosis, diverticulitis or colitis. The kidneys show no renal masses, renal calculi, hydronephrosis or evidence of obstructive uropathy. The abdominal aorta shows some arteriosclerotic vascular calcification. No abnormality seen at the inferior vena cava. The bladder is decompressed with Velázquez catheter in place. No abnormality seen at the vaginal cuff. Calcifications consistent with phleboliths are seen in the pelvis. No free fluid or free air is seen in the abdomen or pelvis. There are severe degenerative changes at the L2-3 disc level. No acute bony abnormalities are seen. IMPRESSION: 3.7 cm left adrenal mass which appears to contain fat and calcifications. This likely represents an myelolipoma however differential diagnosis includes adrenal adenoma and adrenal cortical carcinoma. Severe degenerative spondylosis at the L2-3 disc level. Electronically signed by: Sigrid Donnelly MD (05/03/2020 2:00 PM) [id number]
[2020-05-03] MEDS: VASOPRESSIN 20 UNIT in IV DEXTROSE 5% 100ML 100 ML IV PRN ×2 (17:14→23:56)
[2020-05-03 18:40] LABS: PROTHROMBIN TIME PATIENT 16.1 SEC (11.7-14.0)
[2020-05-03 18:42] LABS: BASO % 0 % (0-3); EOS % 0 % (0-3); HEMATOCRIT 25.4 % (36.0-47.0); HEMOGLOBIN 8.5 g/dL (12.0-15.5); LYMPH # 1.1 x10^3/uL (1.0-4.8); LYMPH % 9 % (24-48); MEAN CORPUSCULAR HEMOGLOBIN 30 pg (25-35); MEAN CORPUSCULAR HGB CONC 33 g/dL (31-37); MEAN CORPUSCULAR VOLUME 90 fL (79-100); MONO # 0.5 x10^3/uL (0.0-1.1); MONO % 4 % (0-9); NEUT # 9.7 x10^3/uL (1.8-7.7); NEUT % 86 % (31-73); PLATELET COUNT 157 x10^3/uL (140-400); RED BLOOD COUNT 2.84 x10^6/uL (3.50-5.40); WHITE BLOOD COUNT 11.3 x10^3/uL (4.0-11.0)
[2020-05-03 18:44] LABS: MAGNESIUM 2.2 mg/dL (1.8-2.4); PHOSPHORUS 4.1 mg/dL (2.6-4.7)
[2020-05-03 18:46] LABS: ALBUMIN 2.8 g/dL (3.4-5.0); ALBUMIN/GLOBULIN RATIO 0.9 (1.0-1.7); CALCIUM 9.1 mg/dL (8.5-10.1); CREATININE 0.5 mg/dL (0.6-1.0); GFR 125.4; POTASSIUM 3.8 mmol/L (3.5-5.1); TOTAL BILIRUBIN 0.3 mg/dL (0.2-1.0)
[2020-05-03 18:56] LABS: ALBUMIN 2.8 g/dL (3.4-5.0); DIRECT BILIRUBIN 0.1 mg/dL (0.0-0.2); TOTAL BILIRUBIN 0.3 mg/dL (0.2-1.0)
[2020-05-03 20:02] LABS: % BANDS 5 % (0-9); % LYMPHS 8 % (24-48); % MONOS 2 % (0-10); % SEGS 85 % (35-66); PLT ESTIMATE ADEQUATE (ADEQUATE)
[2020-05-03 22:53] LABS: BILIRUBIN,URINE MODERATE (NEG); CLARITY,URINE CLEAR; COLOR,URINE AMBER; NITRITE,URINE NEGATIVE (NEG); PH,URINE 5.5 (<5.0-8.0); PROTEIN,URINE 30 mg/dL (NEG-TRACE)
[2020-05-03 23:06] LABS: HYALINE CASTS, URINE MODERATE /HPF
[2020-05-03 23:07] LABS: BACTERIA,URINE 0 /HPF (0-FEW); RBC,URINE OCC /HPF (0-2)
[2020-05-04 00:09] LABS: HEMOGLOBIN A1C 5.3 % (4.8-5.6)
--- NOTE | 2020-05-14 13:13 | PATHOLOGY ---
[facility] Accession Number: [id number] . 01 Material submitted: . PART A: liver - LIVER CORE BIOPSY - FS PART B: adrenal gland - LEFT ADRENAL MASS. Modifiers: left . 01 Clinical history: . [employer] . 02 Frozen section diagnosis: . FROZEN SECTION DIAGNOSIS A. Liver, needle biopsy: - Less than 20% macrovesicular steatosis, negative for cirrhosis, negative for bridging fibrosis, negative for zone 3 necrosis (hypotensive type), negative for cellular infiltrates consistent with active inflammation. . The findings are discussed with Betsy from the [facility] and a written note is placed in the patient's chart. . B. Left adrenal mass: - 5 x 3.5 cm cortical mass - clear cell morphology with focal degenerative changes, favor adenoma. . The findings are discussed with Betsy from the [facility] and a progress note is placed in the patient's chart. . . GROSS DESCRIPTION A. Received fresh from the operating room labeled liver biopsy are two fanny brown needle core biopsies of liver tissue each measuring 0.1 cm in diameter and 0.6 and 0.8 cm in length respectively. The tissue is frozen and submitted in its entirety in cassette A1. . B. Received fresh from the operating room labeled left adrenal mass is a 5.3 x 3.5 x 3 cm ovoid mass, with an attached segment of adipose tissue, measuring 2.0 c 3.0 cm. The surface of the mass is smooth. The margin is inked. Sectioning reveals a dull yellow variagated cut surface with areas of hemorrhage and degenerative change, suggestive of necrosis. There are also focal areas that have a light rose/yellow homogenous appearance scattered throughout. Normal adrenal cortico-medullary parenchyma is not identified. A physician representative section is frozen and submitted as cassette B1. Additional physician representative sections are submitted in cassettes B2-B5. . (YESI:brandi; 05/07/2020) . . Frozen section performed at [facility], [address] [place] [address], [place] [address]. IND/MBR . 03 Diagnosis: A. Liver, needle biopsy: - Steatosis, mild (approximately 20%), negative for significant fibrosis/cirrhosis. - Negative for significant necroinflammatory activity. . B. Adrenal "mass left", excision: - Adrenal cortical adenoma, with focal lipomatous metaplasia, oncocytic change, hemorrhage and focal degenerative change. . (MLK:data programmer; 05/11/2020) MBR 05/14/2020 1157 Local . 03 Electronically signed: . Tai Claros MD, Pathologist NPI- [id number] . 01 Gross description: . A. PLEASE SEE GROSS DESCRIPTION UNDER FROZEN SECTION DIAGNOSIS. . B. PLEASE SEE GROSS DESCRIPTION UNDER FROZEN SECTION DIAGNOSIS. . B. After initial microscopic examination, the remainder of the specimen is submitted in cassettes B6 through B21. (CAA; 05/07/2020) QAC/QAC 05/08/2020 1743 Local . 03 Pathologist provided ICD-10: K76.0, D35.02 . 03 CPT . 535698, 447187, 927740, 040115 Specimen Comment: A courtesy copy of this report has been sent to [phone], [phone] Specimen Comment: [id number] Specimen Comment: Report sent to [facility] / DR MORE Performed at: 01 [facility] [address], [place], [place] [id number] MD Ra Bautista MD Phone: [phone] Performed at: 02 [facility] [address] [place], [place] [id number] MD Jeremy Lopez MD Phone: [phone] Performed at: 03 [facility] [address] [place], [place] [id number] MD Anant Schmidt MD Phone: [phone]
== END | disposition home or self-care (01) ==
LOC: OPS 12:42
DX: Z52.89 Donor of other specified organs or tissues (principal); C74.02 Malignant neoplasm of cortex of left adrenal gland; M47.816 Spondylosis without myelopathy or radiculopathy, lumbar region; E27.8 Other specified disorders of adrenal gland; I10 Essential (primary) hypertension; E11.9 Type 2 diabetes mellitus without complications; E78.5 Hyperlipidemia, unspecified; K21.9 Gastro-esophageal reflux disease without esophagitis; Z88.8 Allergy status to other drugs, medicaments and biological substances; Z79.899 Other long term (current) drug therapy; Z98.890 Other specified postprocedural states; Z79.82 Long term (current) use of aspirin; Z79.01 Long term (current) use of anticoagulants; Z79.84 Long term (current) use of oral hypoglycemic drugs; Z20.828 Contact with and (suspected) exposure to other viral communicable diseases
CPT/HCPCS: 36415; 36600; 71045; 71250; 74177; 80053; 80076; 81001; 82150; 82248; 82310; 82805; 82962; 82977; 83036; 83605; 83615; 83690; 83735; 84100; 84484; 85007; 85025; 85384; 85610; 85730; 87040; 87070; 87086; 87205; 87426; 94003; J1940; J2150; J2370; J3475; J3480; J3490; J7060; P9045; P9046; Q9967